=== PATIENT | male | born 1970 | race Caucasian/White ===

== ENCOUNTER → 2022-10-04 13:49 | Outpatient (BNVA) | payer MEDICAID, SELFPAY | PROVIDERS: PCP Nurse Practitioner; Visit Provider Student in an Organized Health Care Education/Training Program | DX: M17.0 Bilateral primary osteoarthritis of knee (principal) | CPT/HCPCS: 73560; 73565 ==

== ENCOUNTER → 2022-10-24 12:07 | Outpatient (BNVA) | payer MEDICAID, SELFPAY | PROVIDERS: PCP Nurse Practitioner; Visit Provider Family Medicine | DX: Z76.89 Persons encountering health services in other specified circumstances (principal); I10 Essential (primary) hypertension; Z01.818 Encounter for other preprocedural examination | CPT/HCPCS: 80053; 80061; 84153; 85025; 93005 ==

== ENCOUNTER 2022-11-07 16:59 | Outpatient (CLI) | payer BC, MEDICAID, SELFPAY ==
--- NOTE | 2022-11-07 17:15 | CT_ITS ---
WS: [id number] CT RIGHT knee, noncontrast HISTORY: M17.0 - Bilateral primary osteoarthritis of knee TECHNIQUE: Protocol for NAIN total knee replacement has been obtained. This includes axial imaging th rough the RIGHT hip, RIGHT knee and RIGHT ankle. DLP: 935.11 mGy.cm COMPARISON: RIGHT knee radiograph 10/04/2022 Pelvis: There is mild narrowing of the SI joints and hip joints. No fracture or dislocation. No destr uctive bone lesions. RIGHT knee: Tricompartment osteoarthritic changes. Hypertrophic bone. Joint spaces are moderately cain rowed. Small joint effusion. RIGHT ankle: No fractures. CT/CT knee RT wo con* [id number] IMPRESSION: CT imaging provided for [facility] robotic total knee replacement.
== END 2022-11-07 17:00 | disposition home or self-care (01) ==
LOC: RAD 17:06
PROVIDERS: Visit Provider Student in an Organized Health Care Education/Training Program
DX: M17.0 Bilateral primary osteoarthritis of knee (principal); Z01.818 Encounter for other preprocedural examination
CPT/HCPCS: 73700

== ENCOUNTER 2022-11-13 10:23 | Observation (INO) | payer BC, MEDICAID, SELFPAY ==
[2022-11-07 13:11] VITALS: BMI 29.5
[2022-11-07 13:41] LABS: Add Urine Microscopic? NO; Charge for UA Resulting for Rev
[2022-11-07 13:45] LABS: Basophils # 0.1 10^3/uL (0.0-0.1); Basophils % 0.8 %; Eosinophils # 0.1 10^3/uL (0.0-0.8); Eosinophils % 0.8 %; Hematocrit 48.6 % (42.0-52.0); Hemoglobin 16.5 g/dL (11.7-16.6); Lymphocytes # 1.5 10^3/uL (0.8-4.8); Lymphocytes % 19.9 %; Mean Corpuscular Hemoglobin 30.1 pg (28.0-34.0); Mean Corpuscular Volume 88.7 fl (80-94); Mean Platelet Volume 9.4 fL (7.4-10.4); Monocytes # 0.4 10^3/uL (0.2-0.9); Monocytes % 5.7 %; Neutrophils # 5.41 10^3/uL (1.8-7.7); Neutrophils % 72.4 %; Nucleated Red Blood Cells % 0 %; Platelet Count 227 10^3/cmm (130-400); Red Blood Count 5.48 10^6/uL (4.1-5.3); Red Cell Distribution Width 13.9 % (12.1-15.1); White Blood Count 7.5 10^3/uL (4.0-10.0)
--- NOTE | 2022-11-07 13:45 | ANES.PREANE2 ---
Pre-Anesthetic Assessment Height/Weight: Height 1.75 m Weight 90.718 kg Preop Diagnosis: Right knee degenerative joint disease Operation Date: 11/13/22 11:20 Proposed Procedures p right total knee arthroplasty isai assisted: [id number],[id number](Right) - Mino Philip, Familial anesthetic complications: None Was Beta Rita taken within 24 hours: N/A Was Clonidine taken within 24 hours: N/A Last intake: > 8hrs Social Tobacco (chews tobacco) and No alcohol hx of heavy alcohol use Exam alert, oriented x 3, clear to auscultation bilaterally and regular rate & rhythm Airway Mallampati: Class IV Dentition: other (multiple missing, poor dentition) Comments: Comments: large tongue and neck CV/HEM Hypertension Cardioverted in 2005 after drinking 2 gallons of whiskey over a weeken - 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 Able to achieve > 4 METS without symptoms Anesthetic Plan ASA status: 3 Anesthesia: Regional (specify below) Other: spinal + adductor canal Risk of > 500 ml blood loss (7ml/kg in children): No Medications/Allergies Home Medications Medication Instructions Recorded Confirmed Last Taken Type losartan 100 mg tablet 100 mg PO DAILY #90 tabs 10/24/22 11/07/22 11/07/22 Rx Allergies Allergy/AdvReac Type Severity Reaction Status Date / Time morphine Allergy ADR-Itching Verified 11/07/22 13:08 [facility] Anesthesia Social History (Updated 10/24/22 @ 11:07 by Jenni Putnam LPN) Smoking and tobacco status: current every day smoker smokeless tobacco Second hand smoke exposure: No Smoking risk assessment/counseling performed?: No Alcohol intake: current Alcohol intake frequency: holidays/special occasions only Alcohol type: beer Desire information about alcohol rehabilitation?: No Counseling given: No Desire information about substance/drug rehabilitation?: No Counseling given: No Adopted: No Caregiver/support person: No Lives independently: Yes Marital status: Single Number of children: 1 service: No Current occupational status: employed 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
[2022-11-07 13:54] LABS: Bilirubin Urine Neg (Negative); Blood Urine Neg (Negative); Glucose Urine UA Norm (Normal); Ketones Urine Negative (Negative); Leukocyte Esterase Urine Negative (Negative); Nitrate Urine Negative (Negative); Protein Urine Neg (Negative); Urine Appearance Clear (CLEAR); Urine Color Yellow (Yellow); Urobilinogen Urine Neg (Negative); pH Urine 6 (5-7)
[2022-11-07 14:07] LABS: Blood Urea Nitrogen 8 mg/dL (6-20); Calcium 9.4 mg/dL (8.5-10.5); Carbon Dioxide 23 mmol/L (22-29); Chloride 99 mmol/L (98-107); Creatinine Clr Calc Pharmacy 87.4524; Glomerular Filtration Rate 70.3 mL/min (90-130); Glucose 83 mg/dL (65-115); Osmolality Calculated 277 mOsm/kg (285-295); Sodium 135 mmol/L (136-145)
[2022-11-07 14:13] LABS: Anion Gap 16.7 (5-19); Potassium 3.7 mmol/L (3.5-5.1)
[2022-11-13] VITALS (21 sets, daily range): BP systolic 100–152; BP diastolic 64–95; PULSE 64–100; RESP 16–20; TEMP 36.3–36.8; O2SAT 92–100
[2022-11-13] MEDS: sodium chloride 0.9% 1,000 ML 30 ML IV (06:42)
[2022-11-13] MEDS: lactated ringers 500 ML IV (06:42)
[2022-11-13] MEDS: acetaminophen 1,000 MG/100 ML PIGGYBACK 400 MG IV ×3 (06:43→22:31)
[2022-11-13] MEDS: ketorolac 30 mg/mL INJ IVP (06:43)
--- NOTE | 2022-11-13 06:50 | P.HPUD_ITS ---
Surgery/Procedure H&P Update DATE OF PROCEDURE: November 13, 2022 DATE H&P PERFORMED: 10/04/22 CHANGES TO PREVIOUS DOCUMENTATION: None. Patient's completed preoperative process seen his primary care and cleared to proceed with surgical intervention. all questions answered. PREOP DIAGNOSIS: Right knee degenerative joint disease PRIMARY INDICATION FOR PROCEDURE: Right knee degenerative joint disease PLANNED PROCEDURE: Operation Date: 11/13/22 08:05 Proposed Procedures p right total knee arthroplasty [facility] assisted: [id number](Right) - Mino Philip DO
--- NOTE | 2022-11-13 06:51 | P.HP_ITS ---
Same Day Surgery H&P Indication for Procedure/HPI DATE OF PROCEDURE: November 13, 2022 CHIEF COMPLAINT/INDICATIONFOR SURGICAL PROCEDURE: Right knee degenerative joint disease, failed conservative treatment PREOP DIAGNOSIS: Right knee degenerative joint disease PLANNED PROCEDURE: Operation Date: 11/13/22 08:05 Proposed Procedures p right total knee arthroplasty isai assisted: [id number],M17.?9(Right) - Mino Swainatt, DO This is a new 52 year old male patient here with plans to proceed with a right total knee arthroplasty he was seen in the office in the outpatient setting on 10/04/2022 his examination as well as history remains unchanged. He has been seen and worked up by his primary care provider for medical optimization to proceed with right total knee arthroplasty. Patient states that his knee's have been causing him issues for years. Patient states that he has had a history of knee arthroscopy to the left knee once and the right knee twice. Patient states that the knee pops, cracks, swells, locks, and catches. Patient states he has instability to the knee. Patient states the knee feels weak. Patient states that this affects his daily activities. Patient states that the pain will wake him up at night.? Optimal medical management has been as follows: Anti-Inflammatories: IBU with some improvement, Celebrex with no Improvement. Bracing: Patient states he did have bracing when he was little. Patient states that bracing does not seem to help. Physical Therapy: none Injection Therapy:? Patient states he has had injections both cortisone and visco. Patient states that the last injection he recalls was years ago and states he stopped doing them as they failed to work for any significant period of time. Surgical: left knee scope and 2 right knee scopes Imaging received and reviewed with patient are: X-rays: 10/04/2022 MRI: no CT: no ROS Denies any fevers chills chest pain shortness of breath nausea or vomiting Medications/Allergies* Allergies/Adverse Reactions Allergy/AdvReac Type Severity Reaction Status Date / Time morphine Allergy ADR-Itching Verified 11/07/22 13:08 Current Medications: Generic Name Dose Route Start Last Admin Trade Name Freq PRN Reason Stop Dose Admin Sodium Chloride 1,000 mls @ 30 mls/hr 11/13/22 06:30 11/13/22 06:42 Sodium Chloride 0.9% IV 11/14/22 06:29 30 mls/hr .Q24H SARAHI Administration Lactated Ringer's 500 mls @ 500 mls/hr 11/13/22 06:21 11/13/22 06:42 Lactated Ringers IV 11/13/22 07:20 500 mls/hr .Q1H ONE Administration Pertinent History/Comorbid Conditions* Social History Smoking and tobacco status: current every day smoker smokeless tobacco Second hand smoke exposure: No Smoking risk assessment/counseling performed?: No Alcohol intake: current Alcohol intake frequency: holidays/special occasions only Alcohol type: beer Desire information about alcohol rehabilitation?: No Counseling given: No Desire information about substance/drug rehabilitation?: No Counseling given: No Adopted: No Caregiver/support person: No Lives independently: Yes Marital status: Single Number of children: 1 service: No Current occupational status: employed 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 Diffuse tenderness palpation over the medial lateral joint line.? Unable to tolerate a Paul's examination secondary to pain.? He has a negative Darya's.? He has noticeable varus deformity that is correctable with valgus stress on examination.? Significant palpable crepitus and patellar grind noted on range of motion.? Able to wiggle toes plantarflex and dorsiflex ankle mild joint effusion noted.? Recommendations Surgery/Procedure today Other Plans: Patient is failed conservative treatment he has been worked up by his primary care provider medically optimized for surgical intervention of a right total knee arthroplasty. He is failed conservative treatment at this point time understanding his risk for surgery he agrees to proceed with surgical intervention. All questions answered. Plan to proceed with right total knee arthroplasty?Isai robotic assisted. Coding Level of Care Code Acute Code for Chg Fwd Diagnoses
--- NOTE | 2022-11-13 07:24 | ECG_ITS ---
[facility] Test Date: 2022-11-13 Pat Name: Silas Solares Department: Room: Gender: Male Pmo Analyst: MANUEL: 1970 Requested By: Mino Philip Order Number: [id number] Deniz MD: Alcon Paz M.D. Measurements Intervals [place] Rate: 67 P: 42 VT: 155 QRS: -6 QRSD: 97 T: 107 QT: 366 QTc: 388 Interpretive Statements SINUS RHYTHM MODERATE T-WAVE ABNORMALITY, CONSIDER LATERAL ISCHEMIA [-0.1+ mV T-WAVE IN I/aVL/V5/V6] No previous ECG available for comparison Electronically Signed On 11-13-2022 16:23:25 CDT by Alcon Paz M.D. [id number]
[2022-11-13] MEDS: ceFAZolin 2,000 MG in sodium chloride 0.9% (plus) 50 ML 100 MG IV ×2 (07:41→16:31)
[2022-11-13] MEDS: EPINEPHrine 1 mg/mL INJ XX (08:36)
[2022-11-13] MEDS: tranexamic acid 1,000 mg/10mL SDV 1000 MG XX (08:36)
[2022-11-13] MEDS: ketorolac 30 mg/mL INJ XX (08:36)
--- NOTE | 2022-11-13 09:27 | P.ANESUD_ITS ---
Pre-Anesthetic Update Pre-Anesthetic Assessment: Date of Surgery/Procedure: 11/13/22 Preop Hue gnosis: Right knee degenerative joint disease Proposed Procedure: Operation Date: 11/13/22 08:05 Proposed Procedures p right total knee arthroplasty isai assisted: [id number],[id number].?9(Right) - Mino [place]ack, DO Any changes to Pre-Anesthetic Assessment?: No Last Intake: Intake Last Liquid Date 11/12/22 Last Liquid Time 22:00 Last Solid Date 11/12/22 Last Solid Time 20:00 Labs Last 48hrs: Blood Bank 11/13/22 06:45 Blood Type O Positive Rho(D) Type Positive Antibody Screen Negative Vitals: Temperature 98.3 F 11/13/22 06:31 Temperature Source Temporal Artery S can 11/13/22 06:31 Pulse Rate 100 11/13/22 06:31 Respiratory Rate 18 11/13/22 06:31 Blood Pressure 152/89 11/13/22 06:31 Blood Pressure Brenda n 110 11/13/22 06:31 Pulse Oximetry 100 11/13/22 06:31 Oxygen Delivery Me thod Room Air 11/13/22 06:31 Exam: Pre-Anes Outpt Exam: alert, oriented x 3, clear to auscultation bilaterally and regular rate & rhythm Cardiac Studies: No Data to Display Anesthesia Procedures Nerve Block: Nerve Block 1: Main Anesthesia: spinal anesthesia block Time Out Performed: Yes Consent: requested by attending/covering physician, from patient, risks and benefits reviewed and patient agrees to proceed Nerve block location: adductor canal (right) Anesthesia monitors applied: pulse oximetry, EKG, BP cuff and oxygen Nerve block position: supine Anesthetic Used: ropivicaine 0.5% Amount of anesthesia used (mL): 20 Ultrasound used to: recognize landmarks Nerve Stimulator Used?: No Interscalene/Femoral BLK: 4 stimuplex 21 g needle used for position and inplane approach Injection: neg aspiration of heme Patient Tolerated Procedure: well Complications: none
--- NOTE | 2022-11-13 10:11 | XR_ITS ---
WS: [id number] EXAMINATION: XR knee RT 1-2V [id number] REASON FOR EXAM: postop R TKA COMPARISON: None available. ORDER DATE: 11/13/2022 10:14 AM FINDINGS: There is satisfactory alignment of the prostheses at the knee joint. There is satisfactory prosthesis positioning of the total knee replacement components. There are small locules intra-articular and so ft tissue gas from recent surgery. XR/XR knee RT 1-2V [id number] IMPRESSION: Postoperative changes of the total knee arthroplasty.
--- NOTE | 2022-11-13 10:33 | PM.OP2 ---
Brief Operative Note Date of procedure: 11/13/22 Pre-op diagnosis: Right Knee Degenerative joint disease Post-op diagnosis: same Procedure Done: Right Total Knee arthoplasty-Hai Robotic assisted Surgeon: Mino Philip Estimated blood loss (mL): 40 Complications: None Post-op Plan: Patient taken back in stable condition recovering well. Patient received spinal anesthesia. Patient's pain controlled. Will be admitted to the floor postoperatively. Internal medicine consulted for assistance in medical management. Will receive appropriate pain medications, PT/OT, DVT prophylaxis, postoperative antibiotics and postoperative TXA. Patient will be allowed weightbearing as tolerated to the right lower extremity. Patient receive appropriate discharge instruction as well as pain medication postoperatively. We will have him follow-up with us in the office in 2 weeks upon discharge. Patient understands and agrees with current plan. All questions answered. Condition: stable Disposition: floor Coding Level of Care Code Acute Code for [place] Fwjonny
--- NOTE | 2022-11-13 10:33 | PM.PACU ---
PACU note Narrative: Patient taken to PACU in stable condition recovering well. Spinal anesthesia on and in fact still. Unable to assess motor or sensory secondary to spinal anesthesia. Distal pulses are palpable toes are warm well-perfused brisk cap refill less than 2 seconds compartments soft and compressible. Dressing clean dry and intact. Exam: awake Disposition: admitted
--- NOTE | 2022-11-13 10:34 | P.OP_ITS ---
Operative Report Date of procedure: November 13, 2022 Pre-op diagnosis: Preop Diagnosis Right knee degenerative joint disease Procedure: Post-op diagnosis: Same Procedure done: Right total knee arthroplasty, cemented?robotic assisted Hai Implants: Kathy triathlon size 4 femur? CR cemented Mckinney triathlon size 4 tibia universal baseplate cemented Kathy triathlon symmetric patella size 33 mm Kathy triathlon polyethylene 12 mm Kathy cement Surgeon: Mino Philip DO Estimated blood loss: 40 mL Tourniquet time: 64 minutes IV fluids: 900 mL Urine output: No [place] Complications: None Condition: stable Disposition: floor Brief History: Silas is a pleasant 52-year-old male in my practice with chronic right knee degenerative joint disease.? Patient's failed conservative treatment at this point in time his pain has been debilitating and his daily living. We talked about continued conservative approach versus operative intervention for right knee given the inro-wd-njgy arthritis and tricompartmental degenerative changes would recommend a right total knee arthroplasty as pt has failed conservative treatment.? Through shared decision making she would like to proceed with this. ? We talked about continued conservative treatment and surgical intervention as far as the risk benefits complications alternatives surgical and nonsurgical treatment options.? At this point time understanding pts risks with surgery pt agrees to proceed with surgical intervention.? Once again? risk with surgery include but are not limited to make it better make it worse blood clot, heart attack, stroke, on the table, infection, injury to nerves or vessels, persistent pain, arthrofibrosis, implant failure, infection.? Understanding these risks he agrees to proceed with surgical intervention consent was obtained in the office.? All questions answered. Procedure: Patient was seen and evaluated in the preoperative holding area.? Consent was reviewed and signed with patient with plan for right total knee arthroplasty.? All questions answered.? Correct extremities marked.? Patient seen and evaluated by the anesthesia department and once cleared for surgery was taken back to the operative suite.? Patient was placed into a supine position on the OR table.? All bony prominences were well-padded.? Patient was appropriately secured to the bed.? Patient underwent anesthesia per the anesthesia department.? Patient received spinal anesthesia..? A nonsterile tourniquet was applied to the right thigh.? At this point in time a final timeout performed.? Patient received appropriate preoperative antibiotics and TXA. Next the right lower extremity was then prepped and draped in standard orthopedic fashion.?Esmarch tourniquet was used exsanguinate the right lower extremity.? Tourniquet was insufflated to 250 mmHg. A standard anterior incision was made over midline of the knee.? Sharp scalpel excision through skin and subcutaneous tissue full-thickness skin flaps were made.? Fascia was elevated off of the extensor retinaculum was stable with medial parapatellar arthrotomy was then made.? The performed standard sequential releases with standard medial releases patient had a varus deformity.? Visualization of all 3 compartments was found to have eburnated bone in all 3 compartments with osteophyte formation.? Most pronounced medial joint space collapse with [id number] articulation.? Next the the patella was then stuffed laterally and the knee was then flexed.? [place] was placed superiorly and medial around the anterior aspect of the femur this was freed of synovium and I subsequently then placed by 2 femur pins to establish my femur arrays for the Hai robot.? These were then placed bicortically and? femur array was then appropriately secured with appropriate visualization.? Next attention was turned towards the tibial rays.? These were then drilled sequentially bicortically in parallel fashion and intraincisional.? I then placed my guide as well as my tibial array on in place.? This was appropriately secured and had excellent visualization with the Hai robot.? Next the tibial checkpoint as well as femur checkpoint were then placed.? At this point time I then subsequently established my head center as well as my medial lateral malleoli as well as my checkpoints.? Next utilizing standard Hai technology I then mapped out the appropriate points and confirmation points around the femur as well as the tibia in standard fashion.? Once this was then done I then removed all osteophytes in preparation for dynamic testing.? All osteophytes were removed as well as I removed the ACL and PCL was attenuated and insufficient as result this was then subsequently removed as well. Plan was for an ultracongruent poly which would accommodate for the incompetent PCL. Anterior horn of the lateral meniscus was excised.? At this point time the knee was brought into full extension and we performed our standard evaluation of our gap balancing stressing? ligaments and extension as well as flexion appropriate adjustments were made to have appropriate gap balancing in both flexion and extension.? Made appropriate adjustments for appropriate gap balancing altering our femoral and tibial cuts.? We get a preoperative plan evaluating our implants which was a size 4 femur and a size 4 tibia.? Next we brought in the Payteller robot and sequentially made our femur cuts.? All? bony cuts were then removed.? Finally we made our tibial cut.? Once this was done a standard PCL retractor was then placed into this position I excised the medial and lateral meniscus.? The tibial cut was then subsequently removed all excess bony debris was removed.?? I then utilized a lamina textile designer and remove the posterior osteophytes.? At this point time sized the tibia and confirmed this was a size 4.? I utilized our blunt probe to establish rotation of tibial implant using Payteller robot technology.? Once this was done I then placed my tibia size 4 trial in appropriate position and then subsequently placed tibial pins to hold this into place placed a size 9 mm poly as well as a size 4 femur which was appropriately impacted in place knee was then subsequently brought into extension.? When brought into extension and patient had hyperextension of the knee however the medial and lateral gaps did appear to be balanced as result I decided to increase poly thickness to a 12 mm. Once the 12 mm poly was then inserted patient achieved full extension as well as flexion and had symmetrical that balance is on the medial lateral side of both extension and flexion as well as through mid flexion. This was determined to be the appropriate poly thickness. Once this was done I had excellent balance gaps in flexion and extension with varus and valgus stresses.? At this point I was satisfied with these implants these were then verified and opened on the back table size 4 tibia, size 4 femur,? size 12 mm polythickness.? We did confirm appropriate gap balancing and stresses as well as alignment utilizing? Payteller and were satisfied with this plan.? ?At this point time with my trials in place I then towel clip the patella everted this made appropriate measurements subsequently utilizing freehand technique performed by patellar resurfacing this was confirmed to be appropriate resection and subsequently sized to be a 33 mm symmetric.? My drill peg guides were then clamped and appropriate position and appropriate position in the patella for appropriate tracking and parallel with the joint.? Pegs were drilled trial implant was placed and the knee was then subsequently ranged and found to have excellent patellar tracking.? Femur pegs were then drilled.? ? At this point time all of our trial implants were removed.? All checkpoints as well as guidepins and arrays were removed and appropriate counts made. Satisfied with our tibial placement rotation I then utilized the keel punch and prepped the tibia.? The wound bed? was thoroughly irrigated and dried and prepped for cementation.? Cement was mixed on the back table.? Once cement was ready this was then covered onto the tibia and the tibial baseplate was then impacted and all excess cement was removed.? Next the polyethylene was then impacted into place on the tibial baseplate.? Next cement was placed onto the femur as well as under the femur implants and impacted in to place and all excess cement was extruded.? Knee was taken into full extension? to clear all excess cement was removed.? Warm saline was placed over the joint.? I then towel clip patella and dried for cementation. cemented the patella into place.? This was all clamped and the cement was allowed to cure.? Thorough irrigation performed with pulse lavage.? I then placed my periarticular injection while the cement was curing.? Once cured the knee was taken through range of motion and had excellent stability and gaps balances.? Tourniquet was then deflated.? Once tourniquet was deflated hemostasis satisfactory with electrocautery.? Next I then subsequently closed the capsule with Ethibond suture as well as a running strata fix suture.? Knee was then taken through range of motion 30 times.? Next the skin was then closed in layered fashion of running stratifix sutures of deep and subcutenous tissue and skin.? Skin was then closed in flexion with a running 3 oh strata fix suture. And Prineo dressing was used for skin. Incision was covered with OpSite, ABDs soft roll and Dario wrap.? Patient was then awakened from anesthesia and taken to PACU in stable condition. Disposition: Patient taken to PACU in stable condition will be admitted to the floor for pain control PT/OT weight-bear as tolerated right lower extremity dressing changes as needed, DVT prophylaxis.?Pain control. Patient will receive appropriate postoperative antibiotics. patient will be seen today by the internal medicine team for medical management.? Patient will follow up with the office in 2 weeks.? Patient understands agrees with current plan.? All questions answered.
--- NOTE | 2022-11-13 10:48 | PM.CONSULT ---
Providers/Reason For Consult Consulting Physician/Specialty*: Alfonso Peng MD, hospitalist Reason for Consult*: Medical management Requesting Physician: Dr. Philip Attending Physician: Mino Philip DO History of Present Illness History of Present Illness Silas Solares is a 52 year old male who underwent right total knee arthroplasty today under the care of Dr. Philip. He wants me to see the patient medical management secondary to his hypertension. Patient reports no complaints currently. He reports he believes his blood pressure is under control at home. He also reports high cholesterol, but is not on any medicine for this. He is wanting and willing to receive some counseling and patient, regarding a low-cholesterol diet. He also reports a past history of holiday heart, 20 years ago, for what it sounds like atrial fibrillation and cardioversion after significant alcohol intake. He denies any heart issues since then. Review of Systems General: Reports: 10 or more systems reviewed and unremarkable except in HPI and below Const: Denies: fever(s) Card: Denies: chest pain Resp: Denies: dyspnea GI: Denies: hematochezia or melena Musc: Reports: joint pain Medications/Allergies Home Medications Medication Instructions Recorded Confirmed Last Taken Type losartan 100 mg tablet 100 mg PO DAILY #90 tabs 10/24/22 11/07/22 11/12/22 Rx oxycodone-acetaminophen 5 mg-325 1 tab PO Q6H PRN pain 7 days #28 11/13/22 Unknown Rx mg tablet (Percocet) tabs Allergies Allergy/AdvReac Type Severity Reaction Status Date / Time morphine Allergy ADR-Itching Verified 11/07/22 13:08 Current Medications Generic Name Dose Route Start Last Admin Trade Name Freq PRN Reason Stop Dose Admin Sodium Chloride 1,000 mls @ 30 mls/hr 11/13/22 06:30 11/13/22 10:46 Sodium Chloride 0.9% IV 11/14/22 06:29 30 mls/hr .Q24H SARAHI Infusion Tranexamic Acid 1,000 mg/ 110 mls @ 330 mls/hr 11/13/22 14:21 11/13/22 08:30 Sodium Chloride IV 11/13/22 14:40 Infused ONCE ONE Infusion PFSH Acute PFSH: Medical History (Updated 11/13/22 @ 10:55 by Alfonso Peng MD) Abnormal heart rhythm Atrial fibrillation, around 30 years of age, cardioversion, after alcohol intake Essential hypertension Surgical History (Updated 11/13/22 @ 10:50 by Alfonso Peng MD) H/O knee surgery H/O shoulder replacement H/O wrist surgery Family History Other CAD (coronary artery disease) Social History Smoking and tobacco status: current every day smoker smokeless tobacco Second hand smoke exposure: No Smoking risk assessment/counseling performed?: No Alcohol intake: current Alcohol intake frequency: holidays/special occasions only Alcohol type: beer Desire information about alcohol rehabilitation?: No Counseling given: No Desire information about substance/drug rehabilitation?: No Counseling given: No Adopted: No Caregiver/support person: No Lives independently: Yes Marital status: Single Number of children: 1 service: No Current occupational status: employed 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 Oropharynx clear Neck is supple no lymphadenopathy thyromegaly Cardiovascular regular rate and rhythm, no murmur Lungs clear no wheezing or crackles Abdomen is soft positive bowel sounds, no obvious organomegaly exam is deferred Extremities no cyanosis clubbing or edema. Cap refill brisk. Right knee with dressing. Skin no rash Neuro no obvious focal deficits Data 11/07/22 13:30 11/07/22 13:30 Other Labs: EKG done preoperative which I reviewed demonstrates normal sinus rhythm, normal axis, flipped T waves laterally and in V3 through 6. Previous EKG years ago demonstrates some flattening/nonspecific T wave abnormalities in the same locations I reviewed the knee x-ray done postoperative which demonstrates a total knee arthroplasty with cement. A&P Assessment and plan (1) S/P total knee replacement using cement: Surgery went well without obvious complications CBC tomorrow to check for any postoperative acute blood loss anemia. (2) Essential hypertension: Continue his losartan (3) Hyperlipidemia: He request the dietary meet with him. Will arrange this. He does not want to be on any medicine for his hyperlipidemia. Changed diet in hospital to low-cholesterol Plan History of holiday heart, with no recurrence in 30 years Orthopedics is going to use aspirin for DVT prophylaxis. Thank you for this consultation Consult Attestations Medical Necessity Statement: As per primary Diagnoses S/P total knee replacement using cement Z96.659 Essential hypertension I10 Hyperlipidemia E78.5 Time Spent (min) 29
[2022-11-13] MEDS: TRAMadol 50 mg Tablet PO ×2 (12:15→21:17)
[2022-11-13] MEDS: lactated ringers 1,000 ML 100 ML IV ×2 (12:15→21:14)
[2022-11-13] MEDS: chlorhexidine gluconate 0.12% Btl 473 mL 30 ML MUCOUS MEM ×3 (14:15→21:12)
--- NOTE | 2022-11-13 15:28 | ANE.PACU2 ---
Inpatient post-anesthesia follow up: Airway intact: Yes Vital signs: Temperature 97.7 F Pulse Rate 73 Respiratory Rate 18 Blood Pressure 125/83 Pulse Oximetry 95 Oxygen Delivery Me thod Room Air Oxygen Flow Rate 6 Fraction of Inspir ed Oxygen Hydration adequate: Yes Nausea and vomiting: No Pain level: 1 Mental status: Baseline
--- NOTE | 2022-11-13 15:47 | PC.OT ---
OT EVALUATION ORDERS RECEIVED. PATIENT DISPLAYS NO ADL DEFICITS. NO FURTHER SKILLED OT REQUIRED AT THIS TIME.
[2022-11-13] MEDS: HYDROmorphone 1 mg/mL INJ 1 mL 0.5 MG IVP ×2 (16:32→23:16)
[2022-11-13] MEDS: docusate sodium 100 mg Capsule PO (17:57)
[2022-11-13] MEDS: aspirin 325 mg EC Tablet PO (17:57)
[2022-11-13] MEDS: calcium carbonate 500 mg Chew Tablet 1000 MG PO (17:57)
[2022-11-13] MEDS: iron polysaccharide complex 150 mg Capsule PO (17:57)
[2022-11-13] MEDS: mupirocin oint 22 gm 1 APPLIC NASAL (17:58)
[2022-11-13] MEDS: oxyCODONE 5 mg IR Tab/Cap PO (17:59)
[2022-11-13] MEDS: ketorolac 30 mg/mL INJ 15 MG IVP (20:40)
[2022-11-13] MEDS: nicotine 7 mg Patch 1 PATCH TRANSDERMA (22:28)
[2022-11-13] MEDS: methocarbamol 500 mg Tablet PO (22:31)
[2022-11-14] VITALS (9 sets, daily range): BP systolic 138–164; BP diastolic 95–108; PULSE 71–79; RESP 16–20; TEMP 36.6–36.7; O2SAT 95–96
[2022-11-14] MEDS: ceFAZolin 2,000 MG in sodium chloride 0.9% (plus) 50 ML 100 MG IV ×2 (00:09→08:38)
[2022-11-14] MEDS: HYDROmorphone 1 mg/mL INJ 1 mL 0.5 MG IVP (03:52)
[2022-11-14] MEDS: oxyCODONE 5 mg IR Tab/Cap PO ×2 (05:32→10:01)
[2022-11-14] MEDS: acetaminophen 1,000 MG/100 ML PIGGYBACK 400 MG IV (05:33)
[2022-11-14] MEDS: ondansetron 2 mg/ML SDV 2 mL 4 MG IVP (05:40)
[2022-11-14 05:53] LABS: Basophils # 0.1 10^3/uL (0.0-0.1); Basophils % 0.6 %; Eosinophils # 0.1 10^3/uL (0.0-0.8); Eosinophils % 1.1 %; Hematocrit 43.7 % (42.0-52.0); Hemoglobin 14.3 g/dL (11.7-16.6); Lymphocytes # 1.2 10^3/uL (0.8-4.8); Lymphocytes % 12.3 %; Mean Corpuscular HGB Conc 32.7 g/dL (30.0-36.0); Mean Corpuscular Hemoglobin 30.4 pg (28.0-34.0); Mean Corpuscular Volume 92.8 fl (80-94); Mean Platelet Volume 9.2 fL (7.4-10.4); Monocytes # 0.7 10^3/uL (0.2-0.9); Monocytes % 7.3 %; Neutrophils # 7.68 10^3/uL (1.8-7.7); Neutrophils % 78.4 %; Nucleated Red Blood Cells % 0 %; Platelet Count 214 10^3/cmm (130-400); Red Blood Count 4.71 10^6/uL (4.1-5.3); Red Cell Distribution Width 14.4 % (12.1-15.1); White Blood Count 9.8 10^3/uL (4.0-10.0)
[2022-11-14 06:12] LABS: Blood Urea Nitrogen 11 mg/dL (6-20); Calcium 8.9 mg/dL (8.5-10.5); Carbon Dioxide 20 mmol/L (22-29); Chloride 103 mmol/L (98-107); Glomerular Filtration Rate 78.5 mL/min (90-130); Glucose 115 mg/dL (65-115); Osmolality Calculated 280 mOsm/kg (285-295); Sodium 135 mmol/L (136-145)
[2022-11-14 06:16] LABS: Anion Gap 16.3 (5-19); Potassium 4.3 mmol/L (3.5-5.1)
--- NOTE | 2022-11-14 08:36 | PM.PN ---
Subjective Subjective: No events overnight. Has some pain in the leg for which he wants some Ultram. Blood pressure slightly high, as expected postoperative and in pain Medications: Reviewed: Yes Vitals/I&O/Wt Last Vital Signs Temp 97.9 F 11/14/22 07:48 Pulse 71 11/14/22 08:35 Resp 18 11/14/22 08:35 BP 138/97 11/14/22 07:48 Pulse Ox 96 11/14/22 08:35 O2 Del Method Room Air 11/14/22 08:35 O2 Flow Rate 6 11/13/22 10:15 11/13/22 11/14/22 11/14/22 22:59 06:59 14:59 Intake Total 1628.333 / 3015.333 1650 / 4665.333 Output Total 200 / 240 350 / 590 Balance 1428.333 / 2775.333 1300 / 4075.333 Physical Exam Narrative: General exam no distress Neck is supple no lymphadenopathy thyromegaly Cardiovascular regular rate and rhythm, no murmur Lungs clear no wheezing or crackles Abdomen is soft positive bowel sounds, no obvious organomegaly Extremities no cyanosis clubbing or edema. Cap refill brisk. Right knee with dressing. No foot drop Data 11/14/22 05:41 11/14/22 05:41 A&P Assessment and plan (1) S/P total knee replacement using cement: Surgery went well without obvious complications CBC reviewed. No concerns with postoperative anemia (2) Essential hypertension: Continue his losartan. Creatinine is normal (3) Hyperlipidemia: He request the dietary meet with him. Will arrange this. He does not want to be on any medicine for his hyperlipidemia. Changed diet in hospital to low-cholesterol Plan History of holiday heart, with no recurrence in 30 years Orthopedics is going to use aspirin for DVT prophylaxis. Thank you for this consultation Medically stable at this time for discharge Attestations Medical Necessity Statement*: As per primary Diagnoses S/P total knee replacement using cement Z96.659 Essential hypertension I10 Hyperlipidemia E78.5 Time Spent (min) 15
[2022-11-14] MEDS: cholecalciferol (vitamin D3) 1,000 unit Tablet 1000 UNIT PO (08:38)
[2022-11-14] MEDS: calcium carbonate 500 mg Chew Tablet 1000 MG PO (08:38)
[2022-11-14] MEDS: iron polysaccharide complex 150 mg Capsule PO (08:38)
[2022-11-14] MEDS: aspirin 325 mg EC Tablet PO (08:38)
[2022-11-14] MEDS: losartan 50 mg Tablet 100 MG PO (08:38)
[2022-11-14] MEDS: TRAMadol 50 mg Tablet PO (08:38)
[2022-11-14] MEDS: multivitamin therapeutic Tablet 1 TAB PO (08:38)
[2022-11-14] MEDS: ketorolac 30 mg/mL INJ 15 MG IVP (10:02)
--- NOTE | 2022-11-14 10:48 | P.DS_ITS ---
Discharge Providers Date of Admission: 11/13/22 10:23 Date of Discharge: November 14, 2022 Attending Provider at Admission: Mino Philip DO Attending Provider at Discharge: Mino Philip DO Consults: Dr. Peng?hospitalist Diagnoses at Discharge Discharge Diagnosis (1) S/P total knee replacement using cement: Status: Acute (2) Essential hypertension: Status: Acute (3) Hyperlipidemia: Status: Acute Reason for Visit Reason for Visit: M25.569 Brief History: Right knee degenerative joint disease failed conservative treatment with plan for right total knee arthroplasty Hospital Course Hospital Course Patient was brought into the preoperative holding area to the hospital with plan for right total knee arthroplasty. He is went through preoperative clearance process and cleared for surgery. He is failed conservative approach for his right knee degenerative joint disease and is here today for right total knee a rthroplasty. Once cleared by anesthesia he was taken back to the operative suite he underwent spinal anesthesia and then subsequently underwent a right total knee arthroplasty Hai robotic assisted without any complications. He subsequently was taken back to PACU in stable condition. He was admitted to the floor postoperatively. Internal medicine was consulted for internal medicine medical management and assistance. Patient received appropriate pain control, DVT prophylaxis, postoperative antibiotics as well as postoperative TXA. His labs were monitored postoperatively and stable hemoglobin on postoperative day 1. Was weightbearing as tolerated to the right lower extremity dressing was changed as needed. It was deemed on postoperative day 1 after working with PT/OT as well cleared by orthopedics and internal medicine the patient was deemed stable for discharge from internal medicine and orthopedic standpoint. Patient was then subsequently discharged on postoperative day 1. He received appropriate discharge instructions as well as pain medication and DVT prophylaxis postoperatively. We will follow-up with Dr. Philip in orthopedic office in 2 weeks. Patient understands and agrees with current plan. All questions answered. Physical Exam Narrative: Dressing on in place clean dry and intact. Dario bandage still on in place and left in place. Patient's compartments are soft and compressible. Calf soft and nontender. Spinal anesthesia is worn off. Patient is able to wiggle toes, plantarflex and dorsiflex ankle. Distal pulses are palpable toes are warm and well-perfused. Brisk cap refill less than 2 seconds. Patient ambulating with four-legged walker in the hospital room Discharge Data Studies Completed and Pending Completed Studies During Hospitalization Category Date Time Status XR knee RT 1-2V [id number] Routine Exams 11/13/22 10:11 Completed Pending at discharge Category Date Time Status Basic Metabolic Panel AM LABS Lab 11/15/22 04:00 Ordered Basic Metabolic Panel AM LABS Lab 11/16/22 04:00 Ordered Complete Blood Count w/Auto AM LABS Lab 11/15/22 04:00 Ordered Complete Blood Count w/Auto AM LABS Lab 11/16/22 04:00 Ordered Radiology Impressions Knee X-Ray 11/13/22 10:11 IMPRESSION: Postoperative changes of the total knee arthroplasty. Laboratory Results WBC 9.8 10^3/uL (4.0-10.0) 11/14/22 05:41 RBC 4.71 10^6/uL (4.1-5.3) 11/14/22 05:41 Hgb 14.3 g/dL (11.7-16.6) 11/14/22 05:41 Hct 43.7 % (42.0-52.0) 11/14/22 05:41 MCV 92.8 fl (80-94) 11/14/22 05:41 MCH 30.4 pg (28.0-34.0) 11/14/22 05:41 MCHC 32.7 g/dL (30.0-36.0) 11/14/22 05:41 RDW 14.4 % (12.1-15.1) 11/14/22 05:41 Plt Count 214 10^3/cmm (130-400) 11/14/22 05:41 MPV 9.2 fL (7.4-10.4) 11/14/22 05:41 Neut % (Auto) 78.4 % 11/14/22 05:41 Lymph % (Auto) 12.3 % 11/14/22 05:41 [place] % (Auto) 7.3 % 11/14/22 05:41 Eos % (Auto) 1.1 % 11/14/22 05:41 Baso % (Auto) 0.6 % 11/14/22 05:41 Neut # (Auto) 7.68 10^3/uL (1.8-7.7) 11/14/22 05:41 Lymph # (Auto) 1.2 10^3/uL (0.8-4.8) 11/14/22 05:41 [place] # (Auto) 0.7 10^3/uL (0.2-0.9) 11/14/22 05:41 Eos # (Auto) 0.1 10^3/uL (0.0-0.8) 11/14/22 05:41 Baso # (Auto) 0.1 10^3/uL (0.0-0.1) 11/14/22 05:41 Nucleated RBC % (auto) 0 % 11/14/22 05:41 Nucleated RBCs # 0.0 /100WBC 11/14/22 05:41 Sodium 135 mmol/L (136-145) L 11/14/22 05:41 Potassium 4.3 mmol/L (3.5-5.1) 11/14/22 05:41 Chloride 103 mmol/L (98-107) 11/14/22 05:41 Carbon Dioxide 20 mmol/L (22-29) L 11/14/22 05:41 Anion Gap 16.3 (5-19) 11/14/22 05:41 BUN 11 mg/dL (6-20) 11/14/22 05:41 Creatinine 1.0 mg/dL (0.7-1.2) 11/14/22 05:41 GFR Calculation 78.5 mL/min (90-130) L 11/14/22 05:41 Glucose 115 mg/dL (65-115) 11/14/22 05:41 Calculated Osmolality 280 mOsm/kg (285-295) L 11/14/22 05:41 Calcium 8.9 mg/dL (8.5-10.5) 11/14/22 05:41 Urine Color Yellow (Yellow) 11/07/22 13:30 Urine Appearance Clear (CLEAR) 11/07/22 13:30 Urine pH 6 (5-7) 11/07/22 13:30 Ur Specific [place] 1.010 (1.005-1.030) 11/07/22 13:30 Urine Protein Neg (Negative) 11/07/22 13:30 Urine Glucose (UA) Norm (Normal) 11/07/22 13:30 Urine Ketones Negative (Negative) 11/07/22 13:30 Urine Blood Neg (Negative) 11/07/22 13:30 Urine Nitrate Negative (Negative) 11/07/22 13:30 Urine Bilirubin Neg (Negative) 11/07/22 13:30 Urine Urobilinogen Neg mg/dL (Negative) 11/07/22 13:30 Ur Leukocyte Esterase Negative (Negative) 11/07/22 13:30 Blood Type O Positive 11/13/22 06:45 Rho(D) Type Positive 11/13/22 06:45 Antibody Screen Negative 11/13/22 06:45 Procedures Performed Right total knee arthroplasty, cemented?Hai robotic assisted Vitals Last Vital Signs Temp 97.9 F 11/14/22 07:48 Pulse 71 11/14/22 08:35 Resp 18 11/14/22 10:01 BP 138/97 11/14/22 08:38 Pulse Ox 96 11/14/22 08:35 O2 Del Method Room Air 11/14/22 08:35 O2 Flow Rate 6 11/13/22 10:15 Discharge Plan Discharge Patient Disposition: Home Condition: Stable Prescriptions: New Percocet 5-325 mg tablet 1 tab PO Q6H PRN (Reason: pain) 7 Days Qty: 28 0RF Colace 100 mg capsule 100 mg PO DAILY PRN (Reason: constipation) 10 Days Qty: 10 0RF ondansetron 4 mg tablet,disintegrating 4 mg PO DAILY 5 Days Qty: 5 0RF aspirin 325 mg tablet 325 mg PO BID 14 Days Qty: 28 0RF tramadol 100 mg tablet 100 mg PO Q8H PRN (Reason: postop mild pain) 7 Days Qty: 21 0RF Continued losartan 100 mg tablet 100 mg PO DAILY Qty: 90 3RF Rx Instructions: Take 1/2 tab daily x 7 days then increase to one tab daily. Discharge Orders: Discharge Order (Routine); Ordered 11/14/22 Ordered By: Mino Philip Referrals: Jose Ewing DO [Physician] - (Sent message to clinic.) Mino Philip DO [Physician] - 12/02/22 11:15 am () Discharge Diet: Advance as tolerated Discharge Activity: Increase activity as tolerated Patient Instructions: Oxycodone/Acetaminophen (By mouth), Laxative, Stool Softeners (By mouth), Tramadol (By mouth), Ondansetron (By mouth), Knee Replacement (DC), Joint Replacement Stoplight, Opioid Safety Activity Restrictions/Additional Instructions: Orthopedic discharge instructions: Patient may be weightbearing as tolerated to the right lower extremity Encourage knee range of motion Elevation and ice as needed Leave Dario wrap dressing on in place for 72 hours postoperatively. Then may remove Dario wrap, continue sponge baths. No baths or soaks are around incision Keep incision clean dry and intact Take pain medication as prescribed (take tramadol for mild pain, may take Percocet for severe pain) Take antinausea medication as needed Supplement with Colace for constipation if needed Take aspirin 325 twice daily for blood clot prevention Follow-up with Dr. Philip in the office in 2 weeks Contact the office for any questions or concerns Discharge Attestations Time Spent in Discharge Care*: greater than 30 min Quality Metrics Clinical Quality Measures [ No reported AMI, CVA or VTE this stay] Coding Level of Care Code Acute Code for Chg Fwd Diagnoses S/P total knee replacement using cement Z96.659 Essential hypertension I10 Hyperlipidemia E78.5
--- NOTE | 2022-11-14 12:44 | PC.CHAP ---
Pastoral Care Encounter/Spiritual Assessment Type of Contact [] Declined entry rep visit [] Patient/Family/Request visit [] Outpatient visit [] Follow-up visit [] Physician referral [] Code/Alert [x] Routine visit [] Staff referral [] Actively dying [] Patient sleeping [] Family support [] [] Out of room [] Palliative care [] [xx] Receiving care in room [] Pre-surgical visit [] Trauma [] Long length of stay [] ICU visit [] Other: Relational/Emotional Strength [x] Patient feels connected with others/family/visitors/staff [] Distress [] Loneliness/isolation [] Abandonment Spirituality of Patient [x] Person of Laure [] Attends Christianity of their Laure [x] Believes in Prayer [] Reads Bible or Samaritan materials [] There are Spiritual issues to be addressed [employer] Tender Interventions [x] Prayer [x] Active listening [x] Non-anxious presence [x] Spiritual/emotional support [] Crisis/trauma care [x] Spiritual counseling [] Bereavement support [] Provided bereavement packet [] Provided Bible/devotional materials [] Provided toy/stuffed animal, coloring book to patient or family member [] Provided Communion [] Anointing/[place] [] Salvation [x] Completed spiritual assessment [] Other: Impact on Illness or Injury [] Angry [] Fearful [] Anxious [] Often cries [] Exhaustion [] Unable to work [] Unable to attend mandaen [] Unable to walk/stand [] Unable to read [] Unable to drive [] Unable to eat/drink [] Unable to sleep [] Unable to be with family [] Patient intubated [] Other: Summary knee replacement in some well go home Time spent with patient 10 mins
--- NOTE | 2022-11-17 11:25 | PM.MISC ---
Miscellaneous Note Purpose of Documentation: Orthopedic note update: Evening rounds was performed on patient postoperatively on postoperative day 0. Patient spinal anesthesia has worn off. Patient is able to wiggle toes plantarflex and dorsiflex ankle. Sensations intact to light touch distally. Distal pulses are palpable toes are warm and well-perfused dressings on in place and clean dry and intact. Calves are soft and nontender compartments are soft and compressible. Patient is able to ambulate around the room with a walker already patient overall doing well and his pain is controlled. Plan to round on patient tomorrow morning with likely discharge tomorrow home. Patient understands and agrees with current plan. All questions answered. No other issues at this time patient is tolerating diet. Mino Philip, /orthopedic surgery
== END 2022-11-14 12:38 | disposition home or self-care (01) ==
LOC: MEDSURG 10:25
PROVIDERS: Admitting Provider Student in an Organized Health Care Education/Training Program; Visit Provider Student in an Organized Health Care Education/Training Program
PROC: 8E0Y0CZ Robotic Assisted Procedure of Lower Extremity, Open Approach (ICD-10-PCS; CPT 27447; principal; 2022-11-13 08:05)
DX: M17.11 Unilateral primary osteoarthritis, right knee (principal); I10 Essential (primary) hypertension; E78.5 Hyperlipidemia, unspecified; F17.220 Nicotine dependence, chewing tobacco, uncomplicated; Z88.5 Allergy status to narcotic agent
CPT/HCPCS: 27447; 36415; 73560; 80048; 81003; 85025; 86850; 86900; 93005; 97110; 97116; 97161; C1776; G0378; J0131; J0171; J0690; J1170; J1885; J2250; J2370; J2405; J2704; J2795; J3010; J7030; J7120

== ENCOUNTER → 2022-12-02 10:51 | Outpatient (BNVA) | payer BC, MEDICAID, SELFPAY | PROVIDERS: PCP Family Medicine; Visit Provider Student in an Organized Health Care Education/Training Program | DX: Z47.89 Encounter for other orthopedic aftercare (principal); Z96.659 Presence of unspecified artificial knee joint | CPT/HCPCS: 73560; 73565 ==

== ENCOUNTER → 2023-01-08 09:11 | Outpatient (BNVA) | payer BC, MEDICAID, SELFPAY | PROVIDERS: PCP Family Medicine; Visit Provider Nurse Practitioner Family | DX: Z96.651 Presence of right artificial knee joint (principal) | CPT/HCPCS: 73560; 73565 ==

== ENCOUNTER → 2023-04-16 08:58 | Outpatient (BNVA) | payer BC, MEDICAID, SELFPAY | PROVIDERS: PCP Family Medicine; Visit Provider Nurse Practitioner Family | DX: Z96.651 Presence of right artificial knee joint; M17.12 Unilateral primary osteoarthritis, left knee | CPT/HCPCS: 73560; 73565 ==

== ENCOUNTER → 2023-04-17 13:34 | Outpatient (BNVA) | payer BC, MEDICAID, SELFPAY | PROVIDERS: PCP Family Medicine; Visit Provider Nurse Practitioner Family | DX: M17.12 Unilateral primary osteoarthritis, left knee (principal) | CPT/HCPCS: 73560; 73565 ==

== ENCOUNTER 2023-05-12 17:51 | Inpatient (IN) | payer BC, SELFPAY ==
[2023-05-12 17:58] VITALS: BP 129/89; PULSE 79; RESP 17; TEMP 36.4; O2SAT 100; BMI 32.5
--- NOTE | 2023-05-12 18:02 | XRR_ITS ---
PROCEDURE INFORMATION: Exam: XR Chest Exam date and time: 05/12/2023 6:06 PM Age: 53 years old Clinical indication: Pain; Chest pressure; Prior surgery; Surgery date: 6+ months; Surgery type: RT shoulder; Additional info: Chest pain TECHNIQUE: Imaging protocol: Radiologic exam of the chest. Views: 1 view. COMPARISON: No relevant prior studies available. FINDINGS: Lungs: Unremarkable. No consolidation. Pleural spaces: Unremarkable. No pleural effusion. No pneumothorax. Heart/Mediastinum: Unremarkable. No cardiomegaly. Bones/joints: Unremarkable. XR/XR chest 1V portable [id number] IMPRESSION: No acute findings.
--- NOTE | 2023-05-12 18:02 | ECG_ITS ---
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 Measurements Intervals [place] Rate: 80 P: 32 ND: 159 QRS: -16 QRSD: 95 T: 206 QT: 366 QTc: 422 Interpretive Statements SINUS RHYTHM ST DEVIATION AND MODERATE T-WAVE ABNORMALITY, CONSIDER ANTEROLATERAL ISCHEMIA [-0.1+ mV T-WAVE IN V3-V6] ST DEVIATION AND MODERATE T-WAVE ABNORMALITY, CONSIDER INFERIOR ISCHEMIA [-0.1+ mV T-WAVE IN II/aVF] Compared to ECG 11/13/2022 07:24:06 No significant changes Electronically Signed On 05-12-2023 19:33:27 CDT by Alcon Paz M.D. [id number]
--- NOTE | 2023-05-12 18:06 | ED_ITS ---
HPI - Chest Pain General: Chief Complaint: Chest Pain Stated Complaint: chest pain Time Seen by Provider: 05/12/23 18:02 Source: patient Mode of arrival: ambulatory Limitations: no limitations History of Present Illness: Patient is a very nice 53-year-old male with a history of HTN and hyperlipidemia as well as tobacco use (chewing) for complaints of intermittent chest pains over the past 3 weeks. Patient states he has noticed over the past 3 weeks or so he gets left-sided chest pain and shortness of breath with exertion. He states symptoms seem to alleviate at rest. He states over the past several days he has began noticing pain down into his left arm and neck which made him concerned thus prompting his emergency evaluation. Patient states he is on multiple antihypertensive medications. He states that his primary care provider wanted him to try dietary control for his hyperlipidemia prior to starting medication. Patient denies any previous pulmonary or cardiac history. Is not noticed any swelling to his lower extremities or pain. He does have some mild swelling to the right knee joint following the knee replacement in 11/2022 but this has been unchanged since surgery. MD complaint: chest pain Onset (ago): week(s) Timing of current episode: episodic Prior episodes: Yes Onset: during exertion Pain location: left chest Pain radiation: left arm and neck Severity: moderate Quality: tightness and heaviness Relieving factors: rest Exacerbating factors: exertion Associated symptoms: Reports dyspnea (with onset of chest pain; alleviated with rest); Deny abdominal pain, fever(s), nausea, palpitations, syncope or vomiting Treatment prior to arrival: none Risk Factors: Coronary artery disease risk factors: hyperlipidemia and hypertension Thoracic aortic dissection risk factors: none Review of Systems Const: Denies: fever(s), chills, body aches, fatigue or malaise Card: Reports: chest pain and dyspnea on exertion; Denies: palpitations, irregular heart rhythm, edema, swelling of feet/ankles, lightheadedness, syncope, pre-syncope, orthopnea, leg pain with exertion or acrocyanosis Resp: Reports: dyspnea (with onset of chest pain; alleviated with rest); Denies: productive cough, non-productive cough, wheezing, stridor, pain on inspiration, change in phlegm color, hemoptysis or chest congestion GI: Denies: abdominal pain, nausea or vomiting Musc: Reports: joint swelling (states R knee is a little more swollen than L following surgery 11/2022); Denies: neck pain, back pain, extremity pain, extremity swelling, joint pain, joint redness, joint warmth, joint stiffness, limited range of motion, muscle cramps, muscle weakness or decrease in muscle mass Neuro: Denies: headache(s), numbness in extremities, weakness in extremities, sensory changes or dizziness PFSH ED PFSH: Medical History Abnormal heart rhythm Atrial fibrillation, around 30 years of age, cardioversion, after alcohol intake Essential hypertension Surgical History H/O knee surgery H/O shoulder replacement H/O wrist surgery Family History Other CAD (coronary artery disease) Social History Smoking and tobacco status: former smoker Quit status (tobacco): has quit using tobacco Former quit date comment: 09/2022 Second hand smoke exposure: No Smoking risk assessment/counseling performed?: No Alcohol intake: current Alcohol intake frequency: holidays/special occasions only Alcohol type: beer Desire information about alcohol rehabilitation?: No Counseling given: No Substance/Drug Use: never Desire information about substance/drug rehabilitation?: No Counseling given: No Adopted: No Caregiver/support person: No Lives independently: Yes Marital status: Single Number of children: 1 service: No Current occupational status: employed 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 Current occupational exposures/hazards: Yes Pets and animals: No Do you think of yourself as: Straight/Heterosexual Current gender identity: Male Physical Exam Const: COMMON NORMALS: no acute distress, average body habitus, patient oriented x3, no limitations, alert and well nourished GENERAL APPEARANCE: cooperative ORIENTATION/CONSCIOUSNESS: Yes awake, Yes oriented to person, Yes oriented to place and Yes oriented to time HENMT: COMMON NORMALS: normocephalic and atraumatic HEAD & SCALP: normal to inspection, normocephalic and atraumatic Neck/C-Spine: COMMON NORMALS: full ROM, no lymphadenopathy, supple and no meningeal signs Chest: COMMONS NORMALS: normal inspection of the chest Resp: COMMON NORMALS: normal respiratory effort and clear to auscultation bilaterally AUSCULTATION: clear to auscultation bilaterally Cardio: COMMON NORMALS: regular rate and regular rhythm RATE: regular rate RHYTHM: regular rhythm GI: COMMON NORMALS: Normal to inspection, nondistended, normoactive bowel sounds present, Soft to palpation, non-tender, No hepatosplenomegaly present and no masses PALPATION: Yes Soft to palpation and Yes No hepatosplenomegaly present : COMMON NORMALS: Yes no CVA tenderness BLADDER/KIDNEY EXAM: Yes no CVA tenderness Back/Pelvis: COMMON NORMALS: no CVA tenderness and thoracic and lumbar spine normal to inspection Extremity: COMMON NORMALS: normal to inspection, full ROM, capillary refill normal, no clubbing, cyanosis or edema, no calf tenderness and no pedal edema GENERAL: Yes normal exam except as noted RIGHT LOWER EXTREMITY: Yes knee joint (mild swelling) Neuro: COMMON NORMALS: patient oriented x3, moves all extremities, no focal motor deficits and no sensory deficits noted SENSORIUM/ORIENTATION: Yes alert, Yes oriented to person, Yes oriented to place and Yes oriented to time MENINGEAL SIGNS: Yes no meningeal signs Skin: COMMON NORMALS: no rashes or lesions noted GENERAL SKIN EXAM: no rashes or lesions noted Course Vital Signs: Vital signs: Vital Signs Temperature 97.6 F 05/12/23 17:58 Pulse Rate 79 05/12/23 17:58 Respiratory Rate 17 05/12/23 17:58 Blood Pressure 129/89 05/12/23 17:58 Pulse Oximetry 100 05/12/23 17:58 Oxygen Delivery Me thod Room Air 05/12/23 17:58 MDM - Chest Pain Medical Decision Making Patient is a 53-year-old male here for progressively worsening exertional chest pain. Heart score of 6. EKG showing diffuse anterolateral inverted T waves. These were present back in November but provider at the time thought they most likely were secondary to lead placement. Given history now and risk factors he neeeds admitted for cardiac work up. Spoke to Dr. Stephenson who agrees with decision to admit. Spoke to hospitalist for admission. Lab Data 05/12/23 18:12 05/12/23 18:12 Radiology Impressions Chest X-Ray 05/12/23 18:02 IMPRESSION: No acute findings. Laboratory Results WBC 7.71 10^3/uL (3.29-11.43) 05/12/23 18:12 RBC 4.75 10^6/uL (3.85-5.65) 05/12/23 18:12 Hgb 15.10 g/dL (11.27-16.99) 05/12/23 18:12 Hct 43.1 % (37-53) 05/12/23 18:12 MCV 90.7 fl (82-101) 05/12/23 18:12 MCH 31.8 pg (27-33) 05/12/23 18:12 MCHC 35.0 g/dL (30-55) 05/12/23 18:12 RDW 15.5 % (12.1-15.1) H 05/12/23 18:12 Plt Count 254 10^3/cmm (157-399) 05/12/23 18:12 MPV 8.7 fL (7.4-10.4) 05/12/23 18:12 Neut % (Auto) 71.0 % 05/12/23 18:12 Lymph % (Auto) 19.8 % 05/12/23 18:12 [place] % (Auto) 7.8 % 05/12/23 18:12 Eos % (Auto) 0.6 % 05/12/23 18:12 Baso % (Auto) 0.4 % 05/12/23 18:12 Neut # (Auto) 5.47 10^3/uL (1.8-7.7) 05/12/23 18:12 Lymph # (Auto) 1.5 10^3/uL (0.8-4.8) 05/12/23 18:12 [place] # (Auto) 0.6 10^3/uL (0.2-0.9) 05/12/23 18:12 Eos # (Auto) 0.1 10^3/uL (0.0-0.8) 05/12/23 18:12 Baso # (Auto) 0.0 10^3/uL (0.0-0.1) 05/12/23 18:12 Nucleated RBC % (auto) 0 % 05/12/23 18:12 Nucleated RBCs # 0.0 /100WBC 05/12/23 18:12 PT 13.00 SECONDS (12.1-14.9) 05/12/23 18:12 INR 0.96 (0.8-1.2) 05/12/23 18:12 APTT 32.5 SECONDS (23.9-36.7) 05/12/23 18:12 Sodium 130 mmol/L (136-145) L 05/12/23 18:12 Potassium 3.9 mmol/L (3.5-5.1) 05/12/23 18:12 Chloride 91 mmol/L (98-107) L 05/12/23 18:12 Carbon Dioxide 25 mmol/L (22-29) 05/12/23 18:12 Anion Gap 17.9 (5-19) 05/12/23 18:12 BUN 27 mg/dL (6-20) H 05/12/23 18:12 Creatinine 3.3 mg/dL (0.7-1.2) H 05/12/23 18:12 GFR Calculation 19.7 mL/min (90-130) L 05/12/23 18:12 Glucose 88 mg/dL (65-115) 05/12/23 18:12 Calculated Osmolality 275 mOsm/kg (285-295) L 05/12/23 18:12 Calcium 10.1 mg/dL (8.5-10.5) 05/12/23 18:12 Total Bilirubin 0.8 mg/dL (0.15-1.2) 05/12/23 18:12 AST 45 U/L (0-40) H 05/12/23 18:12 ALT 75 U/L (0-41) H 05/12/23 18:12 Alkaline Phosphatase 95 U/L (40-130) 05/12/23 18:12 Troponin T Baseline 14 ng/L (0-15) 05/12/23 18:12 Total Protein 7.4 g/dL (6.6-8.7) 05/12/23 18:12 Albumin 4.7 g/dL (3.5-5.2) 05/12/23 18:12 Globulin 2.7 g/dL (1.3-4.6) 05/12/23 18:12 Urine Color Yellow (Yellow) 05/12/23 19:20 Urine Appearance Clear (CLEAR) 05/12/23 19:20 Urine pH 5 (5-7) 05/12/23 19:20 Ur Specific [place] 1.015 (1.005-1.030) 05/12/23 19:20 Urine Protein Neg (Negative) 05/12/23 19:20 Urine Glucose (UA) Norm (Normal) 05/12/23 19:20 Urine Ketones Negative (Negative) 05/12/23 19:20 Urine Blood Neg (Negative) 05/12/23 19:20 Urine Nitrate Negative (Negative) 05/12/23 19:20 Urine Bilirubin 1+ (Negative) H 05/12/23 19:20 Urine Urobilinogen Norm mg/dL (Negative) 05/12/23 19:20 Ur Leukocyte Esterase Negative (Negative) 05/12/23 19:20 All radiology interpretation(s) finalized by discharge Discharge Plan Discharge Patient Disposition: Admitted As Inpatient Admit Provider: Libby Anderson Clinical Impression: Acute kidney injury, Myocardial ischemia of anterolateral wall Condition: Stable Coding Level of Care Code ED Senior Field Service Engineer for Everton Sharpe
[2023-05-12 18:25] LABS: Basophils % 0.4 %; Eosinophils # 0.1 10^3/uL (0.0-0.8); Eosinophils % 0.6 %; Hematocrit 43.1 % (37-53); Lymphocytes # 1.5 10^3/uL (0.8-4.8); Lymphocytes % 19.8 %; Mean Corpuscular Hemoglobin 31.8 pg (27-33); Mean Corpuscular Volume 90.7 fl (82-101); Mean Platelet Volume 8.7 fL (7.4-10.4); Monocytes # 0.6 10^3/uL (0.2-0.9); Monocytes % 7.8 %; Neutrophils # 5.47 10^3/uL (1.8-7.7); Nucleated Red Blood Cells % 0 %; Platelet Count 254 10^3/cmm (157-399); Red Blood Count 4.75 10^6/uL (3.85-5.65); Red Cell Distribution Width 15.5 % (12.1-15.1); White Blood Count 7.71 10^3/uL (3.29-11.43)
[2023-05-12] MEDS: aspirin 81 mg Chew Tablet 324 MG PO (18:40)
[2023-05-12 18:43] LABS: Troponin(5th) Baseline 14 ng/L (0-15)
[2023-05-12 18:50] LABS: Alanine Aminotransferase 75 U/L (0-41); Albumin Level 4.7 g/dL (3.5-5.2); Alkaline Phosphatase 95 U/L (40-130); Anion Gap 17.9 (5-19); Aspartate Amino Transferase 45 U/L (0-40); Blood Urea Nitrogen 27 mg/dL (6-20); Calcium 10.1 mg/dL (8.5-10.5); Carbon Dioxide 25 mmol/L (22-29); Chloride 91 mmol/L (98-107); Globulin 2.7 g/dL (1.3-4.6); Glomerular Filtration Rate 19.7 mL/min (90-130); Glucose 88 mg/dL (65-115); Osmolality Calculated 275 mOsm/kg (285-295); Potassium 3.9 mmol/L (3.5-5.1); Sodium 130 mmol/L (136-145); Total Bilirubin 0.8 mg/dL (0.15-1.2); Total Protein 7.4 g/dL (6.6-8.7)
[2023-05-12 19:30] LABS: INR 0.96 (0.8-1.2)
[2023-05-12 19:31] LABS: Partial Thromboplastin Time 32.5 SECONDS (23.9-36.7)
[2023-05-12 19:36] LABS: Add Urine Microscopic? NO; Charge for UA Resulting for Rev
[2023-05-12] MEDS: sodium chloride 0.9% 1,000 ML 100 ML IV (19:36)
[2023-05-12 19:39] LABS: Blood Urine Neg (Negative); Glucose Urine UA Norm (Normal); Ketones Urine Negative (Negative); Protein Urine Neg (Negative); Specific Gravity, Urine 1.015 (1.005-1.030); Urine Appearance Clear (CLEAR); Urine Color Yellow (Yellow); pH Urine 5 (5-7)
[2023-05-12 19:40] LABS: Bilirubin Urine 1+ (Negative); Leukocyte Esterase Urine Negative (Negative); Nitrate Urine Negative (Negative); Urobilinogen Urine Norm (Negative)
--- NOTE | 2023-05-12 20:02 | ECG_ITS ---
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 Measurements Intervals [place] Rate: 77 P: 0 NM: 0 QRS: 5 QRSD: 98 T: 188 QT: 396 QTc: 449 Interpretive Statements SUPRAVENTRICULAR RHYTHM ST DEVIATION AND MODERATE T-WAVE ABNORMALITY, CONSIDER ANTEROLATERAL ISCHEMIA [-0.1+ mV T-WAVE IN V3-V6] ST DEVIATION AND MODERATE T-WAVE ABNORMALITY, CONSIDER INFERIOR ISCHEMIA [-0.1+ mV T-WAVE IN II/aVF] Compared to ECG 05/12/2023 17:55:48 Supraventricular rhythm now present Sinus rhythm no longer present T-wave abnormality still present Possible ischemia still present Electronically Signed On 05-13-2023 9:16:03 CDT by Alcon Paz M.D. [id number]
--- NOTE | 2023-05-12 20:38 | P.HP_ITS ---
Providers/Chief Complaint Admitting Physician: Libby Anderson MD Primary Care Provider: Jose Ewing DO Chief Complaint: chest pain History of Present Illness Silas Solares is a 53 year old male with history of hypertension active tobacco use alcohol use presented with complaint of substernal chest pain off and on since 3 weeks. He described pain as left-sided sometimes substernal 8 out of 10 squeezing nonradiating aggravated with exertion and relieved with rest. Chest pain is not associated with shortness of breath dizziness sweating or headache. Today he came to ER because the chest pain was radiating to the back and was severe. He denied any fever cold cough shortness of breath urinary or bowel complaints. Last coronary angiogram was done in 2005. He has been recently on aspirin 324 mg daily since right knee replacement 6 months ago. In ER he was found to have EKG changes with normal first set of troponins. Also found to have acute renal failure, baseline creatinine is 1.3. He denied any active chest pain during interview. Review of Systems Narrative: As per HPI Medications/Allergies Home Medications Medication Instructions Recorded Confirmed Last Taken Type amlodipine 10 mg tablet 10 mg PO DAILY #90 tabs 01/02/23 05/12/23 05/12/23 08:00 Rx losartan 100 mg tablet 100 mg PO DAILY #90 tabs 04/01/23 05/12/23 05/12/23 08:00 Rx metoprolol succinate 50 mg 50 mg PO DAILY #90 tabs 04/01/23 05/12/23 05/12/23 08:00 Rx tablet,extended release 24 hr varenicline 1 mg tablet 1 mg PO BID #56 tabs 04/03/23 05/12/23 05/12/23 Rx aspirin 325 mg tablet 325 mg PO DAILY 05/12/23 05/12/23 05/12/23 08:00 History Allergies Allergy/AdvReac Type Severity Reaction Status Date / Time morphine Allergy ADR-Itching Verified 04/17/23 13:52 PFSH Acute PFSH: Medical History Abnormal heart rhythm Atrial fibrillation, around 30 years of age, cardioversion, after alcohol intake Essential hypertension Surgical History H/O knee surgery H/O shoulder replacement H/O wrist surgery Family History Other CAD (coronary artery disease) Social History Smoking and tobacco status: former smoker Quit status (tobacco): has quit using tobacco Former quit date comment: 09/2022 Second hand smoke exposure: No Smoking risk assessment/counseling performed?: No Alcohol intake: current Alcohol intake frequency: holidays/special occasions only Alcohol type: beer Desire information about alcohol rehabilitation?: No Counseling given: No Substance/Drug Use: never Desire information about substance/drug rehabilitation?: No Counseling given: No Adopted: No Caregiver/support person: No Lives independently: Yes Marital status: Single Number of children: 1 service: No Current occupational status: employed 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 Current occupational exposures/hazards: Yes Pets and animals: No Do you think of yourself as: Straight/Heterosexual Current gender identity: Male Vitals/I&O/Wt Last Vital Signs Temp 97.6 F 05/12/23 17:58 Pulse 79 05/12/23 17:58 Resp 17 05/12/23 17:58 BP 129/89 05/12/23 17:58 Pulse Ox 100 05/12/23 17:58 O2 Del Method Room Air 05/12/23 17:58 Weight last 48 hrs Weight 99.79 kg Physical Exam Narrative: He is alert awake oriented x3 not in acute distress Chest clear to auscultation bilaterally Cardiovascular normal heart sounds no murmurs Abdomen soft nontender nondistended normal bowel sounds Extremities no significant pedal edema seen Data 05/12/23 18:12 05/12/23 18:12 CXR: Radiologist's impression: No acute findings EKG 1: My Interpretation: Normal sinus rhythm normal axis diffuse T wave inversions, no acute ST-T changes as compared to EKG for 11/24, no significant changes noted A&P Assessment and plan (1) Chest pain: (2) Acute kidney injury: Plan 53-year-old male with history of hypertension active tobacco user presented with complaint of exertional substernal chest pain relieved with rest since 3 weeks and found to have acute renal failure. Chest pain likely secondary to acute coronary syndrome Will follow-up second set of troponins Serial EKGs Check 2D echo in a.m. Cardiology consult if troponins trending up. Acute renal failure likely secondary to dehydration Recheck BUN and creatinine in a.m. Continue IV fluids normal saline at 75 mL/h Cardiac diet IV Pepcid 20 mg every 12 hours for stress ulcer prophylaxis Subcutaneous Lovenox 40 mg daily for DVT prophylaxis He is full code for now Attestations Medical Necessity Statement*: Needs to be admitted for more than 2 midnights for cardiac work-up and IV fluids for acute renal failure. Time Spent in Patient Care: 30 minutes Coding Level of Care Code Acute Code for [facility] Fwd Diagnoses Chest pain R07.9 Acute kidney injury N17.9 Time Spent (min) 30
[2023-05-12 20:49] VITALS: BP 129/95; PULSE 70; RESP 20; TEMP 36.6; O2SAT 95
[2023-05-12 21:00] VITALS: PULSE 71
[2023-05-12] MEDS: sodium chloride 0.9% 1,000 ML 75 ML IV (21:08)
[2023-05-12] MEDS: famotidine 20 mg/2 mL INJ IVP (21:09)
[2023-05-12] MEDS: enoxaparin 40 mg/0.4 mL Syringe SUBCUT (21:09)
[2023-05-12 23:38] VITALS: BP 119/80; PULSE 77; RESP 24; TEMP 36.6; O2SAT 93
[2023-05-13] VITALS (7 sets, daily range): BP systolic 116–121; BP diastolic 72–97; PULSE 66–95; RESP 17–21; TEMP 36.1–36.7; O2SAT 93–96
--- NOTE | 2023-05-13 00:02 | ECG_ITS ---
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 Measurements Intervals [place] Rate: 77 P: 53 FL: 170 QRS: 12 QRSD: 89 T: 78 QT: 388 QTc: 439 Interpretive Statements SINUS RHYTHM ST DEVIATION AND MODERATE T-WAVE ABNORMALITY, CONSIDER ANTEROLATERAL ISCHEMIA [-0.1+ mV T-WAVE IN V3-V6] Compared to ECG 05/12/2023 22:12:37 Supraventricular rhythm no longer present T-wave abnormality still present Possible ischemia still present Electronically Signed On 05-13-2023 9:15:51 CDT by Alcon Paz M.D. [email or web address].[email or web address]/store/[id number]
[2023-05-13 01:48] LABS: Basophils % 0.5 %; Eosinophils # 0.1 10^3/uL (0.0-0.8); Eosinophils % 1.8 %; Hematocrit 39.4 % (37-53); Lymphocytes # 1.9 10^3/uL (0.8-4.8); Lymphocytes % 35.1 %; Mean Corpuscular HGB Conc 34.8 g/dL (30-55); Mean Corpuscular Hemoglobin 31.6 pg (27-33); Mean Corpuscular Volume 90.8 fl (82-101); Mean Platelet Volume 8.7 fL (7.4-10.4); Monocytes # 0.5 10^3/uL (0.2-0.9); Monocytes % 8.4 %; Neutrophils # 2.93 10^3/uL (1.8-7.7); Neutrophils % 53.7 %; Nucleated Red Blood Cells % 0 %; Platelet Count 195 10^3/cmm (157-399); Red Blood Count 4.34 10^6/uL (3.85-5.65); Red Cell Distribution Width 15.3 % (12.1-15.1); White Blood Count 5.47 10^3/uL (3.29-11.43)
[2023-05-13 02:05] LABS: Chol HDL Ratio 5.42 mg/dL (1.0-5.00); Cholesterol 287 mg/dL (0-200); HDL Cholesterol 53 mg/dL (60-100); LDL Cholesterol Calculated 177 mg/dL (50-129); LDL HDL Ratio 3.34 RATIO (0.00-3.22); Triglycerides 283 mg/dL (0-150)
[2023-05-13 02:06] LABS: Alanine Aminotransferase 63 U/L (0-41); Albumin Level 4.2 g/dL (3.5-5.2); Alkaline Phosphatase 83 U/L (40-130); Anion Gap 18.6 (5-19); Aspartate Amino Transferase 37 U/L (0-40); Blood Urea Nitrogen 28 mg/dL (6-20); Calcium 9.3 mg/dL (8.5-10.5); Carbon Dioxide 20 mmol/L (22-29); Chloride 100 mmol/L (98-107); Globulin 2.6 g/dL (1.3-4.6); Glomerular Filtration Rate 23.8 mL/min (90-130); Glucose 91 mg/dL (65-115); Osmolality Calculated 285 mOsm/kg (285-295); Phosphorus 4.5 mg/dL (2.5-4.5); Potassium 3.6 mmol/L (3.5-5.1); Sodium 135 mmol/L (136-145); Total Bilirubin 0.5 mg/dL (0.15-1.2); Total Protein 6.8 g/dL (6.6-8.7)
[2023-05-13 02:26] LABS: Troponin 5 6HR 10.58 ng/L (0-15); Troponin 5 6HR Delta -3.42 ng/L (0-12)
[2023-05-13] MEDS: metoprolol succinate ER (24 HR) 50 mg Tablet PO (09:01)
[2023-05-13] MEDS: amlodipine 10 mg Tablet PO (09:01)
[2023-05-13] MEDS: famotidine 20 mg/2 mL INJ IVP ×2 (09:01→21:13)
--- NOTE | 2023-05-13 09:49 | PC.CHAP ---
Pastoral Care Encounter/Spiritual Assessment Type of Contact [] Declined sight mounter visit [] Patient/Family/Request visit [] Outpatient visit [] Follow-up visit [] Physician referral [] Code/Alert [x] Routine visit [] Staff referral [] Actively dying [] Patient sleeping [x] Family support [] [] Out of room [] Palliative care [] [] Receiving care in room [] Pre-surgical visit [] Trauma [] Long length of stay [] ICU visit [] Other: Relational/Emotional Strength [x] Patient feels connected with others/family/visitors/staff [] Distress [] Loneliness/isolation [] Abandonment Spirituality of Patient [x] Person of Laure [] Attends Oriental Orthodox of their Laure [x] Believes in Prayer [] Reads Bible or Amish materials [] There are Spiritual issues to be addressed Powersaw Supervisor Interventions [x] Prayer [x] Active listening [] Non-anxious presence [x] Spiritual/emotional support [] Crisis/trauma care [] Spiritual counseling [] Bereavement support [] Provided bereavement packet [] Provided Bible/devotional materials [] Provided toy/stuffed animal, coloring book to patient or family member [] Provided Communion [] Anointing/[place] [] Salvation [x] Completed spiritual assessment [] Other: Impact on Illness or Injury [] Angry [] Fearful [] Anxious [] Often cries [] Exhaustion [] Unable to work [] Unable to attend gnosticism [] Unable to walk/stand [] Unable to read [] Unable to drive [] Unable to eat/drink [] Unable to sleep [] Unable to be with family [] Patient intubated [] Other: Summary Time spent with patient 5 min
[2023-05-13 13:09] LABS: D Dimer 0.31 ug/mLFEU (0-0.59)
--- NOTE | 2023-05-13 17:48 | USCV_ITS ---
Beck Silas Age: 53 Gender: M : 1970 Exam Date: 05/13/2023 18:59 Ordering Phys: Jignesh Coffey MD Technologist: ALEX Exam Location: [facility] – [place] Indication: intermittent CP x 3 weeks, GALLEGOS, HTN, HL, tobaccoism. No history of cardiac intervention per patient. BP: 116 / 72 HR: 67 Rhythm: Sinus Technical Quality: Adequate MEASUREMENTS (Male / Female) Normal Values 2D ECHO LV Diastolic Diameter PLAX 4.5 cm 4.2 - 5.9 / 3.9 - 5.3 cm LV Systolic Diameter PLAX 3.0 cm IVS Diastolic Thickness 2.0 cm 0.6 - 1.0 / 0.6 - 0.9 cm IVS Systolic Thickness 2.4 cm LVPW Diastolic Thickness 1.5 cm 0.6 - 1.0 / 0.6 - 0.9 cm LVPW Systolic Thickness 1.8 cm LVOT Diameter 2.0 cm LV Ejection Fraction 2D Teich 62.8 % LV Ejection Fraction MOD 2C 73.2 % LV Ejection Fraction 2C AL 73.0 % LA Diameter 4.1 cm LA Width 4.0 cm LA Height 5.4 cm RA Width 3.5 cm RA Height 4.1 cm Aorta at Sinotubular Diameter 2.9 cm IVC Diameter 2.3 cm M-MODE Aortic Annulus Diameter 3.6 cm LA Ao Ratio MM 1.1 MV E Point Septal Separation 0.5 cm DOPPLER AV Peak Velocity 120.0 cm/s LVOT Peak Velocity 104.0 cm/s AV Area Cont Eq vti 2.8 cm squared AV Area Cont Eq pk 2.6 cm squared MV Peak Velocity 72.0 cm/s MV Area PHT 3.5 cm squared Mitral E to A Ratio 0.9 MV E' Velocity 38.0 cm/s Mitral E to MV E' Ratio 6.9 Mitral E to LV E' Lateral Ratio 5.3 Mitral E to LV E' Septal Ratio 10.1 TV Peak E Velocity 32.0 cm/s PV Peak Velocity 105.0 cm/s RV Acceleration Time 0.1 s RV Ejection Time 0.4 s RV AcT/ET 0.3 FINDINGS Left Ventricle Normal left ventricular size, systolic function and wall thickness, with no regional wall motion abnormalities. Grade I/IV diastolic dysfunction (abnormal relaxation filling pattern), normal to mildly elevated filling pressures. Left ventricular ejection fraction is estimated at 55 %. Right Ventricle Normal right ventricular size and systolic function. Normal right ventricular systolic pressure. Right Atrium The right atrium is normal in size. Left Atrium The left atrium is normal in size. Mitral Valve Structurally normal mitral valve. Trace mitral valve regurgitation. Aortic Valve Structurally normal aortic valve without significant sclerosis or stenosis. There is no aortic regurgitation. Tricuspid Valve Structurally normal tricuspid valve. Trace tricuspid valve regurgitation. Pulmonic Valve Pulmonic valve not well visualized. Trace pulmonary valve regurgitation. Pericardium Normal pericardium without effusion. Aorta Mild aortic dilatation of the aortic arch. IVC The inferior vena cava appears normal. CONCLUSIONS Normal left ventricular size, systolic function and wall thickness, with no regional wall motion abnormalities. Grade I/IV diastolic dysfunction (abnormal relaxation filling pattern), normal to mildly elevated filling pressures. Left ventricular ejection fraction is estimated at 55 %. Structurally normal mitral valve. Trace mitral valve regurgitation. Mild aortic dilatation of the aortic arch. There are no prior echocardiogram studies to compare. Dr. Macario Reynolds MD (Electronically Signed) Final Date: 14 May 2023 08:28 S
--- NOTE | 2023-05-13 19:28 | PM.PN ---
Subjective Subjective: Chest pain has resolved. No radiation to the back. Minimal chest discomfort in central lower chest. Not triggered by inspiration. Not reproducible by palpation. States barely present. Vitals/I&O/Wt Last Vital Signs Temp 98.0 F 05/13/23 04:00 Pulse 69 05/13/23 16:20 Resp 21 H 05/13/23 16:20 BP 116/72 05/13/23 08:42 Pulse Ox 96 05/13/23 16:20 O2 Del Method Room Air 05/13/23 04:00 05/13/23 05/13/23 05/13/23 06:59 14:59 22:59 Intake Total 1463.75 / 1463.75 Output Total 600 / 600 1500 / 1500 Balance -600 / -437.083 -36.25 / -36.25 Weight last 48 hrs Weight 99.79 kg Physical Exam Narrative: Accompanied by family. Const: COMMON NORMALS: patient oriented x3 and alert GENERAL APPEARANCE: cooperative ORIENTATION/CONSCIOUSNESS: Yes awake HENMT: COMMON NORMALS: oropharynx normal Neck/C-Spine: COMMON NORMALS: no JVD Resp: COMMON NORMALS: normal respiratory effort and clear to auscultation bilaterally AUSCULTATION: clear to auscultation bilaterally Cardio: COMMON NORMALS: no JVD, regular rhythm, S1 normal heart sound present, S2 normal heart sound present and No murmurs present (Cardio) RHYTHM: regular rhythm HEART SOUNDS: S1 normal heart sound present and S2 normal heart sound present GI: COMMON NORMALS: Normal to inspection, nondistended, normoactive bowel sounds present, Soft to palpation and non-tender PALPATION: Yes Soft to palpation Extremity: COMMON NORMALS: no joint enlargement and no pedal edema Neuro: COMMON NORMALS: patient oriented x3 and moves all extremities SENSORIUM/ORIENTATION: Yes alert Skin: COMMON NORMALS: no rashes or lesions noted GENERAL SKIN EXAM: no rashes or lesions noted Data 05/13/23 01:39 05/13/23 01:39 A&P Assessment and plan (1) Chest pain: (2) Acute kidney injury: Plan 53-year-old male with history of hypertension active tobacco user presented with complaint of exertional substernal chest pain relieved with rest since 3 weeks and found to have acute renal failure. With cardiovascular risk factors. Echocardiogram has been requested, not yet performed. Requested complete echo. Discussed alternative possible causes, however, pain has subsided and nearly resolved, no radiation to the back, less likely dissection, initially considered additional assessment with CT angiogram chest to also exclude PE, however, noted acute kidney injury, CT canceled. Obtain D-dimer, not elevated. Low likelihood of PE. Reviewed troponin trend, discussed with him and family, not elevated. Does have some ST depressions, T wave inversions laterally. Also per discussion did have angiogram back in 2006, remembers anatomic abnormality, discussed consideration of myocardial bridge, review of the study reveals did not fact have myocardial bridge over distal LAD with 60-70% occlusion with systole. Discussed with cardiology. Okay to proceed to stress test. With possibility of underlying pulmonary condition for which may benefit from pulmonary function test down the road this time will obtain chemical stress test with nuclear scan in lieu of of exercise stress testing. Monitor on telemetry for risk of arrhythmia. Monitor symptoms. Resume aspirin. Continue statin. Acute renal failure: Does take ibuprofen at home. Discussed to stop and avoid NSAIDs. Received fluid challenge. Hold losartan. Some improvement in creatinine on review of renal function, BUN 28, reviewed, creatinine shows 2.8. Anticipate may continue to improve. Reassess kidney function, electrolytes, anion gap, We will stop additional IV fluids. Hypertension: Continue amlodipine, metoprolol. Monitor blood pressures. Attestations Medical Necessity Statement*: Continue admission for assessment management of chest pain in gentleman with cardiovascular risk factors. Diagnoses Chest pain R07.9 Acute kidney injury N17.9
[2023-05-13] MEDS: atorvastatin 40 mg Tablet 20 MG PO (21:13)
[2023-05-13] MEDS: aspirin 325 mg Tablet PO (21:13)
[2023-05-13] MEDS: diphenhydrAMINE 25 mg Capsule PO (21:13)
[2023-05-13] MEDS: enoxaparin 40 mg/0.4 mL Syringe SUBCUT (21:13)
[2023-05-14] VITALS (8 sets, daily range): BP systolic 116–135; BP diastolic 80–97; PULSE 71–93; RESP 18–20; TEMP 36.7–37.2; O2SAT 92–98
--- NOTE | 2023-05-14 | ECG_ITS ---
[facility] Test Date: 2023-05-14 Pat Name: Silas Solares Department: Room: 105 Gender: Male Cloth Weaver: Zoran Rocael : 1970 Requested By: Jignesh Coffey Order Number: [id number] Deniz MD: Alcon Paz M.D. Interpretive Statements NAME OF STUDY: LEXISCAN SESTAMIBI STRESS TEST INDICATION: [Chest Pain, ] Procedure: At the baseline, the blood pressure was 131/90 mmHg with a heart rate of 76 bpm. The electrocardiogram showed normal sinus rhythm, normal axis with non specific ST T wave changes The Lexiscan was infused over a period of 20 seconds. A total of 0.4 mg of Lexiscan was infused. The stress phase was continued for a total of 5 minutes. Heart rate was at the end of stress phase was 88 bpm and a blood pressure of 117/74 mmHg. The EKG at the peak infusion revealed normal sinus rhythm with no significant ST-T wave changes. Sestamibi was injected 20 seconds after the Lexiscan infusion. Blood pressure at the end of recovery phase was 123/91 mmHg with a heart rate of 91 bpm. Conclusion: 1. Normal EKG response to Lexiscan infusion 2. No Lexiscan induced chest pain or cardiac arrhythmia. 3. Normal blood pressure and heart rate response. 4. Sestamibi/sestamibi perfusion scan pending; see separate report. Electronically Signed On 05-29-2023 12:20:53 CDT by Alcon Paz M.D. [email or web address]
--- NOTE | 2023-05-14 00:10 | PC.NURSE ---
This RN agrees with all documentation, assessments and medication administrations by SN Lloyd.
[2023-05-14] MEDS: regadenoson 0.4 Mg/5 ml Syringe IVP (07:11)
[2023-05-14] MEDS: famotidine 20 mg/2 mL INJ IVP ×2 (08:37→20:55)
[2023-05-14] MEDS: amlodipine 10 mg Tablet PO (08:37)
[2023-05-14] MEDS: metoprolol succinate ER (24 HR) 50 mg Tablet PO (08:37)
[2023-05-14] MEDS: nitroglycerin 0.4 mg sublingual Tablet SUBLINGUAL (08:57)
[2023-05-14 09:02] LABS: Basophils % 0.6 %; Eosinophils # 0.1 10^3/uL (0.0-0.8); Eosinophils % 2.4 %; Hematocrit 42.1 % (37-53); Lymphocytes # 1.3 10^3/uL (0.8-4.8); Lymphocytes % 23.9 %; Mean Corpuscular HGB Conc 34.4 g/dL (30-55); Mean Corpuscular Hemoglobin 31.5 pg (27-33); Mean Corpuscular Volume 91.5 fl (82-101); Mean Platelet Volume 8.7 fL (7.4-10.4); Monocytes # 0.3 10^3/uL (0.2-0.9); Monocytes % 5.1 %; Neutrophils # 3.58 10^3/uL (1.8-7.7); Neutrophils % 67.2 %; Nucleated Red Blood Cells % 0 %; Platelet Count 209 10^3/cmm (157-399); Red Cell Distribution Width 15.6 % (12.1-15.1); White Blood Count 5.32 10^3/uL (3.29-11.43)
--- NOTE | 2023-05-14 09:05 | PC.NURSE ---
Nitro sublingual given once for mild chest pain. Rechecked 5 min later. Patient reported pain level less than 1.
[2023-05-14 09:23] LABS: Anion Gap 17.4 (5-19); Blood Urea Nitrogen 18 mg/dL (6-20); Calcium 9.1 mg/dL (8.5-10.5); Carbon Dioxide 20 mmol/L (22-29); Chloride 100 mmol/L (98-107); Glucose 165 mg/dL (65-115); Osmolality Calculated 284 mOsm/kg (285-295); Potassium 3.4 mmol/L (3.5-5.1); Sodium 134 mmol/L (136-145)
--- NOTE | 2023-05-14 10:51 | PC.NURSE ---
Patient took his home Chantix due to this medication not being available in the hospital.
--- NOTE | 2023-05-14 11:03 | PC.CHAP ---
Pastoral Care Encounter/Spiritual Assessment Type of Contact [] Declined diesel engineer visit [] Patient/Family/Request visit [] Outpatient visit [] Follow-up visit [] Physician referral [] Code/Alert [x] Routine visit [] Staff referral [] Actively dying [] Patient sleeping [] Family support [] [] Out of room [] Palliative care [] [] Receiving care in room [] Pre-surgical visit [] Trauma [] Long length of stay [] ICU visit [] Other: Relational/Emotional Strength [x] Patient feels connected with others/family/visitors/staff [] Distress [] Loneliness/isolation [] Abandonment Spirituality of Patient [] Person of Laure [] Attends Religious of their Laure [] Believes in Prayer [] Reads Bible or Anabaptist materials [] There are Spiritual issues to be addressed Veterinary Laboratory Technician Interventions [] Prayer [] Active listening [] Non-anxious presence [] Spiritual/emotional support [] Crisis/trauma care [] Spiritual counseling [] Bereavement support [] Provided bereavement packet [] Provided Bible/devotional materials [] Provided toy/stuffed animal, coloring book to patient or family member [] Provided Communion [] Anointing/[place] [] Salvation [] Completed spiritual assessment [] Other: Impact on Illness or Injury [] Angry [] Fearful [] Anxious [] Often cries [] Exhaustion [] Unable to work [] Unable to attend yarsani [] Unable to walk/stand [] Unable to read [] Unable to drive [] Unable to eat/drink [] Unable to sleep [] Unable to be with family [] Patient intubated [] Other: Summary Time spent with patient 10 min
--- NOTE | 2023-05-14 13:28 | P.CONIM_ITS ---
Providers/Reason For Consult Consulting Physician/Specialty*: ANNETTE Leal MD/cardiology Reason for Consult*: Patient with chest pain Requesting Physician: Dr. Coffey Attending Physician: Jignesh Coffey Primary Care Provider: Jose Ewing DO History of Present Illness History of Present Illness Silas Solares is a 53 year old male with a history of essential benign hypertension, dyslipidemia and tobacco abuse, is presenting with complaints of chest pain, shortness of breath and easy fatigability for the last more than a month. According the patient, he has been having chest pain off and on for the last more than 50 years. 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 No significant blockages were noted at that time. Even though he has been having episodes of chest pain off and on, the symptoms were never severe enough to go to the hospital. For the last almost a month, he been experiencing chest pains/tightness with activities. 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 He describes as a pressure-like/sharp pain on the left side of the chest, radiating to the back, sometimes to the neck and also to the left shoulder. He has some associated shortness of breath and sweating. He also may get some palpitations. No other associated symptoms or radiation. The intensity of the pain is up to 8/10. He may have these episodes several times a day. Each of these may last for 3 to 5 minutes then gradually goes away with rest. According the patient, the symptoms are limiting his activities. His functional status seems to be declining. Myocardial infarction was ruled out. He had a Myocardial perfusion imaging which was essentially unremarkable. However following the stress test, he started having similar type of pain. He had 2 episodes of chest pain since coming back to his room This patient's father had a PCI in his 50s. He had a coronary artery bypass surgery in his 60s. Maternal grandmother had a congestive heart failure. He chews tobacco. No smoking abuse or any alcohol abuse. Review of Systems Narrative: CONSTITUTIONAL: No fever or chills. [] EYES: No blurring of vision or other visual disturbances lately. [] ENT: No hoarseness of voice, auditory disturbances or sore throat. [] CARDIOVASCULAR: As mentioned above. [] RESPIRATORY: Has some amount of dyspnea on exertion] GASTROINTESTINAL: No hematemesis or melena. [] GENITOURINARY: No dysuria or hematuria. [] INTEGUMENTARY: No skin rashes or history of skin cancer. [] NEURO: No transient ischemic attacks or amaurosis. [] PSYCHIATRIC: No history of psychosis or major depression. [] HEMATOLOGIC: No bleeding disorders or significant anemia. [] ENDOCRINE: No history of polyuria or polydipsia. [] MUSCULOSKELETAL: No recent joint pain or swelling. [] ALLERGY/IMMUNOLOGY: As mentioned above. [] Medications/Allergies Home Medications Medication Instructions Recorded Confirmed Last Taken Type amlodipine 10 mg tablet 10 mg PO DAILY #90 tabs 01/02/23 05/12/23 05/12/23 08:00 Rx losartan 100 mg tablet 100 mg PO DAILY #90 tabs 04/01/23 05/12/23 05/12/23 08:00 Rx metoprolol succinate 50 mg 50 mg PO DAILY #90 tabs 04/01/23 05/12/23 05/12/23 08:00 Rx tablet,extended release 24 hr varenicline 1 mg tablet 1 mg PO BID #56 tabs 04/03/23 05/12/23 05/12/23 Rx aspirin 325 mg tablet 325 mg PO DAILY 05/12/23 05/12/23 05/12/23 08:00 History Allergies Allergy/AdvReac Type Severity Reaction Status Date / Time morphine Allergy ADR-Itching Verified 04/17/23 13:52 Current Medications Generic Name Dose Route Start Last Admin Trade Name Freq PRN Reason Stop Dose Admin Amlodipine Besylate 10 mg 05/13/23 09:00 05/14/23 08:37 Amlodipine 10 Mg Tablet PO 10 mg DAILY SARAHI Administration Aspirin 325 mg 05/13/23 19:40 05/13/23 21:13 Aspirin 325 Mg Tablet PO 325 mg DAILY@1800 SARAHI Administration Atorvastatin Calcium 20 mg 05/13/23 21:00 05/13/23 21:13 Atorvastatin 40 Mg Tablet PO 20 mg BEDTIME SARAHI Administration Enoxaparin Sodium 40 mg 05/12/23 20:30 05/13/23 21:13 Enoxaparin 40 Mg/0.4 Ml Syringe SUBCUT 40 mg Q24H SARAHI Administration Famotidine 20 mg 05/12/23 20:30 05/14/23 08:37 Famotidine 20 Mg/2 Ml Inj IVP 20 mg Q12H SARAHI Administration Metoprolol Succinate 50 mg 05/13/23 09:00 05/14/23 08:37 Metoprolol Succinate Er (24 Hr) 50 Mg Tablet PO 50 mg DAILY SARAHI Administration Nitroglycerin 0.4 mg 05/14/23 06:14 05/14/23 08:57 Nitroglycerin 0.4 Mg Sublingual Tablet SUBLINGUAL 05/15/23 06:13 0.4 mg Q5M PRN Administration CHEST PAIN Non-Formulary Medication 1 mg 05/13/23 09:00 05/14/23 09:00 Varenicline PO Not Given BID SARAHI PFSH Acute PFSH: Medical History Abnormal heart rhythm Atrial fibrillation, around 30 years of age, cardioversion, after alcohol intake Essential hypertension Surgical History H/O knee surgery H/O shoulder replacement H/O wrist surgery Family History Other CAD (coronary artery disease) Social History Smoking and tobacco/nicotine status: former use of tobacco/nicotine Quit status (tobacco/nicotine): has quit using Former quit date comment: 09/2022 Second hand smoke exposure: No Alcohol intake: current Alcohol intake frequency: holidays/special occasions only Alcohol type: beer Substance/Drug Use: never Adopted: No Caregiver/support person: No Lives independently: Yes Marital status: Single Number of children: 1 service: No Current occupational status: employed 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 Not in any acute distress. [] HEENT: No significant pallor, icterus or lymphadenopathy.Oral cavity: There are no mucous membrane lesions. NECK: Trachea appears to be central. No masses noted. No JVD or thyromegaly appreciated. RESPIRATORY: Chest is symmetrical. No intercostals muscle retraction or any accessory muscle activation. There is no chest wall tenderness. Breath sounds are heard bilaterally. No rales or rhonchi heard. No evidence of any consolidation. [] BREASTS: Deferred. HEART: The heart sounds are normal. No S3 or S4. No significant murmurs. No pericardial rub ABDOMEN: No vessel pulsations or distention. No tenderness. No organomegaly appreciated. Bowel sounds are normally heard. : Deferred. RECTAL: Deferred. LYMPHATIC: No lymphadenopathy noted in the neck. EXTREMITIES: No edema or cyanosis. No clubbing. MUSCULOSKELETAL: No acute joint deformities or swelling SKIN: There are no significant rashes or ecchymosis.Multiple tattoo nelson in the upper extremities NEUROPSYCHIATRIC: The patient is alert and oriented x3. Appears to be in a good mood. No tremors or rigidity noted. Data 05/14/23 08:48 05/14/23 08:48 Other Labs: Laboratory Last Values WBC 5.32 10^3/uL (3.29-11.43) 05/14/23 08:48 RBC 4.60 10^6/uL (3.85-5.65) 05/14/23 08:48 Hgb 14.50 g/dL (11.27-16.99) 05/14/23 08:48 Hct 42.1 % (37-53) 05/14/23 08:48 MCV 91.5 fl (82-101) 05/14/23 08:48 MCH 31.5 pg (27-33) 05/14/23 08:48 MCHC 34.4 g/dL (30-55) 05/14/23 08:48 RDW 15.6 % (12.1-15.1) H 05/14/23 08:48 Plt Count 209 10^3/cmm (157-399) 05/14/23 08:48 MPV 8.7 fL (7.4-10.4) 05/14/23 08:48 Neut % (Auto) 67.2 % 05/14/23 08:48 Lymph % (Auto) 23.9 % 05/14/23 08:48 [place] % (Auto) 5.1 % 05/14/23 08:48 Eos % (Auto) 2.4 % 05/14/23 08:48 Baso % (Auto) 0.6 % 05/14/23 08:48 Neut # (Auto) 3.58 10^3/uL (1.8-7.7) 05/14/23 08:48 Lymph # (Auto) 1.3 10^3/uL (0.8-4.8) 05/14/23 08:48 [place] # (Auto) 0.3 10^3/uL (0.2-0.9) 05/14/23 08:48 Eos # (Auto) 0.1 10^3/uL (0.0-0.8) 05/14/23 08:48 Baso # (Auto) 0.0 10^3/uL (0.0-0.1) 05/14/23 08:48 Nucleated RBC % (auto) 0 % 05/14/23 08:48 Nucleated RBCs # 0.0 /100WBC 05/14/23 08:48 PT 13.00 SECONDS (12.1-14.9) 05/12/23 18:12 INR 0.96 (0.8-1.2) 05/12/23 18:12 APTT 32.5 SECONDS (23.9-36.7) 05/12/23 18:12 D-Dimer 0.31 ug/mLFEU (0-0.59) 05/13/23 12:28 Sodium 134 mmol/L (136-145) L 05/14/23 08:48 Potassium 3.4 mmol/L (3.5-5.1) L 05/14/23 08:48 Chloride 100 mmol/L (98-107) 05/14/23 08:48 Carbon Dioxide 20 mmol/L (22-29) L 05/14/23 08:48 Anion Gap 17.4 (5-19) 05/14/23 08:48 BUN 18 mg/dL (6-20) 05/14/23 08:48 Creatinine 1.4 mg/dL (0.7-1.2) H 05/14/23 08:48 GFR Calculation 53.0 mL/min (90-130) L 05/14/23 08:48 Glucose 165 mg/dL (65-115) H 05/14/23 08:48 Calculated Osmolality 284 mOsm/kg (285-295) L 05/14/23 08:48 Calcium 9.1 mg/dL (8.5-10.5) 05/14/23 08:48 Phosphorus 4.5 mg/dL (2.5-4.5) 05/13/23 01:39 Magnesium 2.0 mg/dL (1.7-2.3) 05/13/23 01:39 Total Bilirubin 0.5 mg/dL (0.15-1.2) 05/13/23 01:39 AST 37 U/L (0-40) 05/13/23 01:39 ALT 63 U/L (0-41) H 05/13/23 01:39 Alkaline Phosphatase 83 U/L (40-130) 05/13/23 01:39 Troponin T Baseline 14 ng/L (0-15) 05/12/23 18:12 Troponin T 120 Minute 11.30 ng/L (0-15) 05/12/23 20:16 Delta Troponin T -2.70 ABS# (0-10) L 05/12/23 20:16 Troponin T Hi Sens 6Hr 10.58 ng/L (0-15) 05/13/23 01:39 Troponin T Hi Sens 6Hr Delta -3.42 ng/L (0-12) L 05/13/23 01:39 Total Protein 6.8 g/dL (6.6-8.7) 05/13/23 01:39 Albumin 4.2 g/dL (3.5-5.2) 05/13/23 01:39 Globulin 2.6 g/dL (1.3-4.6) 05/13/23 01:39 Triglycerides 283 mg/dL (0-150) H 05/13/23 01:39 Cholesterol 287 mg/dL (0-200) H 05/13/23 01:39 LDL Cholesterol, Calc 177 mg/dL (50-129) H 05/13/23 01:39 HDL Cholesterol 53 mg/dL (60-100) L 05/13/23 01:39 LDL/HDL Ratio 3.34 RATIO (0.00-3.22) H 05/13/23 01:39 Cholesterol/HDL Ratio 5.42 mg/dL (1.0-5.00) H 05/13/23 01:39 Urine Color Yellow (Yellow) 05/12/23 19:20 Urine Appearance Clear (CLEAR) 05/12/23 19:20 Urine pH 5 (5-7) 05/12/23 19:20 Ur Specific [place] 1.015 (1.005-1.030) 05/12/23 19:20 Urine Protein Neg (Negative) 05/12/23 19:20 Urine Glucose (UA) Norm (Normal) 05/12/23 19:20 Urine Ketones Negative (Negative) 05/12/23 19:20 Urine Blood Neg (Negative) 05/12/23 19:20 Urine Nitrate Negative (Negative) 05/12/23 19:20 Urine Bilirubin 1+ (Negative) H 05/12/23 19:20 Urine Urobilinogen Norm mg/dL (Negative) 05/12/23 19:20 Ur Leukocyte Esterase Negative (Negative) 05/12/23 19:20 Other data: The EKG showed a sinus rhythm with T inversions in the anterolateral leads. Nonspecific T wave changes in the inferior leads. Normal SD and QRS duration. Echocardiogram on 05/13/2023 normal left ventricular size, systolic function and wall ?thickness, with no regional wall motion abnormalities. Grade ?I/IV diastolic dysfunction (abnormal relaxation filling ?pattern), normal to mildly elevated filling pressures. Left ?ventricular ejection fraction is estimated at 55 %. ?Structurally normal mitral valve. Trace mitral valve ?regurgitation. ?Mild aortic dilatation of the aortic arch. ?There are no prior echocardiogram studies to compare. Myocardial perfusion imaging 1. Normal myocardial perfusion imaging with no evidence of ischemia ?2. LV systolic function is normal A&P Assessment and plan (1) Chest pain: Patient has worsening chest pain and significant limitation of his activities. His EKG is a history of anterolateral wall ischemia. The echocardiogram was u nremarkable. Myocardial perfusion imaging also was unremarkable. However in view of his ongoing symptoms, risk factors and abnormal EKG, in order to further evaluate his coronary status, a cardiac catheterization would be appropriate. The option of trying medical treatment also was discussed. The patient is very concerned about his symptoms and he would like to know for sure whether he has any blockages in the arteries or not. Because of his functional limitations, patient is wanting to go ahead with the angiogram. The risk of bleeding, hematoma, vascular injury, myocardial infarction, myocardial perforation, malignant cardiac arrhythmias ,CVA, renal failure and other concomitant compl ications were explained in detail. Patient understood this well and consented to proceed. We may go ahead and do schedule the procedure as early as possible (2) Abnormal EKG: Suggestive of anterolateral wall ischemia. Based on the angiogram findings, further recommendations will be made. Patient may continue on the current medications for the time being. (3) Hyperlipidemia: May continue on the current management. Qualifiers: Hyperlipidemia type: unspecified Qualified Code(s): E78.5 - Hyperlipidemia, unspecified (4) Essential hypertension: Currently the blood pressure is fairly under control. May continue on the current medications. Plan Based on the results of the above tests and patient's clinical progress, further recommendations will be made. Thank you for the opportunity to evaluate this patient and make these recommendations Coding Level of Care Code 56956 Diagnoses Chest pain R07.9 Abnormal EKG R94.31 Hyperlipidemia E78.5 Hyperlipidemia type: unspecified Essential hypertension I10
[2023-05-14] MEDS: potassium chloride ER 20 mEq Tablet 40 MEQ PO (14:05)
--- NOTE | 2023-05-14 15:00 | NMCV_ITS ---
NM blane perf SPECT r/s* [id number] Silas Solares Age: 53 Gender: M : 1970 Exam Date: 05/14/2023 06:35 Ordering Phys: Jignesh Coffey MD Technologist: LJ Sawyer Exam Location: [facility] Indications: CHEST PAIN STRESS TEST [facility] IMAGE PROTOCOL Rest/Stress 1 Lexiscan Day Radiopharmaceutical Dose (mCi) Administration Site Administered by Rest: Tc-99m 10.6 IV LJ Durand Sestamibi Stress:Tc-99m 32.6 IV LJ Durand Sestamibi Rest: 14-May-2023 60 Discovery 630 Stress: 14-May-2023 30 Discovery 630 0.4mg Lexiscan. Images obtained in supine and prone position. SPECT RESULTS Technical Quality: Excellent Raw Data Analysis: Normal Image Corrections: No attenuation or motion correction applied Summed Stress Score: 0 Summed Rest Score: 1 Summed Difference Score: 0 PERFUSION FINDINGS SPECT images demonstrate homogeneous tracer distribution throughout the myocardium. FUNCTIONAL RESULTS (calculated via Gated SPECT) Stress Image LV EF (%): 71 Stress EDV (mL):102 TID: 0.93 Stress ESV (mL):30 FUNCTIONAL FINDINGS: There is normal left ventricular systolic function. IMPRESSIONS 1. Normal myocardial perfusion imaging with no evidence of ischemia 2. LV systolic function is normal Alcon Paz MD (Electronically Signed) Final Date: 14 May 2023 10:41 S
[2023-05-14] MEDS: aspirin 325 mg Tablet PO (17:43)
--- NOTE | 2023-05-14 18:17 | PM.PN ---
Subjective Subjective: He had some nausea during stress test. No chest pain during stress test, but had some chest pain afterwards. Vitals/I&O/Wt Last Vital Signs Temp 98.6 F 05/14/23 16:00 Pulse 79 05/14/23 18:13 Resp 19 H 05/14/23 16:00 BP 130/85 05/14/23 16:00 Pulse Ox 96 05/14/23 16:00 O2 Del Method Room Air 05/14/23 16:00 05/14/23 05/14/23 05/14/23 06:59 14:59 22:59 Intake Total 480 / 480 480 / 960 Balance 480 / 480 480 / 960 Physical Exam Narrative: Accompanied by family. Const: COMMON NORMALS: patient oriented x3 and alert GENERAL APPEARANCE: cooperative ORIENTATION/CONSCIOUSNESS: Yes awake HENMT: COMMON NORMALS: oropharynx normal Neck/C-Spine: COMMON NORMALS: no JVD Resp: COMMON NORMALS: normal respiratory effort and clear to auscultation bilaterally AUSCULTATION: clear to auscultation bilaterally Cardio: COMMON NORMALS: no JVD, regular rhythm, S1 normal heart sound present, S2 normal heart sound present and No murmurs present (Cardio) RHYTHM: regular rhythm HEART SOUNDS: S1 normal heart sound present and S2 normal heart sound present GI: COMMON NORMALS: Normal to inspection, nondistended, normoactive bowel sounds present, Soft to palpation and non-tender PALPATION: Yes Soft to palpation Extremity: COMMON NORMALS: no joint enlargement and no pedal edema Neuro: COMMON NORMALS: patient oriented x3 and moves all extremities SENSORIUM/ORIENTATION: Yes alert Skin: COMMON NORMALS: no rashes or lesions noted GENERAL SKIN EXAM: no rashes or lesions noted Data 05/14/23 08:48 05/14/23 08:48 A&P Assessment and plan (1) Chest pain: (2) Acute kidney injury: Plan 53-year-old male with history of hypertension active tobacco user presented with complaint of exertional substernal chest pain relieved with rest since 3 weeks and found to have acute renal failure. Chest pain: Recurrent worsening chest pain with exertion recently, limiting his work activity. Nausea during stress test. Resolved stress test reviewed, results of echo reviewed. Discussed with him. Both unremarkable. He had an episode of chest pain after stress test. Additionally reports previously received nitroglycerin during episode of chest pain and it had relieved his symptoms. Discussed consideration of additional causes, possibility of traumatic myocardial bridge. Possibility of other causes including gastritis with ibuprofen. However, worsening nature recently particularly exertional, responsiveness to nitroglycerin, cardiac risk factors, and exclude worsened coronary disease. Discussed risks with coronary angiography and particularly in the setting of renal dysfunction, but also went over other risks as yesterday again including vessel perforation pseudoaneurysm/aneurysm, plaque dislodgment resulting in AK, CVA, nephrotoxicity and renal failure and other potential adverse effects of weight gain so far negative troponin series, unremarkable echo, unremarkable stress test. He is concerned returning home at this time and symptoms, risks, both he and his family would still like to consider angiography. Discussed with them obtaining cardiology consultation and they are agreeable. Discussed with reinsurance analyst, requested consultation. Appreciate assessment. Discussed additionally Protonix over the next 6 weeks, and encouraged to follow-up for reassessment by PCP in case of any persistent symptoms consideration of arrangements for endoscopic evaluation to exclude PUD, malignancy, etc. Dyspnea on exertion: On my review of chest x-ray does appear somewhat hyperinflated. Discussed this with him and his family, consideration should be given to pulmonary function testing on follow-up with his primary provider for additional assessment as discussed yesterday and today, they verbalized understanding. Otherwise no suggestion of pneumonia, no marked abnormality on chest x-ray. D-dimer noted WNL. Additional cardiac assessment as above. Would also benefit from sleep study as discussed with them. Acute renal failure: Reviewed renal function, electrolytes. Noted mild hypokalemia, replaced with replacement. Resolving ЕЛЕНА, noted BUN 18, creatinine on review is 1.4. Does take ibuprofen at home. Discussed to stop and avoid NSAIDs. Received fluid challenge. Hold losartan. Some improvement in creatinine on review of renal function, BUN 28, reviewed, creatinine shows 2.8. Anticipate may continue to improve. Reassess kidney function, electrolytes, anion gap, Off IV fluids. Hypertension: Continue amlodipine, metoprolol. Monitor blood pressures. Discussed with them would benefit from long-term blood good blood pressure control. Noted for the most part blood pressure here 130s over 80s, however, occasional spikes up to 160 systolic. If able to should resume and continue losartan alongside amlodipine and metoprolol. Past episode of AFib several decades ago: Continue metoprolol, continue aspirin 325 mg. Attestations Medical Necessity Statement*: Continue admission for assessment management of worsening chest pain limiting normal activity in gentleman with cardiovascular risk factors for ACS. Diagnoses Chest pain R07.9 Acute kidney injury N17.9
--- NOTE | 2023-05-14 19:55 | PC.NURSE ---
Patient requesting something for sleep tonight stating benadelianal did not work last night. Also, reports feeling nervous about having heart cath tomorrow. Informed Dr Anderson and received order for Restoril 15mg PO PRN for sleep. RBVO
[2023-05-14] MEDS: enoxaparin 40 mg/0.4 mL Syringe SUBCUT (20:55)
[2023-05-14] MEDS: temazepam 15 mg Capsule PO (20:56)
[2023-05-14] MEDS: atorvastatin 40 mg Tablet 20 MG PO (20:56)
[2023-05-15] VITALS (25 sets, daily range): BP systolic 90–124; BP diastolic 63–89; PULSE 52–87; RESP 13–27; TEMP 36.5–37.2; O2SAT 91–98
[2023-05-15 05:03] LABS: Basophils % 0.7 %; Eosinophils # 0.2 10^3/uL (0.0-0.8); Eosinophils % 3.5 %; Hematocrit 39.7 % (37-53); Lymphocytes # 1.8 10^3/uL (0.8-4.8); Lymphocytes % 30.8 %; Mean Corpuscular HGB Conc 34.8 g/dL (30-55); Mean Corpuscular Hemoglobin 31.7 pg (27-33); Mean Corpuscular Volume 91.3 fl (82-101); Mean Platelet Volume 8.9 fL (7.4-10.4); Monocytes # 0.4 10^3/uL (0.2-0.9); Monocytes % 7.1 %; Neutrophils % 57.6 %; Nucleated Red Blood Cells % 0 %; Platelet Count 217 10^3/cmm (157-399); Red Blood Count 4.35 10^6/uL (3.85-5.65); Red Cell Distribution Width 15.4 % (12.1-15.1); White Blood Count 5.74 10^3/uL (3.29-11.43)
[2023-05-15 05:22] LABS: Anion Gap 15.9 (5-19); Blood Urea Nitrogen 18 mg/dL (6-20); Calcium 9.5 mg/dL (8.5-10.5); Carbon Dioxide 21 mmol/L (22-29); Chloride 102 mmol/L (98-107); Glomerular Filtration Rate 57.7 mL/min (90-130); Glucose 100 mg/dL (65-115); Osmolality Calculated 282 mOsm/kg (285-295); Potassium 3.9 mmol/L (3.5-5.1); Sodium 135 mmol/L (136-145)
[2023-05-15] MEDS: diphenhydrAMINE 50 mg Capsule PO (05:23)
[2023-05-15] MEDS: aspirin 325 mg Tablet PO (05:24)
[2023-05-15] MEDS: sodium chloride 0.9% 1,000 ML 50 ML IV (05:24)
--- NOTE | 2023-05-15 05:42 | XACV_ITS ---
Exam Room: [facility] Ht: 175 cm Wt: 100 kg BSA: 2.24 m2 Gender: Male : 1970 Any Known Allergies: Morphine Exam Priority: Routine Indication(s): - Unstable angina Procedure(s): Procedure Description: Diagnostic procedure Procedure Description: Left Heart Catheterization Procedure Description: Left ventriculography Procedure Description: Coronary Angiography Elvis MROA; Diagnostic Cath Status: Urgent Diagnostic Findings * The left main is a medium to large caliber short vessel with no significant stenotic lesions. * The left anterior descending artery is a medium to large caliber vessel which appears to taper around the LV apex minimally. The mid LAD was found to have a tubular narrowing of around 50%, during systole. No other significant lesions were noted.. * The left circumflex artery is a large-caliber vessel with no significant stenotic lesions. * The right coronary artery is a large-caliber dominant vessel with no significant stenotic lesions. Conclusions 1. 53-year-old white male with a history of high blood pressure, dyslipidemia and family history for premature atherosclerotic heart disease, presenting with increasing episodes of chest pain and shortness of breath with exertion. His EKG showed diffuse ST-T changes. The echocardiogram in the Myocardial perfusion imaging were found to be unremarkable. Because of the patient's ongoing worsening of the symptoms, in order to further evaluate his coronary status, a cardiac catheterization was recommended. Patient underwent left heart catheterization with left and right coronary angiogram and LV angiogram today. The findings are as follows. 2. 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 No other significant coronary lesions. Elevated LVEDP of 22 mmHg. LV ejection fraction of 55%. Diagnostic RX Recommendation: medical therapy and/or counseling LV EDP: 22 mmHg Ventriculography Ejection Fraction: 55.0 % Left Ventriculography Findings: * The LV gram was performed in the KRAFT projection. The LV cavity appears to be of normal size. There was no filling defects. No significant mitral valve prolapse or mitral regurgitation. LV ejection fraction was around 55%. LVEDP was 22 mmHg which went up to 26 mmHg following the LV angiogram.. Pressures Phase:Rest AO : / ( 0 ) @ 7:45:00 AM 83 / 74 ( 78 ) @ 8:00:00 AM 86 / 76 ( 81 ) @ 8:00:00 AM 122 / 81 ( 102 ) @ 8:10:00 AM 126 / 75 ( 99 ) @ 8:10:00 AM LV : 1 / -1 / 0 @ 8:07:00 AM 141 / 0 / 22 @ 8:09:00 AM 143 / 4 / 26 @ 8:10:00 AM 143 / 3 / 25 @ 8:10:00 AM Valves Phase:DefaultPhase AV : 23.0 @ 7:19:47 AM AV Mean Gradient: 13.0 @ 7:19:47 AM 13.0 @ 7:19:47 AM Clinical Evaluation EBL: 5mL-10mL Procedural Details Procedure Consent Obtained. Admit Source: Out Patient. Current Diagnosis : Unstable angina. Pre-Procedure Time Out. Identified patient by full name and date of as verbalized by the patient/guarantor. Does the consent match the physician's order: Yes. Accurate & Complete Informed Consent: Yes. Inpatient/Outpatient History & Physical on Chart: Yes. If H&P is completed, is and addenduem needed: No; If yes, is the addendum complete: N/A. Visualize and Verify Site with Patient/Guarantor: N/A. Relevant Radiology Images available: N/A. The risks, benefits, and alternatives of sedation and/or procedure were discussed by physician. The patient agrees to continue. Procedure started. [facility] Clinical Fraility Score: 3: Managing Well. Clinical Laboratory Director Indications: Worsening Angina. Chest Pain Symptom Assessment: Typical Angina Symptoms. Cardiovascular Instability: No, stable. Correct patient, site and procedure confirmed by cath team. Current diagnosis: Unstable angina. PERRLA. Strong, equal hand account engineer bilaterally. Lungs clear x 5 lobes. IV Site on Arrival: 20 gauge in the right anticubital. IV Fluids: 0.9% NaCl at KVO. 200 mL infused prior to animal laboratory helper. Pre Procedural Pulses: bilateral posterior tibial was Doppled. Pre Procedural Pulses: bilateral dorsalis pedis was Doppled. Pre Procedural Pulses: bilateral radial was 3+. Oxygen started at 3liters/min via nasal canula. right groin was prepped with chloroprep then draped in the usual sterile fashion. right radial was prepped with chloroprep then draped in the usual sterile fashion. Physician notified. Baseline sample Acquired. HR: 55 BPM. Physician arrived. Physician scrubbed in. Immediate Pre-Procedure Time Out. Correct Patient: Yes; Correct Procedure: Yes; Correct Site: Yes; Correct Patient Position: Yes; Correct Supplies: Yes; Dried Flammable Prep: Yes; Blood Products Available: N/A;. Lidocaine 1% infiltrated to the right radial. Arterial access obtained. A 5 [place] catheter in over the exchange wire. Multiple views taken of left coronary artery. Catheter redirected to the RCA. Unable to cannulate the RCA. Catheter removed over the wire. A 5 [place] JR4 catheter in over wire. Multiple views taken of right coronary artery. Catheter removed over the exchange wire. A 5 [place] Angled Pig catheter in over wire. EDP Sample taken: LV 141/-1,22; HR: 67 BPM; SpO2: 94%. LV gram performed in KRAFT @ 10 mL/second for a total of 30 mL. EDP Sample taken: LV 143/4,26; HR: 77 BPM; SpO2: 94%. Patient EF: Normal. Pullback taken: LV 143/3,25; AO 122/81(102); Mean: 13mmHg, Peak to Peak: 23mmHg, SEP: 15sec/min; HR: 77 BPM; SpO2: 94%. Catheter removed over the exchange wire. Physician review of films. Physician scrubbed out. A TR Band was successful obtaining hemostatsis at the Right Radial artery insertion site. TR band placed. Hemostasis obtained. Post Procedure: Pulses reassessed and unchanged. PERRLA. Strong, equal hand account engineer bilaterally. No VTE prophylaxis required. Medication waste: Nitroglycerine- 49.8 mg; Heparin- 1000 units. Total IV fluids: 140 mL. Fluoro: 5:01. Contrast type used: Omnipaque 300 mg/mL, 150 mL bottle. [id number]. Post-op diagnosis: Myocardial Brigde; LV Diastolic Dysfunction. Complications: None. Estimated blood loss: 5mL-10mL. Responsiveness - Normal response to verbal stimuli; alert and oriented, PERRLA. Airway - Unaffected, no intervention required; spontaneous ventilation. Circulation: W/N/L, pulses unchanged. Nausea/Vomiting: No. Procedure completed. Patient transferred by wheelchair to 1st floor. Vital chart was stopped. Access Site Site: Right Radial artery Sheath Size: 5 Fr Hemostasis Method: TR Band Hemostasis Success: Successful Procedure Medications Start: 6:45 AM Stop: 6:45 AM Medication: Fentanyl Amount: 25 mcg Route: I.V. Start: 6:50 AM Stop: 6:50 AM Medication: Versed 1 mg and Fentanyl 25 mcg Amount: 1 Route: I.V. Start: 6:53 AM Stop: 6:53 AM Medication: Versed Amount: 1 mg Route: I.V. Start: 6:54 AM Stop: 6:54 AM Medication: Fentanyl Amount: 50 mcg Route: I.V. Start: 6:57 AM Stop: 6:57 AM Medication: Nitrogylcerin Amount: 200 mcg Route: I.A. Start: 6:57 AM Stop: 6:57 AM Medication: Verapamil Amount: 5 mg Route: I.A. Start: 7:00 AM Stop: 7:00 AM Medication: Heparin Amount: 5000 units Route: I.V. I, the attending physician, have reviewed and verified all procedure medications. Yes, all medications given per verbal order History/Risk Factors Hypertension: Yes Dyslipidemia: Yes Peripheral Arterial Disease (PAD): No Myocardial Infarction (AL): No Obesity: No Renal Disease: No Tobacco Use: Current/Recent(w/in 1 year) Prior Interventions PCI: No CABG: No Valve Surgery: No Report Signatures Finalized by Dr Yan Leal MD [facility] on 05/15/2023 09:29 AM
--- NOTE | 2023-05-15 06:43 | W.PM.OPSUD ---
Surgery/Procedure H&P Update DATE OF PROCEDURE: May 15, 2023 DATE H&P PERFORMED: 05/14/23 H&P UPDATE INFORMATION: I have reviewed H&P completed within last 30 days, I have examined patient prior to procedure and No changes to prior documentation PREOP DIAGNOSIS: Possible ASHD PRIMARY INDICATION FOR PROCEDURE: Worsening chest pain, abnormal EKG PLANNED PROCEDURE: Left heart catheterization with a left and right coronary angiogram and possible PCI PATIENT REASSESSED PRIOR TO SEDATION, WITH NO CHANGE NOTED: Yes PHYSICAL EXAM: alert, oriented x 3, clear to auscultation bilaterally and regular rate & rhythm AIRWAY EVAL/ANESTHESIA PLAN: normal airway, see other exam findings, ASA II, Monitored Anesthesia, Risks, benefits & alternatives of sedation and/or procedure discussed and Patient agrees to continue as planned
[2023-05-15] MEDS: famotidine 20 mg/2 mL INJ IVP (08:25)
--- NOTE | 2023-05-15 09:38 | P.PN_ITS ---
Subjective Subjective: Patient underwent a cardiac catheterization today. He was found to have myocardial bridge of the mid LAD causing around 50% narrowing. His LV ejection fraction was normal. Rest of the coronary arteries did not have any significant lesions. Medications: Medication Review Details: Current Medications Acetaminophen (Acetaminophen 325 Mg Tablet) 650 mg PO Q6H PRN PRN Reason: MILD PAIN Al Hydrox/Mg Hydrox/Simethicone (Yngm-Irz-Wpzcphduv-Kaci 30 Ml Udc) 30 ml PO Q15M PRN PRN Reason: INDIGESTION Amlodipine Besylate (Amlodipine 10 Mg Tablet) 10 mg PO DAILY [facility] Last Admin: 05/14/23 08:37 Dose: 10 mg Aspirin (Aspirin 325 Mg Tablet) 325 mg PO DAILY@1800 [facility] Last Admin: 05/14/23 17:43 Dose: 325 mg Atorvastatin Calcium (Atorvastatin 40 Mg Tablet) 20 mg PO BEDTIME [facility] Last Admin: 05/14/23 20:56 Dose: 20 mg Atropine Sulfate (Atropine 1 Mg/Ml Sdv 1 Ml) 0.5 mg IVP PRN PRN PRN Reason: Symptomatic bradycardia Enoxaparin Sodium (Enoxaparin 40 Mg/0.4 Ml Syringe) 40 mg SUBCUT Q24H [facility] Last Admin: 05/14/23 20:55 Dose: 40 mg Famotidine (Famotidine 20 Mg/2 Ml Inj) 20 mg IVP Q12H [facility] Last Admin: 05/15/23 08:25 Dose: 20 mg Fentanyl (Fentanyl 50 Mcg/Ml Inj 2ml) 50 mcg IVP PRN PRN PRN Reason: Prior to sheath removal Sodium Chloride (Sodium Chloride 0.9%) 1,000 mls @ 75 mls/hr IV .[id number] ONE Stop: 05/15/23 20:19 Last Admin: 05/15/23 05:24 Dose: 50 mls/hr Isosorbide Mononitrate (Isosorbide Mononitrate Er 30 Mg Tablet) 30 mg PO DAILY [facility] Magnesium Hydroxide (Magnesium Hydroxide 30 Ml Udc) 30 ml PO DAILY PRN PRN Reason: CONSTIPATION Metoprolol Succinate (Metoprolol Succinate Er (24 Hr) 50 Mg Tablet) 50 mg PO DAILY [facility] Last Admin: 05/14/23 08:37 Dose: 50 mg Naloxone HCl (Naloxone 0.4 Mg/Ml Sdv) 0.1 mg IVP Q2M PRN PRN Reason: RESPIRATORY RATE < 8/MIN Nitroglycerin (Nitroglycerin 0.4 Mg Sublingual Tablet) 0.4 mg SUBLINGUAL Q5M PRN PRN Reason: CHEST PAIN Non-Formulary Medication (Varenicline) 1 mg PO BID [facility] Last Admin: 05/15/23 08:09 Dose: Not Given Ondansetron HCl (Ondansetron 2 Mg/Ml Sdv 2 Ml) 4 mg IVP Q2M PRN PRN Reason: NAUSEA Temazepam (Temazepam 15 Mg Capsule) 15 mg PO BEDTIME PRN PRN Reason: INSOMNIA Last Admin: 05/14/23 20:56 Dose: 15 mg Temazepam (Temazepam 15 Mg Capsule) 15 mg PO BEDTIME PRN PRN Reason: INSOMNIA Vitals/I&O/Wt Last Vital Signs Temp 97.7 F 05/15/23 07:53 Pulse 55 L 05/15/23 07:53 Resp 18 05/15/23 07:53 BP 101/63 05/15/23 07:53 Pulse Ox 93 05/15/23 07:53 O2 Del Method Room Air 05/15/23 04:00 05/14/23 05/15/23 05/15/23 22:59 06:59 14:59 Intake Total 1480 / 1960 1200 / 3160 Output Total 200 / 200 Balance 1480 / 1960 1000 / 2960 Physical Exam Narrative: GENERAL: The patient is alert and oriented times three. Not in any acute distress. [] HEENT: No significant pallor, icterus or lymphadenopathy.Oral cavity: There are no mucous membrane lesions. NECK: Trachea appears to be central. No masses noted. No JVD or thyromegaly appreciated. RESPIRATORY: Chest is symmetrical. No intercostals muscle retraction or any accessory muscle activation. There is no chest wall tenderness. Breath sounds are heard bilaterally. No rales or rhonchi heard. No evidence of any consolidation. [] BREASTS: Deferred. HEART: The heart sounds are normal. No S3 or S4. No significant murmurs. No pericardial rub ABDOMEN: No vessel pulsations or distention. No tenderness. No organomegaly appreciated. Bowel sounds are normally heard. : Deferred. RECTAL: Deferred. LYMPHATIC: No lymphadenopathy noted in the neck. EXTREMITIES: No edema or cyanosis. No clubbing. MUSCULOSKELETAL: No acute joint deformities or swelling SKIN: There are no significant rashes or ecchymosis.Multiple tattoo nelson in the upper extremities NEUROPSYCHIATRIC: The patient is alert and oriented x3. Appears to be in a good mood. No tremors or rigidity noted. Data 05/15/23 04:20 05/15/23 04:20 A&P Assessment and plan (1) Chest pain: Patient status postcardiac arrest lesion. 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 Normal LV ejection fraction. Elevated LVEDP of 22 mmHg. Based on this, I may start him on isosorbide mononitrate 30 mg p.o. daily in addition to the current medications. (2) Abnormal EKG: The angiogram findings are as mentioned above. (3) Hyperlipidemia: May continue on the current management. Qualifiers: Hyperlipidemia type: unspecified Qualified Code(s): E78.5 - Hyperlipidemia, unspecified (4) Essential hypertension: Currently the blood pressure is fairly under control. May continue on the current medications. Plan Creatinine is elevated to 1.3 Encourage oral hydration If the patient remained stable with no new symptoms, he may be discharged home on the above medications. Please make an appointment for him to be seen in the clinic in 1 week by the nurse practitioner. Appointment with me in the office in 2 months Need to repeat the BMP in the office Attestations Medical Necessity Statement*: Possible discharge home today Coding Level of Care Code Acute Code for Chg Fwd Diagnoses Chest pain R07.9 Abnormal EKG R94.31 Hyperlipidemia E78.5 Hyperlipidemia type: unspecified Essential hypertension I10
[2023-05-15] MEDS: ondansetron 2 mg/ML SDV 2 mL 4 MG IVP (12:28)
--- NOTE | 2023-05-15 14:11 | PM.DCS ---
Discharge Providers Date of Admission: 05/12/23 20:28 Date of Discharge: May 15, 2023 Attending Provider at Admission: Libby Anderson MD Attending Provider at Discharge: Jignesh Coffey Primary Care Provider: Jose Ewing DO Diagnoses at Discharge Discharge Diagnosis (1) Chest pain: Status: Acute (2) Abnormal EKG: Status: Acute (3) Hyperlipidemia: Status: Acute Qualifiers: Hyperlipidemia type: unspecified Qualified Code(s): E78.5 - Hyperlipidemia, unspecified (4) Essential hypertension: Status: Acute Reason for Visit Reason for Visit: chest pain Hospital Course Hospital Course Pleasant 53-year-old gentleman with history of hypertension, chewing tobacco use, history of myocardial bridge however distal LAD noted on angiogram back in 2006, presented due to progressively worsening exertional intolerance, exhaustion, left-sided chest pain, dyspnea on exertion, and presentation also with finding of acute kidney injury, creatinine up to 3.3, prior baseline close to 1. He was monitored on telemetry. Troponin and EKG series were completed, with mild ST depression, T wave inversions laterally, negative troponin series. Assessed by 2D echo which was unremarkable with normal ejection fraction, no RWMA but with grade 1 diastolic dysfunction. D-dimer was assessed with low risk for PE and was unremarkable supportive of low risk for pulmonary embolism. Chest x-ray was unremarkable. As his symptoms had been progressively worsening recently and significantly limiting his exertion, limiting work activity, cardiology was consulted, discussed options with him with regards to assessment, risks including due to renal dysfunction which was gradually improving while in the hospital. He decided to proceed with coronary angiogram assessment which revealed no severe stenosis, again with noted myocardial bridge. He will be started on long-acting nitrate, nitroglycerin as needed. However, as blood pressure is noted soft, also episode of bradycardia, his losartan and metoprolol doses are de-escalated down to 50 mg losartan and 25 mg metoprolol. Continues on amlodipine as per cardiology recommendation to help reduce possible vasospasm. We discussed additional possibilities for causes of dyspnea on exertion. Certainly if his blood pressure gets soft or he becomes bradycardic this may contribute to exertional intolerance. He is instructed to closely monitor his blood pressures and heart rates and to bring records to his appointment. Additionally discussed on chest x-ray lungs do appear somewhat hyperinflated. Please consider referral for additional assessment by pulmonary function testing. Consider sleep study as well. His acute kidney injury has been improving, initially received fluid challenge. Losartan was held while in the hospital. He did state he was taking ibuprofen previously at home. Discussed to discontinue ibuprofen, please avoid NSAIDs. Please follow-up renal function. Mild hypokalemia in the hospital while recovering from ЕЛЕНА. Please follow-up potassium. Physical Exam Narrative: Accompanied by family. He is doing quite well this morning. No pain or discomfort. No trouble breathing. Feels ready to return home. Const: COMMON NORMALS: patient oriented x3 and alert GENERAL APPEARANCE: cooperative ORIENTATION/CONSCIOUSNESS: Yes awake HENMT: COMMON NORMALS: oropharynx normal Neck/C-Spine: COMMON NORMALS: no JVD Resp: COMMON NORMALS: normal respiratory effort and clear to auscultation bilaterally AUSCULTATION: clear to auscultation bilaterally Cardio: COMMON NORMALS: no JVD, regular rhythm, S1 normal heart sound present, S2 normal heart sound present and No murmurs present (Cardio) RHYTHM: regular rhythm HEART SOUNDS: S1 normal heart sound present and S2 normal heart sound present GI: COMMON NORMALS: Normal to inspection, nondistended, normoactive bowel sounds present, Soft to palpation and non-tender PALPATION: Yes Soft to palpation Extremity: COMMON NORMALS: no joint enlargement and no pedal edema OTHER: R wrist access site unremarkable Neuro: COMMON NORMALS: patient oriented x3 and moves all extremities SENSORIUM/ORIENTATION: Yes alert Skin: COMMON NORMALS: no rashes or lesions noted GENERAL SKIN EXAM: no rashes or lesions noted Discharge Data Studies Completed and Pending Completed Studies During Hospitalization Category Date Time Status 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 echo complete* [id number] Routine Ultrasound 05/13/23 17:48 Completed Pending at discharge Category Date Time Status CA echo doppler complete Routine Exams 05/12/23 20:53 Stop Req Basic Metabolic Panel AM LABS Lab 05/16/23 04:00 Ordered Basic Metabolic Panel AM LABS Lab 05/17/23 04:00 Ordered Complete Blood Count w/Auto AM LABS Lab 05/16/23 04:00 Ordered Complete Blood Count w/Auto AM LABS Lab 05/17/23 04:00 Ordered Radiology Impressions Chest X-Ray 05/12/23 18:02 IMPRESSION: No acute findings. Laboratory Results WBC 5.74 10^3/uL (3.29-11.43) 05/15/23 04:20 RBC 4.35 10^6/uL (3.85-5.65) 05/15/23 04:20 Hgb 13.80 g/dL (11.27-16.99) 05/15/23 04:20 Hct 39.7 % (37-53) 05/15/23 04:20 MCV 91.3 fl (82-101) 05/15/23 04:20 MCH 31.7 pg (27-33) 05/15/23 04:20 MCHC 34.8 g/dL (30-55) 05/15/23 04:20 RDW 15.4 % (12.1-15.1) H 05/15/23 04:20 Plt Count 217 10^3/cmm (157-399) 05/15/23 04:20 MPV 8.9 fL (7.4-10.4) 05/15/23 04:20 Neut % (Auto) 57.6 % 05/15/23 04:20 Lymph % (Auto) 30.8 % 05/15/23 04:20 [place] % (Auto) 7.1 % 05/15/23 04:20 Eos % (Auto) 3.5 % 05/15/23 04:20 Baso % (Auto) 0.7 % 05/15/23 04:20 Neut # (Auto) 3.30 10^3/uL (1.8-7.7) 05/15/23 04:20 Lymph # (Auto) 1.8 10^3/uL (0.8-4.8) 05/15/23 04:20 [place] # (Auto) 0.4 10^3/uL (0.2-0.9) 05/15/23 04:20 Eos # (Auto) 0.2 10^3/uL (0.0-0.8) 05/15/23 04:20 Baso # (Auto) 0.0 10^3/uL (0.0-0.1) 05/15/23 04:20 Nucleated RBC % (auto) 0 % 05/15/23 04:20 Nucleated RBCs # 0.0 /100WBC 05/15/23 04:20 PT 13.00 SECONDS (12.1-14.9) 05/12/23 18:12 INR 0.96 (0.8-1.2) 05/12/23 18:12 APTT 32.5 SECONDS (23.9-36.7) 05/12/23 18:12 D-Dimer 0.31 ug/mLFEU (0-0.59) 05/13/23 12:28 Sodium 135 mmol/L (136-145) L 05/15/23 04:20 Potassium 3.9 mmol/L (3.5-5.1) 05/15/23 04:20 Chloride 102 mmol/L (98-107) 05/15/23 04:20 Carbon Dioxide 21 mmol/L (22-29) L 05/15/23 04:20 Anion Gap 15.9 (5-19) 05/15/23 04:20 BUN 18 mg/dL (6-20) 05/15/23 04:20 Creatinine 1.3 mg/dL (0.7-1.2) H 05/15/23 04:20 GFR Calculation 57.7 mL/min (90-130) L 05/15/23 04:20 Glucose 100 mg/dL (65-115) 05/15/23 04:20 Calculated Osmolality 282 mOsm/kg (285-295) L 05/15/23 04:20 Calcium 9.5 mg/dL (8.5-10.5) 05/15/23 04:20 Phosphorus 4.5 mg/dL (2.5-4.5) 05/13/23 01:39 Magnesium 2.0 mg/dL (1.7-2.3) 05/13/23 01:39 Total Bilirubin 0.5 mg/dL (0.15-1.2) 05/13/23 01:39 AST 37 U/L (0-40) 05/13/23 01:39 ALT 63 U/L (0-41) H 05/13/23 01:39 Alkaline Phosphatase 83 U/L (40-130) 05/13/23 01:39 Troponin T Baseline 14 ng/L (0-15) 05/12/23 18:12 Troponin T 120 Minute 11.30 ng/L (0-15) 05/12/23 20:16 Delta Troponin T -2.70 ABS# (0-10) L 05/12/23 20:16 Troponin T Hi Sens 6Hr 10.58 ng/L (0-15) 05/13/23 01:39 Troponin T Hi Sens 6Hr Delta -3.42 ng/L (0-12) L 05/13/23 01:39 Total Protein 6.8 g/dL (6.6-8.7) 05/13/23 01:39 Albumin 4.2 g/dL (3.5-5.2) 05/13/23 01:39 Globulin 2.6 g/dL (1.3-4.6) 05/13/23 01:39 Triglycerides 283 mg/dL (0-150) H 05/13/23 01:39 Cholesterol 287 mg/dL (0-200) H 05/13/23 01:39 LDL Cholesterol, Calc 177 mg/dL (50-129) H 05/13/23 01:39 HDL Cholesterol 53 mg/dL (60-100) L 05/13/23 01:39 LDL/HDL Ratio 3.34 RATIO (0.00-3.22) H 05/13/23 01:39 Cholesterol/HDL Ratio 5.42 mg/dL (1.0-5.00) H 05/13/23 01:39 Urine Color Yellow (Yellow) 05/12/23 19:20 Urine Appearance Clear (CLEAR) 05/12/23 19:20 Urine pH 5 (5-7) 05/12/23 19:20 Ur Specific [place] 1.015 (1.005-1.030) 05/12/23 19:20 Urine Protein Neg (Negative) 05/12/23 19:20 Urine Glucose (UA) Norm (Normal) 05/12/23 19:20 Urine Ketones Negative (Negative) 05/12/23 19:20 Urine Blood Neg (Negative) 05/12/23 19:20 Urine Nitrate Negative (Negative) 05/12/23 19:20 Urine Bilirubin 1+ (Negative) H 05/12/23 19:20 Urine Urobilinogen Norm mg/dL (Negative) 05/12/23 19:20 Ur Leukocyte Esterase Negative (Negative) 05/12/23 19:20 Vitals Last Vital Signs Temp 97.8 F 05/15/23 12:00 Pulse 76 05/15/23 12:00 Resp 17 05/15/23 12:00 BP 114/79 05/15/23 12:00 Pulse Ox 92 05/15/23 12:00 O2 Del Method Room Air 05/15/23 04:00 Discharge Plan Discharge Patient Disposition: Home Condition: Stable Prescriptions: New atorvastatin 40 mg Tablet 20 mg PO BEDTIME Qty: 90 0RF pantoprazole 40 mg tablet,delayed release (DR/EC) 40 mg PO DAILY 42 Days Qty: 42 0RF nitroglycerin 0.4 mg Tablet, Sublingual 0.4 mg sublingual Q5M PRN (Reason: Chest Pain) Qty: 25 0RF isosorbide mononitrate 30 mg Tablet Extended Release 24 Hr 30 mg PO DAILY Qty: 90 0RF Continued amlodipine 10 mg tablet 10 mg PO DAILY Qty: 90 3RF varenicline 1 mg tablet 1 mg PO BID Qty: 56 0RF Rx Instructions: Take one tablet by mouth twice daily. aspirin 325 mg Tablet 325 mg PO DAILY Changed metoprolol succinate 50 mg tablet extended release 24 hr 25 mg PO DAILY Qty: 90 3RF losartan 100 mg tablet 50 mg PO DAILY Qty: 90 3RF Discharge Orders: Discharge Order (Routine); Ordered 05/15/23 Ordered By: Jignesh Coffey Referrals: Jose Ewing DO [Primary Care Provider] - 05/20/23 8:30 am (Exertional intolerance, exertional chest pain episode. ) Alcon Paz M.D [Physician] - (Your Dr. Paz follow up will be scheduled during your Britney Kaur appointment. Thank you.) Britney Kaur FNP [Nurse Practitioner] - 05/21/23 10:30 am Discharge Diet: Cardiac Patient Instructions: Nitroglycerin (By mouth), Isosorbide Mononitrate (By mouth) (Imdur, Imdur ER, Ismo), Atorvastatin (By mouth), Pantoprazole (By mouth), Chest Pain (GEN), Acute Kidney Injury (GEN), Potassium Content of Foods List (GEN), Chronic Hypertension (GEN), Prevent Cardiovascular Disease (GEN), Post Angiogram Home Care Instructions, Post Heart Attack Stoplight Activity Restrictions/Additional Instructions: As discussed, seek medical attention immediately in case of any worsening or new concerning symptoms. Avoid lifting more than 3 pounds for 2 days, in case of any pulsatile mass, pain, bleeding in the right wrist or pale or blue discoloration of the right hand, loss of sensation or power, seek medical attention immediately as discussed. Follow-up with your primary doctor regarding exertional intolerance, discussed additional assessment with referral for pulmonary function testing. Continue to optimize control of hypertension. Monitor blood pressure 3 times daily. Write down values if are not stored on your blood pressure cuff. Bring blood pressure cuff or log of blood pressure values to your appointment. Avoid blood pressures that are too low. Hold losartan and amlodipine in case blood pressure is less than 110/60. Hold metoprolol if heart rate is less than 60. Low blood pressure and heart rate that is too low may also make you feel weak and out of breath. Target blood pressure 120/80. Discuss with your primary provider regarding diastolic dysfunction. Good blood pressure control will help prevent risk of progression of diastolic dysfunction and going into congestive heart failure. Consider referral for sleep study with your primary provider as well. Follow-up with your primary provider regarding acute kidney dysfunction. Stop and avoid any NSAIDs, ibuprofen, Aleve, etc. Have your primary provider reassess for continued improvement of kidney function. Have your primary provider recheck your potassium level due to mildly low potassium while recovering from kidney dysfunction. For now include potassium rich foods. Discharge Attestations Time Spent in Discharge Care*: greater than 30 min Quality Metrics Clinical Quality Measures [ No reported AMI, CVA or VTE this stay] Coding Level of Care Code 37830 Total time (in minutes) for Discharge: 60 Diagnoses Chest pain R07.9 Abnormal EKG R94.31 Hyperlipidemia E78.5 Hyperlipidemia type: unspecified Essential hypertension I10
--- NOTE | 2023-05-15 15:18 | PC.NURSE ---
Discharge Note Patient discharged to home via wheelchair accompanied by POV. Discharge instructions reviewed with patient and/or medical detail representative. Mobile pharmacy medications and/or prescriptions provided. Belongings/home medications returned.
== END 2023-05-15 16:02 | disposition home or self-care (01) | DRG 287 ==
LOC: ER 19:11 → CSU 20:15
PROVIDERS: Internal Medicine Cardiovascular Disease; Admitting Provider Internal Medicine; Emergency Provider Physician Assistant; PCP Family Medicine; Visit Provider Internal Medicine
PROC: 4A023N7 Measurement of Cardiac Sampling and Pressure, Left Heart, Percutaneous Approach (ICD-10-PCS; principal; 2023-05-15 07:00)
DX: I24.9 Acute ischemic heart disease, unspecified (principal); Q24.5 Malformation of coronary vessels; I50.30 Unspecified diastolic (congestive) heart failure; N17.9 Acute kidney failure, unspecified; I11.0 Hypertensive heart disease with heart failure; F10.90 Alcohol use, unspecified, uncomplicated; Z87.891 Personal history of nicotine dependence; Z96.651 Presence of right artificial knee joint; Z96.619 Presence of unspecified artificial shoulder joint; E78.5 Hyperlipidemia, unspecified; E86.0 Dehydration; Z82.49 Family history of ischemic heart disease and other diseases of the circulatory system; R94.31 Abnormal electrocardiogram [ECG] [EKG]; E87.6 Hypokalemia
CPT/HCPCS: 36415; 71045; 78452; 80048; 80053; 80061; 81003; 83735; 84100; 84484; 85025; 85378; 85610; 85730; 93005; 93306; 93458; 96367; 96372; 96375; 96376; 99152; 99153; 99285; A9500; C1769; C1887; C1894; J1644; J1650; J2250; J2405; J2785; J3010; J3490; J7030; Q0163; Q9967

== ENCOUNTER → 2023-05-20 09:09 | Outpatient (BNVA) | payer BC, MEDICAID, SELFPAY | PROVIDERS: PCP Family Medicine; Visit Provider Family Medicine | DX: N17.9 Acute kidney failure, unspecified (principal) | CPT/HCPCS: 80048 ==

== ENCOUNTER 2023-07-03 06:50 | Outpatient (CLI) | payer BC, MEDICAID, SELFPAY | END 2023-07-03 06:51 | disposition home or self-care (01) | LOC: RT 06:51 | PROVIDERS: PCP Family Medicine; Visit Provider Nurse Practitioner Family | DX: R09.89 Other specified symptoms and signs involving the circulatory and respiratory systems (principal) | CPT/HCPCS: 94010; 94726; 94729 ==

== ENCOUNTER → 2023-08-11 09:28 | Outpatient (BNVA) | payer BC, MEDICAID, SELFPAY | PROVIDERS: PCP Family Medicine; Visit Provider Family Medicine | DX: E11.9 Type 2 diabetes mellitus without complications (principal); E78.5 Hyperlipidemia, unspecified; I10 Essential (primary) hypertension | CPT/HCPCS: 80061; 83036; 85025 ==

== ENCOUNTER → 2023-08-15 08:45 | Outpatient (BNVA) | payer BC, MEDICAID, SELFPAY | PROVIDERS: PCP Family Medicine; Referring Provider Family Medicine; Visit Provider Student in an Organized Health Care Education/Training Program | DX: M25.562 Pain in left knee (principal); G89.29 Other chronic pain; M17.12 Unilateral primary osteoarthritis, left knee; Z01.818 Encounter for other preprocedural examination | CPT/HCPCS: 36415; 73560; 73565; 80053; 81003; 85025 ==

== ENCOUNTER 2023-09-03 16:30 | Emergency (ER) | payer BC, MEDICAID, SELFPAY ==
[2023-09-03 16:31] VITALS: BP 112/73; PULSE 76; RESP 18; TEMP 36.5; O2SAT 96
--- NOTE | 2023-09-03 16:35 | XRR_ITS ---
PROCEDURE INFORMATION: Exam: XR Left Shoulder Exam date and time: 09/03/2023 4:40 PM Age: 53 years old Clinical indication: Injury or trauma; Other: Not sprecified; Blunt trauma (contusions or hematomas); Shoulder; Left TECHNIQUE: Imaging protocol: Radiologic exam of the left shoulder. Views: 2 or more views. COMPARISON: CR (CHEST, ) 05/12/2023 6:06 PM FINDINGS: Bones/joints: Normal. Soft tissues: Normal. XR/XR shoulder LT min 2V* [id number] IMPRESSION: No acute findings.
--- NOTE | 2023-09-03 16:37 | ED_ITS ---
HPI - Extremity Problem General: Chief complaint: Extremity Injury, Upper Stated complaint: left shoulder pain Time Seen by Provider: 09/03/23 16:36 History of Present Illness: 53-year-old male patient comes in with l eft shoulder pain. Patient reports this morning he was walking down a ramp and slipped on the cross catching himself with left arm causing it to hyperabducted. Since then patient has had increased pain and discomfort to the anterior shoulder. Patient states it felt like it popped out and popped back in. Patient appears nontoxic. Patient appears in mild to moderate pain. Review of Systems General: Reports: 10 or more systems reviewed and unremarkable except in HPI and below Musc: Reports: joint pain (Left shoulder injury) [facility] ED PFSH: Medical History Abnormal heart rhythm Atrial fibrillation, around 30 years of age, cardioversion, after alcohol intake Essential hypertension Surgical History H/O shoulder replacement H/O knee surgery H/O wrist surgery Family History Other CAD (coronary artery disease) Social History Smoking and tobacco/nicotine status: former use of tobacco/nicotine Quit status (tobacco/nicotine): has quit using Former quit date comment: 09/2022 Second hand smoke exposure: No Alcohol intake: current Alcohol intake frequency: holidays/special occasions only Alcohol type: beer Substance/Drug Use: never Adopted: No Caregiver/support person: No Lives independently: Yes Marital status: Single Number of children: 1 service: No Current occupational status: employed 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 Current occupational exposures/hazards: Yes Pets and animals: No Do you think of yourself as: Straight/Heterosexual Current gender identity: Male Physical Exam Const: COMMON NORMALS: alert HENMT: COMMON NORMALS: normocephalic HEAD & SCALP: normocephalic Neck/C-Spine: COMMON NORMALS: full ROM Resp: COMMON NORMALS: normal respiratory effort and clear to auscultation bilaterally AUSCULTATION: clear to auscultation bilaterally Cardio: COMMON NORMALS: regular rate RATE: regular rate Back/Pelvis: COMMON NORMALS: thoracic and lumbar spine normal to inspection Extremity: LEFT UPPER EXTREMITY: Yes shoulder joint (Decreased abduction, anterior shoulder pain on palpation) Left shoulder joint: Yes inspection, Yes palpation, Yes ROM and Yes neurovascular exam Neuro: SENSORIUM/ORIENTATION: Yes alert Skin: COMMON NORMALS: turgor normal GENERAL SKIN EXAM: turgor normal Course Vital Signs: Vital signs: Vital Signs Temperature 97.7 F 09/03/23 16:31 Pulse Rate 76 09/03/23 16:31 Respiratory Rate 18 09/03/23 16:31 Blood Pressure 112/73 09/03/23 16:31 Pulse Oximetry 96 09/03/23 16:31 Oxygen Delivery Me thod Room Air 09/03/23 16:31 MDM - Extremity (Nontraumatic) Medical Decision Making Patient comes in today for complaints of left shoulder pain. Patient reports slipping this morning and catching himself with a outstretched left arm with most of his body weight being suspended by the arm. Patient has anterior shoulder tenderness on the left side. Distal pulses and sensation are intact. Decreased range of motion due to pain. No shoulder drop-off is noted. Differential diagnosis includes but not limited to fracture, sprain, shoulder impingement syndrome, AC joint separation. X-ray of the shoulder was unremarkable. Believe patient most likely has a rotator cuff injury. Recommend treatment for sprain and follow-up with orthopedist for further evaluation and care. Patient reported understanding and agreed to plan. Lab Data Radiology Impressions Shoulder X-Ray 09/03/23 16:35 IMPRESSION: No acute findings. All radiology interpretation(s) finalized by discharge Discharge Plan Discharge Patient Disposition: Home Clinical Impression: Rotator cuff injury Qualifiers: Encounter type: initial encounter Laterality: left Qualified Code(s): S46.002A - Unspecified injury of muscle(s) and tendon(s) of the rotator cuff of left shoulder, initial encounter Condition: Stable Prescriptions: New naproxen 500 mg tablet 500 mg PO BID Qty: 20 0RF hydrocodone-acetaminophen 5-325 mg tablet 1 tab PO Q6H PRN (Reason: pain (scale score 7-10)) Qty: 10 0RF No Action amlodipine 10 mg tablet 10 mg PO DAILY Qty: 90 3RF atorvastatin 40 mg tablet 20 mg PO BEDTIME Qty: 90 3RF isosorbide mononitrate 30 mg tablet extended release 24 hr 30 mg PO DAILY Qty: 90 0RF varenicline [Chantix] 1 mg tablet 1 mg PO BID aspirin 325 mg Tablet 325 mg PO DAILY nitroglycerin 0.4 mg Tablet, Sublingual 0.4 mg sublingual Q5M PRN (Reason: Chest Pain) Qty: 25 0RF metoprolol succinate 50 mg tablet extended release 24 hr 25 mg PO DAILY Qty: 90 3RF losartan 100 mg tablet 50 mg PO DAILY Qty: 90 3RF Discharge Orders: Discharge ED (Routine); Ordered 09/03/23 Ordered By: Jalen Lew Referrals: Jose Ewing DO [Primary Care Provider] - Discharge Diet: Usual diet Discharge Activity: Increase activity as tolerated Patient Instructions: Shoulder Sprain (ED) Activity Restrictions/Additional Instructions: Activity as tolerated. Use ice to the shoulder for the next 2 to 3 days to help with pain and discomfort. Take naproxen 500 mg twice a day for inflammation and pain control. Use acetaminophen for further pain control. Use hydrocodone for severe pain. Follow-up with primary care as needed. Case management will contact you regarding follow-up appointment with orthopedist office. Return to ER for new concerns. Coding Level of Care Code ED Medical Collector for Everton Sharpe
[2023-09-03] MEDS: ketorolac 30 mg/mL INJ IM (17:22)
[2023-09-03] MEDS: HYDROcodone-acetaminophen 7.5-325 mg Tablet 1 TAB PO (17:22)
--- NOTE | 2023-09-04 07:57 | DCPLANNER ---
Message was sent to ortho clinic on 09/04/23 at 0758 am. Clinic to contact patient
== END 2023-09-03 17:38 | disposition home or self-care (01) ==
PROVIDERS: Emergency Provider Nurse Practitioner Family; PCP Family Medicine
DX: S46.002A Unspecified injury of muscle(s) and tendon(s) of the rotator cuff of left shoulder, initial encounter (principal); Z79.82 Long term (current) use of aspirin; I10 Essential (primary) hypertension; Z87.891 Personal history of nicotine dependence; W01.0XXA Fall on same level from slipping, tripping and stumbling without subsequent striking against object, initial encounter
CPT/HCPCS: 73030; 96372; 99284; J1885

== ENCOUNTER 2023-09-12 08:54 | Outpatient (CLI) | payer BC, MEDICAID, SELFPAY ==
--- NOTE | 2023-09-12 09:00 | CT_ITS ---
WS: [id number] CT LEFT KNEE, NONCONTRAST NAIN TECHNIQUE: Noncontrast CT of the LEFT knee to include the LEFT hip and ankle. CLINICAL INFORMATION: LEFT TOTAL KNEE ARTHROPLASTY COMPARISON: None. DLP: 905.[address] scans at [facility] use at least one of these dose optimization techniques: automated e xposure control; mA and/or kV adjustment per patient size (includes targeted exams where dose is matc hed to clinical indication); or iterative reconstruction. FINDINGS: Advanced tricompartment arthritis LEFT knee. Hypertrophic changes along the joint line. Small suprapa tellar effusion. Hypertrophic patella. Sigmoid diverticulosis. Mild degenerative narrowing both hips. IMPRESSION: Images obtained for preoperative purposes.
== END 2023-09-12 08:55 | disposition home or self-care (01) ==
LOC: RAD 08:55
PROVIDERS: PCP Family Medicine; Visit Provider Student in an Organized Health Care Education/Training Program
DX: M17.12 Unilateral primary osteoarthritis, left knee (principal); S49.92XA Unspecified injury of left shoulder and upper arm, initial encounter; S46.002A Unspecified injury of muscle(s) and tendon(s) of the rotator cuff of left shoulder, initial encounter; W18.49XA Other slipping, tripping and stumbling without falling, initial encounter
CPT/HCPCS: 73030; 73700

== ENCOUNTER 2023-09-29 12:15 | Observation (INO) | payer BC, MEDICAID, SELFPAY ==
[2023-09-29] VITALS (13 sets, daily range): BP systolic 95–135; BP diastolic 66–89; PULSE 62–78; RESP 15–18; TEMP 36.2–36.7; O2SAT 90–99; BMI 30.8
[2023-09-29 08:21] LABS: Add Urine Microscopic? NO; Charge for UA Resulting for Rev
[2023-09-29] MEDS: lactated ringers 500 ML IV (08:35)
[2023-09-29] MEDS: scopolamine 1.5 Patch 1 PATCH TRANSDERMA (08:35)
[2023-09-29] MEDS: ketorolac 30 mg/mL INJ IVP (08:35)
[2023-09-29] MEDS: sodium chloride 0.9% 1,000 ML 30 ML IV (08:35)
[2023-09-29] MEDS: acetaminophen 1,000 MG/100 ML PIGGYBACK 400 MG IV ×3 (08:35→23:36)
[2023-09-29 08:40] LABS: Bilirubin Urine Neg (Negative); Blood Urine Neg (Negative); Glucose Urine UA Norm (Normal); Ketones Urine Negative (Negative); Leukocyte Esterase Urine Negative (Negative); Nitrate Urine Negative (Negative); Protein Urine Neg (Negative); Urine Appearance Clear (CLEAR); Urine Color Yellow (Yellow); Urobilinogen Urine Norm (Negative); pH Urine 5 (5-7)
[2023-09-29 08:55] LABS: Basophils # 0.1 10^3/uL (0.0-0.1); Eosinophils # 0.1 10^3/uL (0.0-0.8); Eosinophils % 1.7 %; Hematocrit 42.9 % (37-53); Lymphocytes # 1.7 10^3/uL (0.8-4.8); Lymphocytes % 21.4 %; Mean Corpuscular Hemoglobin 29.6 pg (27-33); Mean Corpuscular Volume 86.8 fl (82-101); Mean Platelet Volume 9.2 fL (7.4-10.4); Monocytes # 0.6 10^3/uL (0.2-0.9); Monocytes % 7.1 %; Neutrophils # 5.29 10^3/uL (1.8-7.7); Neutrophils % 68.4 %; Nucleated Red Blood Cells % 0 %; Platelet Count 277 10^3/cmm (157-399); Red Blood Count 4.94 10^6/uL (3.85-5.65); Red Cell Distribution Width 14.3 % (12.1-15.1); White Blood Count 7.74 10^3/uL (3.29-11.43)
--- NOTE | 2023-09-29 08:57 | P.ANESASSM_ITS ---
Pre-Anesthetic Assessment Height/Weight: Height 1.78 m Weight 97.522 kg Temp Pulse Resp BP Pulse Ox O2 Del Method 97.6 F 67 18 115/85 95 Room Air 09/29/23 07:56 09/29/23 07:56 09/29/23 07:56 09/29/23 07:56 09/29/23 07:56 09/29/23 08:02 Operation Date: 09/29/23 09:45 Proposed Procedures p Hai Robot Total Knee Arthroplasty(Left) - Mino Philip, DO Was Beta Rita taken within 24 hours: Yes Was Clonidine taken within 24 hours: N/A Last intake: Intake Last Liquid Date 09/28/23 Last Liquid Time 19:30 Last Solid Date 09/28/23 Last Solid Time 19:30 Exam alert and oriented x 3 Airway Submandibular: within normal limits Cervical ROM: within normal limits History/ROS No significant history except as noted and No significant complaints CV/HEM Hypertension Anesthetic Plan ASA status: 2 Anesthesia: Regional (specify below) Other: Spinal + adductor canal block Risk of > 500 ml blood loss (7ml/kg in children): No Medications/Allergies Home Medications Medication Instructions Recorded Confirmed Last Taken Type aspirin 325 mg tablet 325 mg PO DAILY 05/12/23 09/29/23 09/08/23 History nitroglycerin 0.4 mg sublingual 0.4 mg sublingual Q5M PRN Chest 05/14/23 09/29/23 Unknown Rx tablet Pain #25 tabs losartan 100 mg tablet 50 mg (1/2 x 100 mg) PO DAILY #90 05/15/23 09/29/23 09/28/23 Rx tabs metoprolol succinate 50 mg 25 mg (1/2 x 50 mg) PO DAILY #90 05/15/23 09/29/23 09/29/23 Rx tablet,extended release 24 hr tabs amlodipine 10 mg tablet 10 mg PO DAILY #90 tabs 08/11/23 09/29/23 09/28/23 Rx atorvastatin 40 mg tablet 20 mg (1/2 x 40 mg) PO BEDTIME #90 08/11/23 09/29/23 09/28/23 Rx tabs isosorbide mononitrate 30 mg 30 mg PO DAILY #90 tabs 08/11/23 09/29/23 09/29/23 Rx tablet,extended release 24 hr varenicline 1 mg tablet (Chantix) 1 mg PO BID 08/27/23 09/29/23 09/28/23 History hydrocodone 7.5 mg-acetaminophen 1 tab PO BID PRN Pain 09/19/23 09/29/23 Unknown History 325 mg tablet Allergies Allergy/AdvReac Type Severity Reaction Status Date / Time morphine Allergy ADR-Itching Verified 09/19/23 08:18 Current Medications Generic Name Dose Route Start Last Admin Trade Name Adolfo PRN Reason Stop Dose Admin Sodium Chloride 1,000 mls @ 30 mls/hr 09/29/23 07:45 09/29/23 08:35 Sodium Chloride 0.9% IV 09/30/23 07:44 30 mls/hr .Q24H SARAHI Administration PFSH Anesthesia Medical History Abnormal heart rhythm Atrial fibrillation, around 30 years of age, cardioversion, after alcohol intake Essential hypertension Surgical History H/O shoulder replacement H/O knee surgery H/O wrist surgery Family History Other CAD (coronary artery disease) Social History Smoking and tobacco/nicotine status: former use of tobacco/nicotine Quit status (tobacco/nicotine): has quit using Former quit date comment: 09/2022 Second hand smoke exposure: No Alcohol intake: current Alcohol intake frequency: holidays/special occasions only Alcohol type: beer Substance/Drug Use: never Adopted: No Caregiver/support person: No Lives independently: Yes Marital status: Single Number of children: 1 service: No Current occupational status: employed 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 Current occupational exposures/hazards: Yes Pets and animals: No Do you think of yourself as: Straight/Heterosexual Current gender identity: Male Data Anesthesia 09/29/23 08:00 09/29/23 08:00 Short CBC 09/29/23 Range/Units 08:00 WBC 7.74 (3.29-11.43) 10^3/uL Hgb 14.60 (11.27-16.99) g/dL Hct 42.9 (37-53) % MCV 86.8 (82-101) fl Plt Count 277 (157-399) 10^3/cmm Neut % (Auto) 68.4 % Neut # (Auto) 5.29 (1.8-7.7) 10^3/uL Urine 09/29/23 Range/Units 08:10 Urine Color Yellow (Yellow) Urine Appearance Clear (CLEAR) Urine pH 5 (5-7) Ur Specific [place] 1.020 (1.005-1.030) Urine Protein Neg (Negative) Urine Glucose (UA) Norm (Normal) Urine Ketones Negative (Negative) Urine Nitrate Negative (Negative) Urine Bilirubin Neg (Negative) Ur Leukocyte Esterase Negative (Negative) Cardiac Studies: 2 Echocardiogram 05/13/23 Sestamibi Stress Test (Cardiology) 05/14
[2023-09-29 09:11] LABS: Blood Urea Nitrogen 13 mg/dL (6-20); Calcium 9.4 mg/dL (8.5-10.5); Carbon Dioxide 21 mmol/L (22-29); Chloride 101 mmol/L (98-107); Creatinine Clr Calc Pharmacy 90.9642; Glucose 99 mg/dL (65-115); Osmolality Calculated 278 mOsm/kg (285-295); Sodium 134 mmol/L (136-145)
[2023-09-29 09:13] LABS: Anion Gap 15.9 (5-19); Potassium 3.9 mmol/L (3.5-5.1)
--- NOTE | 2023-09-29 09:38 | W.PM.OPSUD ---
Surgery/Procedure H&P Update DATE OF PROCEDURE: September 29, 2023 DATE H&P PERFORMED: 09/12/23 H&P UPDATE INFORMATION: I have reviewed H&P completed within last 30 days, I have examined patient prior to procedure and No changes to prior documentation CHANGES TO PREVIOUS DOCUMENTATION: No change in HPI from his last office visit he has been cleared by the preoperative clearance team dago labs cleared to proceed with surgical intervention no changes in overall health since his last visit. Patient understands and agrees with current plan. All questions answered. Proceed with left total knee arthroplasty today. PREOP DIAGNOSIS: Left knee degenerative joint disease PRIMARY INDICATION FOR PROCEDURE: Left knee degenerative joint disease PLANNED PROCEDURE: Operation Date: 09/29/23 09:45 Proposed Procedures p Hai Robot Total Knee Arthroplasty(Left) - Mino Philip DO
[2023-09-29] MEDS: ceFAZolin 2,000 MG in sodium chloride 0.9% (plus) 50 ML 100 MG IV ×2 (09:49→19:36)
[2023-09-29] MEDS: tranexamic acid 1,000 mg/10mL SDV 1000 MG IV (10:30)
[2023-09-29] MEDS: ketorolac 30 mg/mL INJ XX (10:52)
[2023-09-29] MEDS: EPINEPHrine 1 mg/mL INJ XX (10:52)
[2023-09-29] MEDS: ROPivacaine 0.2% Premix 100 mL 200 MG INTRA-ARTI (10:52)
[2023-09-29] MEDS: tranexamic acid 1,000 mg/10mL SDV 1000 MG XX (10:52)
[2023-09-29] MEDS: vancomycin 1,000 MG SDV 1000 MG XX (10:55)
--- NOTE | 2023-09-29 12:14 | W.PM.BPON ---
Date of Procedure: 09/29/2023 Surgeon: Mino Philip DO Pulmonology Technician(s): Behzad Philip PA-C Procedure(s) performed: Left total knee arthroplasty Hai robotic assisted Findings of the procedure(s): Patient had severe left knee degenerative joint disease with tricompartmental arthritic changes underwent left total knee arthroplasty Hai robotic assisted with no issues or complications procedure went as planned. Estimated blood loss: 25 mL Specimen(s) removed: Tibia femur and patellar bone cuts removed Post-operative diagnosis: Left knee degenerative joint disease
--- NOTE | 2023-09-29 12:15 | PM.OP ---
Operative Report Date of procedure: September 29, 2023 Surgeon: Mino Philip DO Export Traffic Department Manager: Behzad Philip PA-C: PA was necessary for assistance in this case with leg positioning retraction and protection of neurovascular structures as well as assistance in implantation wound closure and dressing application. Procedure: Preoperative diagnosis: Left knee degenerative joint disease Post-op diagnosis: Same Procedure done: Left total knee arthroplasty, cemented?robotic assisted Hai Implants: [place] triathlon size 4 femur CR cemented?left [place] triathlon size? 4 tibia universal baseplate cemented [place] triathlon symmetric patella size 33 mm Kathy triathlon polyethylene 10mm Surgeon: Mino Philip DO Estimated blood?loss: 25 mL Tourniquet 58minutes IV fluids: 1000 mL Urine output: 350 mL Complications: None Condition: stable Disposition: floor Brief History: Patient is a 53-year-old male with with chronic?left knee degenerative joint disease.? Patient has been worked up in the outpatient setting in the orthopedic office at this point time through shared decision making given? fild-my-jipi arthritis as well as failed conservative treatment, and pt would?like to proceed with a?left total knee arthroplasty.? Through shared decision making elected to proceed with surgical intervention for?left total knee arthroplasty.? We talked about continued conservative treatment and surgical intervention as far as the risk benefits complications alternatives surgical and nonsurgical treatment options.? At this point time understanding patient risks with surgery he agrees to proceed with surgical intervention.? Once again? risk with surgery include but are not?limited to make it better make it worse blood clot, heart attack, stroke, on the table, infection, injury to nerves or vessels, persistent pain, arthrofibrosis, implant failure.? Understanding these risks patient agrees to proceed with surgical intervention consent was obtained in the office.? All questions answered. Procedure: Patient was seen and evaluated in the preoperative holding area.? Consent was reviewed and signed with patient with plan for?left total knee arthroplasty.? All questions answered.? Correct extremity marked.? Patient seen and evaluated by the anesthesia department and once cleared for surgery was taken back to the operative suite.? Patient was placed into a supine position on the OR table.? All bony prominences were well-padded.? Patient was appropriately secured to the bed.? Patient underwent anesthesia per the anesthesia department.? Patient received spinal anesthesia and? [place] catheter was placed.? A nonsterile tourniquet was applied to the?left thigh.? At this point in time a final timeout performed.? Patient received appropriate preoperative antibiotics and TXA. Next the?left?lower extremity was then prepped and draped in standard orthopedic fashion. Esmarch tourniquet was used exsanguinate the?left?lower extremity.? Tourniquet was insufflated to 250 mmHg. A standard anterior incision was made over midline of the knee.? Sharp scalpel excision through skin and subcutaneous tissue full-thickness skin flaps were made.? Fascia was elevated off of the extensor retinaculum was stable with medial parapatellar arthrotomy was then made.? The performed standard sequential releases..? Immediately on entry into the joint patient was found to have severe eburnated bone and tricompartmental arthritic changes noted.? With significant osteophyte formation.? Next the the patella was then stuffed and the knee was then flexed.?? Carolin was placed superiorly around the anterior aspect of the femur this was freed of synovium and I subsequently then placed by 2 femur pins to establish my femur arrays for the Hai robot.? These were then placed bicortically and? femur array was then appropriately secured with appropriate visualization.? Next attention was turned towards the tibial rays.? These were then drilled sequentially bicortically in parallel fashion and intraincisional.? I then placed my guide as well as my tibial array on in place.? This was appropriately secured and had excellent visualization with the Hai robot.? Next the tibial checkpoint as well as femur checkpoint were then placed.? At this point time I then subsequently established my head center as well as my medial?lateral malleoli as well as my checkpoints.? Next utilizing standard Hai technology I then mapped out the appropriate points and confirmation points around the femur as well as the tibia in standard fashion.? Once this was then done I then removed all osteophytes in preparation for dynamic testing.? All osteophytes were removed as well as I removed the ACL and the PCL was excised due to its significant tearing and degeneration noted.? At this point time the knee was brought into full extension and we performed our standard evaluation of our gap balancing stressing his?ligaments and extension as well as flexion appropriate adjustments were made to have appropriate gap balancing in both flexion and extension.? This plan for final counts.? We get a preoperative plan evaluating our implants which was a size 4 femur and a size 3 for tibia.? Next we brought in the Hai robot and sequentially made our femur cuts.? All excess bony cuts were then removed.? Finally we made our tibial cut.? Once this was done a standard PCL retractor was then placed into this position I excised the medial and?lateral meniscus.? The tibial cut was then subsequently removed all excess bony debris was removed.? I then utilized a?lamina black top spreader machine operator and remove the posterior osteophytes.? At this point time sized the tibia and confirmed this was a size 4.? I utilized our blunt probe to establish rotation of tibial implant.? Once this was done I then placed my tibia size 4 trial in appropriate position and then subsequently placed tibial pins to hold this into place placed a size 10 mm poly as well as a size 4 femur which was appropriately impacted in place knee was then subsequently brought into extension. Trials were then assessed,? this was stable with varus valgus stress in extension as well as had symmetrical translation when brought into flexion demonstrating symmetrical gaps. Patient had full range of motion. I had excellent balance gaps in flexion and extension with varus and valgus stresses.? At this point I was satisfied with these implants these were then verified and opened on the back table size 4 tibia, size4 femur,? size 10 mm polythickness.? We did confirm appropriate gap balancing and stresses as well as alignment utilizing? Hai and were satisfied with this plan.? ?At this point time with my trials in place I then towel clip the patella everted this made appropriate measurements subsequently utilizing freehand technique performed by patellar resurfacing this was confirmed to be appropriate resection and subsequently sized to be a 33 mm symmetric.? My drill peg guides were then clamped and appropriate position and appropriate position in the patella for appropriate tracking and parallel with the joint.? Pegs were drilled trial implant was placed and the knee was then subsequently ranged and found to have excellent patellar tracking.? Femur pegs were then drilled.? Satisfied with our tibial placement rotation I then utilized the keel punch and prepped the tibia.? At this point time all of our trial implants were removed.? All checkpoints as well as guidepins and arrays were removed and appropriate counts made.? The wound bed? was thoroughly irrigated and dried and prepped for cementation.? Cement was mixed on the back table.? Once cement was ready this was then covered onto the tibia and the tibial baseplate was then impacted and all excess cement was removed.? Next the polyethylene was then impacted into place on the tibial baseplate.? Next cement was placed onto the femur as well as under the femur implants and impacted in to place and all excess cement was extruded and removed.? Knee was taken into full extension? to clear all excess cement was removed.? Warm saline was placed over the joint.? I then towel clip patella and dried for cementation. cemented the patella into place.? This was all clamped and the cement was allowed to cure.? Thorough irrigation performed with pulse?lavage.? I then placed my periarticular injection while the cement was curing.? Once cured the knee was taken through range of motion and had excellent stability and gaps were balanced in flexion and extension.? Tourniquet was then deflated. hemostasis satisfactory with electrocautery.? Next I then subsequently closed the capsule with Ethibond suture as well as a running strata fix suture.? Knee was then taken through range of motion 30 times.? Next the skin was then closed in?layered fashion of running stratifix sutures of deep and subcutenous tissue and skin.? ?closed in flexion and Prineo glue was then placed over the incision this allowed to cure.? Incision was covered with Silverlon, with ABDs soft roll and Dario wrap.? Patient was then awakened from anesthesia and taken to PACU in stable condition. Disposition: Patient taken to PACU in stable condition will be admitted to the floor for pain control PT/OT weight-bear as tolerated?left?lower extremity dressing changes as needed, DVT prophylaxis. Pain control. Patient will receive appropriate postoperative antibiotics. patient will be seen today by the internal medicine team for medical management.? Patient will follow up with the office in 2 weeks.? Patient understands agrees with current plan.? All questions answered.
--- NOTE | 2023-09-29 12:23 | XR_ITS ---
WS: [id number] Exam: XR knee LT 1-2V 33406 Date/Time of Exam: 09/29/2023 12:25 PM Reason For Exam: post L TKA Comparison 08/15/2023. The LEFT total knee replacement is noted. Position is satisfactory. Postoperative changes in the michele cent soft tissues. IMPRESSION: 1. LEFT total knee replacement in satisfactory position.
--- NOTE | 2023-09-29 12:26 | PM.PACU ---
PACU note Narrative: Patient is a 53-year-old male just underwent a left total knee arthroplasty. Pt transferred to PACU in stable condition. Dressing is dry. pt is awake and alert. pt can wiggle toes and plantarflex and dorsiflex foot. pt able to perform straight leg raise, Femoral nerve intact. Distal pulses are palpable toes are warm and well-perfused. Cap refill is normal and under 2 seconds. Sensation to foot is intact. Pain is controlled. Exam: awake Disposition: admitted
[2023-09-29] MEDS: chlorhexidine gluconate 0.12% Btl 473 mL 30 ML MUCOUS MEM ×3 (13:09→21:20)
[2023-09-29] MEDS: oxyCODONE 5 mg IR Tab/Cap PO ×2 (13:09→19:35)
[2023-09-29] MEDS: lactated ringers 1,000 ML 100 ML IV ×2 (13:10→23:36)
[2023-09-29] MEDS: tranexamic acid 1,000 MG/100 ML PREMIX 600 MG IV (15:33)
[2023-09-29] MEDS: calcium carb-vit d 600mg/400unit 1 Tablet 1 EACH PO (17:48)
[2023-09-29] MEDS: docusate sodium 100 mg Capsule PO (17:48)
[2023-09-29] MEDS: iron polysaccharide complex 150 mg Capsule PO (17:48)
[2023-09-29] MEDS: mupirocin oint 22 gm 1 APPLIC NASAL (17:48)
--- NOTE | 2023-09-29 18:34 | PC.NURSE ---
SHIFT NOTE Pt had a total left knee. Pt has reported pain at a 5 and lower each rounding completed by nurse. Fresh ice rotated PRN. Pt has been up and walking with therapy. Washington removed per nursing driven protocol. Pt tolerates fluids and medication well. No complaints of n/v. Pt does report that he is scared of taking too much pain medication, so he will request it whenever the pain is severe enough. Home medications not resumed; awaiting hospitalist consult to resume medications. Pt resting in chair and looking at cellphone at this time.
--- NOTE | 2023-09-29 18:51 | ANE.PACU2 ---
Inpatient post-anesthesia follow up: Airway intact: Yes Vital signs: Temperature 98.0 F Pulse Rate 68 Respiratory Rate 16 Blood Pressure 121/84 Pulse Oximetry 94 Oxygen Delivery Me thod Room Air Oxygen Flow Rate 6 Fraction of Inspir ed Oxygen Hydration adequate: Yes Nausea and vomiting: No Pain level: 1 Mental status: Baseline
[2023-09-30] VITALS (7 sets, daily range): BP systolic 134–142; BP diastolic 83–98; PULSE 75–92; RESP 16–18; TEMP 36.4–37.3; O2SAT 92–97; BMI 30.8
[2023-09-30] MEDS: oxyCODONE 5 mg IR Tab/Cap PO ×2 (01:18→08:29)
[2023-09-30] MEDS: ceFAZolin 2,000 MG in sodium chloride 0.9% (plus) 50 ML 100 MG IV ×2 (03:33→10:40)
[2023-09-30] MEDS: ketorolac 30 mg/mL INJ 15 MG IVP (03:36)
[2023-09-30 06:02] LABS: Basophils % 0.5 %; Eosinophils # 0.2 10^3/uL (0.0-0.8); Eosinophils % 2.2 %; Hematocrit 39.8 % (37-53); Lymphocytes # 1.3 10^3/uL (0.8-4.8); Lymphocytes % 14.9 %; Mean Corpuscular HGB Conc 33.7 g/dL (30-55); Mean Corpuscular Hemoglobin 29.7 pg (27-33); Mean Corpuscular Volume 88.2 fl (82-101); Mean Platelet Volume 9.3 fL (7.4-10.4); Monocytes # 0.6 10^3/uL (0.2-0.9); Monocytes % 6.8 %; Neutrophils % 75.3 %; Nucleated Red Blood Cells % 0 %; Platelet Count 215 10^3/cmm (157-399); Red Blood Count 4.51 10^6/uL (3.85-5.65); Red Cell Distribution Width 14.5 % (12.1-15.1); White Blood Count 8.77 10^3/uL (3.29-11.43)
[2023-09-30 06:24] LABS: Blood Urea Nitrogen 14 mg/dL (6-20); Calcium 9.2 mg/dL (8.5-10.5); Carbon Dioxide 23 mmol/L (22-29); Chloride 102 mmol/L (98-107); Creatinine Clr Calc Pharmacy 90.9642; Glucose 91 mg/dL (65-115); Osmolality Calculated 284 mOsm/kg (285-295); Sodium 137 mmol/L (136-145)
--- NOTE | 2023-09-30 08:14 | P.PN_ITS ---
<Statement entered by Mino Philip DO - 10/04/23 23:19> Agree with PAs assessment and plan, patient seen and evaluated prior to discharge he is doing well and ready for discharge home today. No issues or complications overnight. Mino Philip DO Subjective 2 Subjective: Patient is a 53-year-old male and is 1 day postop left total knee arthroplasty. Denies any acute events overnight. Patient has gotten up with Physical therapy yesterday and has been ambulating. Denies any fevers. He has been able to keep food and fluids down. Vitals/I&O/Wt Last Vital Signs Temp 97.9 F 09/30/23 07:52 Pulse 92 09/30/23 07:52 Resp 18 09/30/23 07:52 BP 142/86 09/30/23 07:52 Pulse Ox 97 09/30/23 07:52 O2 Del Method Room Air 09/30/23 07:52 O2 Flow Rate 6 09/29/23 12:32 09/29/23 09/30/23 09/30/23 22:59 06:59 14:59 Intake Total 250 / 900 1149 / 0 Balance 250 / 875 1149 / 2024 Weight last 48 hrs Weight 215 lb Weight 215 lb Weight 215 lb Physical Exam 2 Const: COMMON NORMALS: no acute distress and alert Resp: COMMON NORMALS: normal respiratory effort and No retractions Cardio: COMMON NORMALS: Peripheral pulses 2+ throughout PERIPHERAL PULSES: Peripheral pulses 2+ throughout Extremity: NARRATIVE EXTREMITY EXAM: Left lower extremity?Dario wrapped bandage and dressing is on dry and intact. Active range of motion 0 to about 80 degrees. Sensation to foot intact. Pedal pulse 2+. Patient can perform straight leg raise, dorsiflex and plantarflexion of foot. Neuro: SENSORIUM/ORIENTATION: Yes alert Skin: GENERAL SKIN EXAM: dry skin Urinary Catheter Management: [place]: Cath Placed During This Visit: yes Urinary Catheter Date of Insertion: 09/29/23 Urinary Catheter Time of Insertion: 08:53 Data 09/30/23 05:09 09/30/23 05:09 Xray Ortho: Radiologist's impression: Ordering Provider/Ordering MD: Mino Philip Date of Service: 09/29/23 Procedure(s): XR knee LT 1-2V 84198 Accession Number(s): [id number] Report Number: [id number] WS: [id number] Exam: XR knee LT 1-2V 12083 Date/Time of Exam: 09/29/2023 12:25 PM Reason For Exam: post L TKA Comparison 08/15/2023. The LEFT total knee replacement is noted. Position is satisfactory. Postoperative changes in the adjacent soft tissues. IMPRESSION: 1. LEFT total knee replacement in satisfactory position. A&P Assessment and plan (1) S/P total knee replacement using cement: Qualifiers: Laterality: right Qualified Code(s): Z96.651 - Presence of right artificial knee joint Plan Plan: -Imaging and Labs reviewed -Hospitalist on board for medical management. -DVT prophylaxis- elquis 2.5 mg BID -Weight-bear as tolerated on left leg -Pain control -PT Pt is doing well 1 day postop Left total knee replacement. Pt is cleared for discharge home today. Attestations 2 Medical Necessity Statement*: Ongoing care for left total knee arthroplasty Coding Level of Care Code Acute Code for Chg Fwd Diagnoses Status post total right knee replacement using cement Z96.651 Laterality: right
[2023-09-30] MEDS: apixaban 5 mg Tablet 2.5 MG PO (08:27)
[2023-09-30] MEDS: iron polysaccharide complex 150 mg Capsule PO (08:28)
[2023-09-30] MEDS: calcium carb-vit d 600mg/400unit 1 Tablet 1 EACH PO (08:28)
[2023-09-30] MEDS: chlorhexidine gluconate 0.12% Btl 473 mL 30 ML MUCOUS MEM (08:28)
[2023-09-30] MEDS: multivitamin therapeutic Tablet 1 TAB PO (08:28)
[2023-09-30] MEDS: docusate sodium 100 mg Capsule PO (08:28)
[2023-09-30] MEDS: acetaminophen 1,000 MG/100 ML PIGGYBACK 400 MG IV (08:29)
--- NOTE | 2023-09-30 08:29 | PM.CONSULT ---
Providers/Reason For Consult Attending Physician: Mino Philip DO Primary Care Provider: Jose Ewing DO History of Present Illness History of Present Illness Silas Solares is a 53 year old male Medications/Allergies Home Medications Medication Instructions Recorded Confirmed Last Taken Type aspirin 325 mg tablet 325 mg PO DAILY 05/12/23 09/29/23 09/08/23 History nitroglycerin 0.4 mg sublingual 0.4 mg sublingual Q5M PRN Chest 05/14/23 09/29/23 Unknown Rx tablet Pain #25 tabs losartan 100 mg tablet 50 mg (1/2 x 100 mg) PO DAILY #90 05/15/23 09/29/23 09/28/23 Rx tabs metoprolol succinate 50 mg 25 mg (1/2 x 50 mg) PO DAILY #90 05/15/23 09/29/23 09/29/23 Rx tablet,extended release 24 hr tabs amlodipine 10 mg tablet 10 mg PO DAILY #90 tabs 08/11/23 09/29/23 09/28/23 Rx atorvastatin 40 mg tablet 20 mg (1/2 x 40 mg) PO BEDTIME #90 08/11/23 09/29/23 09/28/23 Rx tabs isosorbide mononitrate 30 mg 30 mg PO DAILY #90 tabs 08/11/23 09/29/23 09/29/23 Rx tablet,extended release 24 hr varenicline 1 mg tablet (Chantix) 1 mg PO BID 08/27/23 09/29/23 09/28/23 History hydrocodone 7.5 mg-acetaminophen 1 tab PO BID PRN Pain 09/19/23 09/29/23 Unknown History 325 mg tablet Allergies Allergy/AdvReac Type Severity Reaction Status Date / Time morphine Allergy ADR-Itching Verified 09/19/23 08:18 Current Medications Generic Name Dose Route Start Last Admin Trade Name Freq PRN Reason Stop Dose Admin Calcium Carbonate 1 each 09/29/23 18:00 09/29/23 17:48 Calcium Carb-Vit D 600mg/400unit 1 Tablet PO 1 each BID SARHAI Administration Chlorhexidine Gluconate 30 ml 09/29/23 13:00 09/29/23 21:20 Chlorhexidine Gluconate 0.12% Btl 473 Ml MUCOUS MEM 30 ml QID SARAHI Administration Docusate Sodium 100 mg 09/29/23 18:00 09/29/23 17:48 Docusate Sodium 100 Mg Capsule PO 100 mg BID SARAHI Administration Acetaminophen 1,000 mg in 100 mls @ 400 mls/hr 09/29/23 16:30 09/30/23 00:10 Acetaminophen IV 09/30/23 08:44 Infused Q8H SARAHI Infusion Lactated Ringer's 1,000 mls @ 100 mls/hr 09/29/23 12:56 09/29/23 23:36 Lactated Ringers IV 100 mls/hr .Q10H SARAHI Administration Cefazolin Sodium 2,000 mg/ 50 mls @ 100 mls/hr 09/29/23 19:30 09/30/23 04:06 Sodium Chloride IV 09/30/23 11:59 Infused Q8H SARAHI Infusion Protocol Ketorolac Tromethamine 15 mg 09/29/23 12:56 09/30/23 03:36 Ketorolac 30 Mg/Ml Inj IVP 15 mg Q6H PRN Administration MODERATE TO SEVERE PAIN Mupirocin 1 applic 09/29/23 18:00 09/29/23 17:48 Mupirocin Oint 22 Gm NASAL 10/04/23 17:59 1 applic BID SARAHI Administration Protocol Oxycodone HCl 5 - 10 mg 09/29/23 12:56 09/30/23 01:18 Oxycodone 5 Mg Ir Tab/Cap PO 5 mg Q4H PRN Administration MODERATE PAIN Polysaccharide Iron Complex 150 mg 09/29/23 18:00 09/29/23 17:48 Iron Polysaccharide Complex 150 Mg Capsule PO 150 mg BIDWM SARAHI Administration PFSH Acute PFSH: Medical History Abnormal heart rhythm Atrial fibrillation, around 30 years of age, cardioversion, after alcohol intake Essential hypertension Surgical History H/O shoulder replacement H/O knee surgery H/O wrist surgery Family History Other CAD (coronary artery disease) Social History Smoking and tobacco/nicotine status: former use of tobacco/nicotine Quit status (tobacco/nicotine): has quit using Former quit date comment: 09/2022 Second hand smoke exposure: No Alcohol intake: current Alcohol intake frequency: holidays/special occasions only Alcohol type: beer Substance/Drug Use: never Adopted: No Caregiver/support person: No Lives independently: Yes Marital status: Single Number of children: 1 service: No Current occupational status: employed 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 Current occupational exposures/hazards: Yes Pets and animals: No Do you think of yourself as: Straight/Heterosexual Current gender identity: Male Vitals/I&O/Wt Last Vital Signs Temp 97.9 F 09/30/23 07:52 Pulse 92 09/30/23 07:52 Resp 18 09/30/23 07:52 BP 142/86 09/30/23 07:52 Pulse Ox 97 09/30/23 07:52 O2 Del Method Room Air 09/30/23 07:52 O2 Flow Rate 6 09/29/23 12:32 09/29/23 09/30/23 09/30/23 22:59 06:59 14:59 Intake Total 250 / 900 1149 Balance 250 / 875 1149 Weight last 48 hrs Weight 97.522 kg Weight 97.522 kg Weight 97.522 kg Physical Exam Urinary Catheter Management: [place]: Cath Placed During This Visit: yes Urinary Catheter Date of Insertion: 09/29/23 Urinary Catheter Time of Insertion: 08:53 Data 09/30/23 05:09 09/30/23 05:09 Coding Level of Care Code Acute Code for Everton Sharpe
[2023-09-30] MEDS: metoprolol succinate ER (24 HR) 50 mg Tablet 25 MG PO (09:19)
[2023-09-30] MEDS: losartan 50 mg Tablet PO (09:19)
[2023-09-30] MEDS: amlodipine 10 mg Tablet PO (09:19)
[2023-09-30] MEDS: mupirocin oint 22 gm 1 APPLIC NASAL (09:23)
--- NOTE | 2023-09-30 09:32 | PC.CHAP ---
Pastoral Care Encounter/Spiritual Assessment Type of Contact [] Declined pressure vessel inspector visit [] Patient/Family/Request visit [] Outpatient visit [] Follow-up visit [] Physician referral [] Code/Alert [x] Routine visit [] Staff referral [] Actively dying [] Patient sleeping [] Family support [] [] Out of room [] Palliative care [] [] Receiving care in room [] Pre-surgical visit [] Trauma [] Long length of stay [] ICU visit [] Other: Relational/Emotional Strength [x] Patient feels connected with others/family/visitors/staff [] Distress [] Loneliness/isolation [] Abandonment Spirituality of Patient [x] Person of Laure [] Attends Druze of their Laure [x] Believes in Prayer [] Reads Bible or Presybeterian materials [] There are Spiritual issues to be addressed Fashion Merchandiser Interventions [x] Prayer [x] Active listening [] Non-anxious presence [x] Spiritual/emotional support [] Crisis/trauma care [] Spiritual counseling [] Bereavement support [] Provided bereavement packet [] Provided Bible/devotional materials [] Provided toy/stuffed animal, coloring book to patient or family member [] Provided Communion [] Anointing/[place] [] Salvation [x] Completed spiritual assessment [] Other: Impact on Illness or Injury [] Angry [] Fearful [] Anxious [] Often cries [] Exhaustion [] Unable to work [] Unable to attend methodist [] Unable to walk/stand [] Unable to read [] Unable to drive [] Unable to eat/drink [] Unable to sleep [] Unable to be with family [] Patient intubated [] Other: Summary Time spent with patient 5 min
--- NOTE | 2023-09-30 11:00 | P.DS_ITS ---
Discharge Providers Date of Admission: 09/29/23 12:15 Date of Discharge: 09/30/2023 Attending Provider at Admission: Mino Philip DO Attending Provider at Discharge: Mino Philip DO Consults: Dr. Dowd?hospitalist Primary Care Provider: Jose Ewing DO Diagnoses at Discharge Discharge Diagnosis (1) S/P total knee replacement using cement: Status: Acute Qualifiers: Laterality: right Qualified Code(s): Z96.651 - Presence of right artificial knee joint Reason for Visit Reason for Visit: M17.12 Brief History: Status post left total knee arthroplasty Hospital Course Hospital Course Patient presented to the preoperative holding area with plan for left total knee arthroplasty after patient has been worked up in the outpatient setting for failed conservative treatment of [left ] knee degenerative joint disease. Once cleared by anesthesia for surgery patient subsequently was taken back to the operative suite underwent anesthesia per anesthesia department and then subsequently underwent a [ left] total knee arthroplasty. Procedure was performed without any complications patient was taken to PACU in stable condition patient recovered well in PACU and then was admitted to the floor postoperatively internal medicine was consulted and on board for medical management and assistance with care. Patient received appropriate PT/OT, postoperative antibiotics, postoperative TXA, pain control, postoperative DVT prophylaxis. Elevation and ice. Patient encouraged for knee range of motion allowed weightbearing as tolerated to the operative lower extremity. Dressing was changed as needed, labs were monitored daily. Patient recovered well postoperatively and worked well and progressed well with therapy. It was determined on postoperative day [1 ] the patient was stable for discharge from an orthopedic standpoint and medicine. Patient was comfortable with discharge and plan was discharged home. Patient received appropriate discharge instructions as well as pain medication and DVT prophylaxis postoperatively. Given appropriate instructions for dressing management. Patient will follow-up with Dr. Philip/orthopedics in the office in 2 weeks. All questions answered. Understand if there is any issues questions or concerns and contact the office. Physical Exam Const: COMMON NORMALS: no acute distress and alert Resp: COMMON NORMALS: normal respiratory effort and No retractions Cardio: COMMON NORMALS: Peripheral pulses 2+ throughout PERIPHERAL PULSES: Peripheral pulses 2+ throughout Extremity: NARRATIVE EXTREMITY EXAM: Left lower extremity?Dario wrapped bandage and dressing is on dry and intact. Active range of motion 0 to about 80 degrees. Sensation to foot intact. Pedal pulse 2+. Patient can perform straight leg raise, dorsiflex and plantarflexion of foot. No calf tenderness Neuro: SENSORIUM/ORIENTATION: Yes alert Skin: GENERAL SKIN EXAM: dry skin Urinary Catheter Management: [place]: Cath Placed During This Visit: yes Urinary Catheter Date of Insertion: 09/29/23 Urinary Catheter Time of Insertion: 08:53 Discharge Data Studies Completed and Pending Completed Studies During Hospitalization Category Date Time Status XR knee LT 1-2V [id number] Routine Exams 09/29/23 12:23 Completed Laboratory Results WBC 8.77 10^3/uL (3.29-11.43) 09/30/23 05:09 RBC 4.51 10^6/uL (3.85-5.65) 09/30/23 05:09 Hgb 13.40 g/dL (11.27-16.99) 09/30/23 05:09 Hct 39.8 % (37-53) 09/30/23 05:09 MCV 88.2 fl (82-101) 09/30/23 05:09 MCH 29.7 pg (27-33) 09/30/23 05:09 MCHC 33.7 g/dL (30-55) 09/30/23 05:09 RDW 14.5 % (12.1-15.1) 09/30/23 05:09 Plt Count 215 10^3/cmm (157-399) 09/30/23 05:09 MPV 9.3 fL (7.4-10.4) 09/30/23 05:09 Neut % (Auto) 75.3 % 09/30/23 05:09 Lymph % (Auto) 14.9 % 09/30/23 05:09 [place] % (Auto) 6.8 % 09/30/23 05:09 Eos % (Auto) 2.2 % 09/30/23 05:09 Baso % (Auto) 0.5 % 09/30/23 05:09 Neut # (Auto) 6.60 10^3/uL (1.8-7.7) 09/30/23 05:09 Lymph # (Auto) 1.3 10^3/uL (0.8-4.8) 09/30/23 05:09 [place] # (Auto) 0.6 10^3/uL (0.2-0.9) 09/30/23 05:09 Eos # (Auto) 0.2 10^3/uL (0.0-0.8) 09/30/23 05:09 Baso # (Auto) 0.0 10^3/uL (0.0-0.1) 09/30/23 05:09 Nucleated RBC % (auto) 0 % 09/30/23 05:09 Nucleated RBCs # 0.0 /100WBC 09/30/23 05:09 Sodium 137 mmol/L (136-145) 09/30/23 05:09 Potassium 4.0 mmol/L (3.5-5.1) 09/30/23 05:09 Chloride 102 mmol/L (98-107) 09/30/23 05:09 Carbon Dioxide 23 mmol/L (22-29) 09/30/23 05:09 Anion Gap 16.0 (5-19) 09/30/23 05:09 BUN 14 mg/dL (6-20) 09/30/23 05:09 Creatinine 1.1 mg/dL (0.7-1.2) 09/30/23 05:09 GFR Calculation 70.0 mL/min (90-130) L 09/30/23 05:09 Glucose 91 mg/dL (65-115) 09/30/23 05:09 Calculated Osmolality 284 mOsm/kg (285-295) L 09/30/23 05:09 Calcium 9.2 mg/dL (8.5-10.5) 09/30/23 05:09 Urine Color Yellow (Yellow) 09/29/23 08:10 Urine Appearance Clear (CLEAR) 09/29/23 08:10 Urine pH 5 (5-7) 09/29/23 08:10 Ur Specific [place] 1.020 (1.005-1.030) 09/29/23 08:10 Urine Protein Neg (Negative) 09/29/23 08:10 Urine Glucose (UA) Norm (Normal) 09/29/23 08:10 Urine Ketones Negative (Negative) 09/29/23 08:10 Urine Blood Neg (Negative) 09/29/23 08:10 Urine Nitrate Negative (Negative) 09/29/23 08:10 Urine Bilirubin Neg (Negative) 09/29/23 08:10 Urine Urobilinogen Norm mg/dL (Negative) 09/29/23 08:10 Ur Leukocyte Esterase Negative (Negative) 09/29/23 08:10 Blood Type O Positive 09/29/23 08:00 Rho(D) Type Rh positive 09/29/23 08:00 Antibody Screen Negative 09/29/23 08:00 Vitals Last Vital Signs Temp 97.5 F L 09/30/23 11:45 Pulse 79 09/30/23 11:45 Resp 18 09/30/23 11:45 BP 134/98 09/30/23 11:45 Pulse Ox 93 09/30/23 11:45 O2 Del Method Room Air 09/30/23 11:45 O2 Flow Rate 6 09/29/23 12:32 Discharge Plan Discharge Patient Disposition: Home Condition: Stable Prescriptions: New Eliquis 2.5 mg tablet 2.5 mg PO BID 14 Days Qty: 28 0RF Continued amlodipine 10 mg tablet 10 mg PO DAILY Qty: 90 3RF atorvastatin 40 mg tablet 20 mg PO BEDTIME Qty: 90 3RF isosorbide mononitrate 30 mg tablet extended release 24 hr 30 mg PO DAILY Qty: 90 0RF nitroglycerin 0.4 mg Tablet, Sublingual 0.4 mg sublingual Q5M PRN (Reason: Chest Pain) Qty: 25 0RF metoprolol succinate 50 mg tablet extended release 24 hr 25 mg PO DAILY Qty: 90 3RF losartan 100 mg tablet 50 mg PO DAILY Qty: 90 3RF Held aspirin 325 mg Tablet 325 mg PO DAILY Hold Instructions: Resume on 10/13/23. Discontinued hydrocodone-acetaminophen 7.5-325 mg tablet 1 tab PO BID PRN (Reason: Pain) No Action varenicline 1 mg tablet See Rx Instructions .ROUTE .COMPLEX Qty: 60 1RF Dose Instruction: TAKE ONE TABLET BY MOUTH TWICE DAILY Rx Instructions: TAKE ONE TABLET BY MOUTH TWICE DAILY oxycodone 5 mg tablet 5 mg PO Q6H PRN (Reason: pain postop) 7 Days Qty: 28 0RF Discharge Orders: Discharge Order (Routine); Ordered 09/30/23 Ordered By: Mino Philip Referrals: Jose Ewing DO [Primary Care Provider] - (We have notified your physician's clinic of the need for a follow-up appointment to be scheduled. If you have not heard from them within the next 2 business days, please call them directly. ) Mino Philip DO [Physician] - 10/07/23 9:30 am Discharge Diet: Regular Discharge Activity: Limit activity as instructed Patient Instructions: Oxycodone, Rapid Release (By mouth), Ondansetron (By mouth) (Zofran, Zofran ODTVíctoruplenz), Apixaban (By mouth) (Eliquis), Precautions after Total Joint Replacement Surgery (DC), Joint Replacement Surgery (DC) Activity Restrictions/Additional Instructions: Keep incisions clean dry and intact, leave Silverlon bandage dressings on in place for 7 days after that may rinse incisions with warm soapy water pat dry and redress with a dry dressing. Patient may weight-bear as tolerate to the operative extremity Utilize crutches as needed Encourage knee range of motion Ice and elevate as needed for pain and swelling Take pain medication as prescribed Take antinausea medication as needed The prescribed Eliquis twice daily for the next 14 days for blood clot prevention May supplement for pain with ibuprofen [id number] as needed No baths or soaks Follow-up in the orthopedic office in 2 weeks Contact the office for any questions or concerns Discharge Attestations Time Spent in Discharge Care*: less than 30 min Quality Metrics Clinical Quality Measures [ No reported AMI, CVA or VTE this stay] Coding Level of Care Code Acute Code for Chg Fwd Diagnoses Status post total right knee replacement using cement Z96.651 Laterality: right Time Spent (min) 20
== END 2023-09-30 11:58 | disposition home or self-care (01) ==
LOC: MEDSURG 12:16
PROVIDERS: Physician Assistant; Admitting Provider Student in an Organized Health Care Education/Training Program; PCP Family Medicine; Visit Provider Student in an Organized Health Care Education/Training Program
PROC: 8E0Y0CZ Robotic Assisted Procedure of Lower Extremity, Open Approach (ICD-10-PCS; CPT 27447; principal; 2023-09-29 09:45)
DX: M17.12 Unilateral primary osteoarthritis, left knee (principal); I10 Essential (primary) hypertension; Z79.82 Long term (current) use of aspirin; Z87.891 Personal history of nicotine dependence
CPT/HCPCS: 20985; 27447; 36415; 51702; 73560; 80048; 81003; 85025; 86850; 86900; 97110; 97116; 97161; 97165; C1776; G0378; J0131; J0171; J0690; J1885; J2250; J2371; J2704; J2795; J3010; J3370; J7030; J7120

== ENCOUNTER → 2023-10-16 13:51 | Outpatient (BNVA) | payer BC, MEDICAID, SELFPAY | PROVIDERS: PCP Family Medicine; Visit Provider Physician Assistant | DX: Z96.652 Presence of left artificial knee joint | CPT/HCPCS: 73560; 73565 ==

== ENCOUNTER → 2023-12-02 13:36 | Outpatient (BNVA) | payer BC, MEDICAID, SELFPAY | PROVIDERS: PCP Family Medicine; Visit Provider Student in an Organized Health Care Education/Training Program | DX: Z96.652 Presence of left artificial knee joint (principal); S46.002A Unspecified injury of muscle(s) and tendon(s) of the rotator cuff of left shoulder, initial encounter; X58.XXXA Exposure to other specified factors, initial encounter | CPT/HCPCS: 73560; 73565 ==

== ENCOUNTER 2023-12-30 07:45 | Outpatient (CLI) | payer BC, MEDICAID, SELFPAY ==
--- NOTE | 2023-12-30 08:00 | MR_ITS ---
WS: [id number] MRI LEFT SHOULDER HISTORY: Left shoulder Pain COMPARISON: Shoulder radiograph 09/12/2023 TECHNIQUE: Multiplanar sequences of the shoulder joint are submitted. Moderate AC joint arthritis. Osteophyte encroaching upon the distal supraspinatus at the level of the medial humeral head. Small amount of fluid in the subacromial and subdeltoid bursa. No os acromion. Biceps tendon remains in the bicipital groove. There is a small amount of increased fluid in the da ps tendon sheath. Markedly high riding humeral head abuts the undersurface of the acromion. The visible supraspinatus t endon is not identified. Supraspinatus tendon appears completely torn and retracted to the medial hum eral head. Moderate fraying of the distal visualized retracted tendon. Mild supraspinatus atrophy. No edema. Subscapularis tendon and infraspinatus tendons and teres minor appear appropriate. Significant loss of cartilage involving the humeral head. No fractures or marrow edema. No labral tea rs. MR/MR shoulder LT wo con* [id number] IMPRESSION: 1. Complete tear of the supraspinatus tendon with retraction to the medial hum eral head. 2. Advanced degenerative changes involving the humeral head. Humeral head is h igh riding. 3. Moderate AC joint arthritis encroaching upon the medial humeral head. 4. Mild biceps tenosynovitis. 5. Mild supraspinatus muscle atrophy.
== END 2023-12-30 07:46 | disposition home or self-care (01) ==
LOC: RAD 07:45
PROVIDERS: PCP Family Medicine; Visit Provider Student in an Organized Health Care Education/Training Program
DX: S46.812A Strain of other muscles, fascia and tendons at shoulder and upper arm level, left arm, initial encounter (principal); X58.XXXA Exposure to other specified factors, initial encounter; M13.812 Other specified arthritis, left shoulder; M25.712 Osteophyte, left shoulder; M67.814 Other specified disorders of tendon, left shoulder; M75.22 Bicipital tendinitis, left shoulder; M62.512 Muscle wasting and atrophy, not elsewhere classified, left shoulder
CPT/HCPCS: 73221

== ENCOUNTER 2024-03-17 09:36 | Day surgery (SDC) | payer BC, MEDICAID, SELFPAY ==
[2024-03-17] VITALS (13 sets, daily range): BP systolic 101–119; BP diastolic 72–88; PULSE 60–94; RESP 13–23; TEMP 36.1–36.6; O2SAT 92–97; BMI 30.8
[2024-03-17] MEDS: sodium chloride 0.9% 1,000 ML 30 ML IV (10:30)
[2024-03-17] MEDS: ketorolac 30 mg/mL INJ IVP (10:33)
[2024-03-17] MEDS: acetaminophen 1,000 MG/100 ML PIGGYBACK 400 MG IV (10:38)
[2024-03-17] MEDS: scopolamine 1.5 Patch 1 PATCH TRANSDERMA (10:39)
--- NOTE | 2024-03-17 11:55 | ANES.PREANE2 ---
Pre-Anesthetic Assessment Height/Weight: Height 1.78 m Weight 97.522 kg Temp Pulse Resp BP Pulse Ox O2 Del Method 97.6 F 68 16 114/79 96 Room Air 03/17/24 10:08 03/17/24 10:08 03/17/24 10:08 03/17/24 10:08 03/17/24 10:08 03/17/24 10:08 Operation Date: 03/17/24 11:25 Proposed Procedures p Shoulder Arthroscopy(Left) - Mino Cedrick, DO s Rotator Cuff Repair - Arthroscopy(Left) - Mino Itasca, DO s AC Joint Resection(Left) - Mino [place]a, DO s Bicep Tenotomy vs Bicep Tenotomy(Left) - Mino [place]asca, DO s Subacromial Decompression(Left) - Mino Cedrick, DO Familial anesthetic complications: None Was Beta Rita taken within 24 hours: N/A Was Clonidine taken within 24 hours: N/A Last intake: Intake Last Liquid Date 03/16/24 Last Liquid Time 22:00 Last Solid Date 03/16/24 Last Solid Time 21:30 Social No alcohol and No tobacco Exam alert, oriented x 3, clear to auscultation bilaterally and regular rate & rhythm Airway Mallampati: Class II Dentition: full CV/HEM Hypertension 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 Metabolic Hyperlipidemia Anesthetic Plan ASA status: 2 Anesthesia: General and Regional (specify below) Risk of > 500 ml blood loss (7ml/kg in children): No Medications/Allergies Home Medications Medication Instructions Recorded Confirmed Last Taken Type aspirin 325 mg tablet 325 mg PO DAILY 05/12/23 03/16/24 03/04/24 History nitroglycerin 0.4 mg sublingual 0.4 mg sublingual Q5M PRN Chest 05/14/23 03/16/24 Unknown Rx tablet Pain #25 tabs methocarbamol 500 mg tablet 500 mg PO Q8H muscle spasms 30 10/08/23 03/16/24 Unknown Rx days #90 tabs amlodipine 10 mg tablet 10 mg PO DAILY #90 tabs 11/04/23 03/16/24 03/17/24 Rx isosorbide mononitrate 30 mg 30 mg PO DAILY #90 tabs 11/04/23 03/16/24 03/17/24 Rx tablet,extended release 24 hr metoprolol succinate 50 mg 25 mg (1/2 x 50 mg) PO DAILY #90 11/04/23 03/16/24 03/17/24 Rx tablet,extended release 24 hr tabs rosuvastatin 10 mg tablet 10 mg PO DAILY #90 tabs 02/18/24 03/16/24 03/16/24 Rx hydrocodone 10 mg-acetaminophen 1 tab PO BID PRN pain 30 days #90 03/09/24 03/16/24 03/16/24 Rx 325 mg tablet tabs losartan 100 mg tablet 50 mg PO DAILY 03/16/24 03/16/24 03/16/24 History ondansetron 4 mg disintegrating 4 mg PO Q8H PRN nausea and 03/17/24 Unknown Rx tablet vomiting 3 days #9 tabs Allergies Allergy/AdvReac Type Severity Reaction Status Date / Time morphine Allergy ADR-Itching Verified 03/16/24 10:06 Current Medications Generic Name Dose Route Start Last Admin Trade Name Freq PRN Reason Stop Dose Admin Sodium Chloride 1,000 mls @ 30 mls/hr 03/17/24 10:00 03/17/24 10:30 Sodium Chloride 0.9% IV 03/18/24 09:59 30 mls/hr .Q24H SARAHI Administration PFSH Anesthesia Medical History Abnormal heart rhythm Atrial fibrillation, around 30 years of age, cardioversion, after alcohol intake Essential hypertension Surgical History H/O shoulder replacement H/O knee surgery H/O wrist surgery Family History Other CAD (coronary artery disease) Social History Smoking and tobacco/nicotine status: former use of tobacco/nicotine Quit status (tobacco/nicotine): has quit using Former quit date comment: 09/2022 Second hand smoke exposure: No Alcohol intake: current Alcohol intake frequency: holidays/special occasions only Alcohol type: beer Substance/Drug Use: never Adopted: No Caregiver/support person: No Lives independently: Yes Marital status: Single Number of children: 1 service: No Current occupational status: employed 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
--- NOTE | 2024-03-17 12:11 | SUR.PREOP ---
NERVE BLOCK PERFORMED.PT TOLERATED PROCEDURE WELL. NSR ON MONITOR.
--- NOTE | 2024-03-17 12:13 | ANES.PROC ---
Anesthesia Procedures Procedure/Date: 03/17/24 Nerve Block ^: Nerve Block 1: Main Anesthesia: general anesthesia Time Out Performed: Yes Consent: requested by attending/covering physician, from patient, from other, risks and benefits reviewed and patient agrees to proceed Nerve block location: interscalene (L) Anesthesia monitors applied: pulse oximetry, EKG, BP cuff and oxygen Nerve block position: semi sitting Anesthetic Used: ropivicaine 0.5% (20 ml) and with decadron (4 mg) Ultrasound used to: recognize landmarks, visualize and ID brachial plexus, in supraclavicular region and visualize and ID interscalene groove Nerve Stimulator Used?: No Interscalene/Femoral BLK: 2 stimuplex 22 g needle used for position and inplane approach, visualize local anesthetic spread and no vascular puncture identified Patient Tolerated Procedure: well Complications: none
[2024-03-17] MEDS: midazolam 1 mg/mL INJ 2 mL 2 MG IVP (12:40)
--- NOTE | 2024-03-17 12:46 | SUR.PREOP ---
medicated per doctor Reveles.
--- NOTE | 2024-03-17 12:48 | W.PM.OPSFHP ---
Same Day Surgery H&P Indication for Procedure/HPI DATE OF PROCEDURE: March 17, 2024 CHIEF COMPLAINT/INDICATIONFOR SURGICAL PROCEDURE: Left shoulder rotator cuff tear, AC joint arthritis, subacromial impingement, biceps tendinitis PREOP DIAGNOSIS: Left shoulder rotator cuff tear, AC joint arthritis, subacromial impingemen PLANNED PROCEDURE: Operation Date: 03/17/24 11:25 Proposed Procedures p Shoulder Arthroscopy(Left) - Mino Philip DO s Rotator Cuff Repair - Arthroscopy(Left) - Mino Philip DO s AC Joint Resection(Left) - Mino Philip DO s Bicep Tenotomy vs Bicep Tenotomy(Left) - Mino Philip DO s Subacromial Decompression(Left) - Mino Philip DO Medications/Allergies* Home Medications Medication Instructions Recorded Confirmed Type aspirin 325 mg tablet 325 mg PO DAILY 05/12/23 03/16/24 History losartan 100 mg tablet 50 mg PO DAILY 03/16/24 03/16/24 History Allergies/Adverse Reactions Allergy/AdvReac Type Severity Reaction Status Date / Time morphine Allergy ADR-Itching Verified 03/16/24 10:06 Current Medications: Generic Name Dose Route Start Last Admin Trade Name Freq PRN Reason Stop Dose Admin Sodium Chloride 1,000 mls @ 30 mls/hr 03/17/24 10:00 03/17/24 10:30 Sodium Chloride 0.9% IV 03/18/24 09:59 30 mls/hr .Q24H SARAHI Administration Midazolam HCl 2 mg 03/17/24 09:50 03/17/24 12:40 Midazolam 1 Mg/Ml Inj 2 Ml IVP 2 mg Q5M PRN Administration Preop Anxiety Pertinent History/Comorbid Conditions* Medical History (Updated 02/18/24 @ 08:54 by Jose Ewing DO) Abnormal heart rhythm Atrial fibrillation, around 30 years of age, cardioversion, after alcohol intake Essential hypertension Surgical History (Updated 10/16/23 @ 15:09 by GODFREY Sauer) H/O shoulder replacement H/O knee surgery H/O wrist surgery Family History (Updated 11/13/22 @ 10:50 by Alfonso Peng MD) CAD (coronary artery disease) Social History Smoking and tobacco/nicotine status: former use of tobacco/nicotine Quit status (tobacco/nicotine): has quit using Former quit date comment: 09/2022 Second hand smoke exposure: No Alcohol intake: current Alcohol intake frequency: holidays/special occasions only Alcohol type: beer Substance/Drug Use: never Adopted: No Caregiver/support person: No Lives independently: Yes Marital status: Single Number of children: 1 service: No Current occupational status: employed 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 Current occupational exposures/hazards: Yes Pets and animals: No Do you think of yourself as: Straight/Heterosexual Current gender identity: Male Pertinent Exam Findings alert, oriented x 3, operative site marked and procedure specific exam findings Please refer to detailed orthopedic examination on 01/23/2024: Shoulder exam: left Tenderness over bicepital joint C-Spine ROM: No pain Spurlings:negative ROM: Passive up to 180 Active forward flexion 45 degrees TTP Internal Rotation 5/5 left External Rotation 4/5 left O'Briens: Jobes: Pain -4/5 weakness Scanlon Impingement: positive Speeds Test: Positive Weakness Crossover/Neers test: Positive tenderness over AC joint Tenderness to palpation over left AC joint, over bicipital groove, and rotator cuff footprint. Minimal tenderness posteriorly. No C-spine pain at range of motion. Negative Spurling's. Passively goes up to 180, but actively forward flexion up to about 45 degrees. Pain with Geremias's with 4 out of 5 weakness. Positive Scanlon. Weakness and Speed's as well as pain. Positive [place]'s. 4 plus out of 5 on the external rotation. 5 out of 5 on internal rotation. Positive drop arm test Recommendations Surgery/Procedure today Other Plans: Plan to proceed to the OR today for left shoulder diagnostic and surgical arthroscopy with rotator cuff repair possible rotator cuff augmentation, subacromial decompression, AC joint resection, biceps tenotomy versus tenodesis. Patient understands the ins and outs procedure the, the risk benefits complication alternatives with surgery and through shared decision make elects proceed with surgical intervention all questions answered at this time. Coding Level of Care Code Acute Code for [place] Fwjonny
[2024-03-17] MEDS: ceFAZolin 2,000 MG in sodium chloride 0.9% (plus) 50 ML 100 MG IV (13:19)
[2024-03-17] MEDS: EPINEPHrine 1 mg/mL INJ 2 MG XX (14:30)
--- NOTE | 2024-03-17 15:48 | P.BOP_ITS ---
Date of Procedure: 03/17/2024 Surgeon: Mino Philpi DO Orange Picker Machine Operator(s): Behzad Philip PA-C Procedure(s) performed: Left shoulder diagnostic and surgical arthroscopy with massive rotator cuff partial repair Left shoulder diagnostic and surgical arthroscopy with subacromial balloon spacer Left shoulder diagnostic and surgical arthroscopy with biceps tenodesis Left shoulder diagnostic and surgical arthroscopy with labral debridement Left shoulder diagnostic and surgical arthroscopy with subacromial decompression (bursectomy and acromioplasty) Left shoulder diagnostic and surgical arthroscopy with AC joint resection (distal clavicle excision) Findings of the procedure(s): Patient was found to have a massive rotator cuff tear retracted this did have good tendon excursion but was only able to get this pulled over about 75% as result I medialized the articular margin slightly as well as then placed a medial to medial row anchors and 2 lateral row anchors for double row speed bridge repair which ultimately equated to a partial repair of this massive rotator cuff tear. At this point in time I made the decision to utilize a subacromial balloon spacer to back up this partial repair of the rotator cuff tear. Patient also underwent subacromial decompression AC joint resection labral debridement as well as biceps tenodesis. Then patient subsequently had subacromial balloon spacer placed without any issues or complications placed in a sling and taken PACU stable condition. Estimated blood loss: 15 mL Specimen(s) removed: None Post-operative diagnosis: Left shoulder massive supraspinatus rotator cuff tendon tear, biceps tendinitis/SLAP tear, labral tearing, subacromial impingement, AC joint arthritis
--- NOTE | 2024-03-17 15:55 | PM.OP ---
Operative Report Date of procedure: March 17, 2024 Surgeon: Mino Philip DO Chicken Sexer: Behzad Philip PA-C: PA was necessary for assistance in this case with shoulder positioning to execute the procedure, assistance with instrumentation, as well as implant fixation when necessary, assist with wound closure and dressing application. Procedure: Preoperative diagnosis: Left shoulder rotator cuff tear, AC joint arthritis, subacromial impingement, biceps tendinitis Post-op diagnosis:? Left shoulder massive supraspinatus rotator cuff tendon tear, biceps tendinitis/SLAP tear, labral tearing, subacromial impingement, AC joint arthritis Procedure done: Left shoulder diagnostic and surgical arthroscopy with massive rotator cuff partial repair Left shoulder diagnostic and surgical arthroscopy with subacromial balloon spacer Left shoulder diagnostic and surgical arthroscopy with biceps tenodesis Left shoulder diagnostic and surgical arthroscopy with labral debridement Left shoulder diagnostic and surgical arthroscopy with subacromial decompression (bursectomy and acromioplasty) Left shoulder diagnostic and surgical arthroscopy with AC joint resection (distal clavicle excision) Surgeon: Mino Philip DO Estimated blood?loss: [15]mL IV fluids: See anesthesia record Implants: Arthrex 2.9 BC loop and tack biceps tenodesis implant system Arthrex 4.75 double row speed bridge kit [facility] space subacromial balloon spacer Arthrex scorpion and Arthrex fiber link Complications: None Condition: stable Disposition: same day Brief History: Patient been seen and worked up in the outpatient setting for?Left?shoulder?pain.? Pt had an MRI which showed findings below.? Patient's failed conservative treatment and has weakness.? We talked about treatment options far as nonoperative and operative intervention..? We talked about risk benefits complication alternatives surgical nonsurgical treatment options.? Understanding risk of surgery pt agrees to proceed with surgical intervention.? All questions have been answered at this time.? Patient elects proceed with surgery for left shoulder diagnostic and surgical arthroscopy with rotator cuff repair possible rotator cuff augmentation, subacromial decompression, AC joint resection, biceps tenotomy versus tenodesis MR/MR shoulder LT wo con* [id number] IMPRESSION: 1. Complete tear of the supraspinatus tendon with retraction to the medial humeral head. 2. Advanced degenerative changes involving the humeral head. Humeral head is high riding. 3. Moderate AC joint arthritis encroaching upon the medial humeral head. 4. Mild biceps tenosynovitis. 5. Mild supraspinatus muscle atrophy. Procedure: Patient seen evaluated in the preoperative holding area.? Consent reviewed and signed with patient.? Once again reviewed patient's MRI results as well as? planned surgical intervention.? Correct extremity marked.? Patient seen evaluated by anesthesia department received regional anesthesia.? Once ready for surgery was taken back to the operative suite.? Patient then subsequently underwent anesthesia per the anesthesia department was transported onto the OR table.? Patient was then placed into a?lateral decubitus position with a beanbag and was appropriately secured to the bed.? All bony prominences well-padded.? Patient then had the?Left upper extremity was then prepped and draped in standard orthopedic fashion.? Patient received appropriate preoperative antibiotics.? Final timeout performed. The?Left upper extremity was then held in hanging from traction utilizing sterile technique.? Next started with standard diagnostic and surgical arthroscopy with posterior portal position introduced arthroscope into the glenohumeral joint.? Visualized the glenohumeral joint I then introduced a spinal needle within the rotator cuff interval to confirm appropriate anterior portal placement.? Once this was confirmed I then made my small incision and then introduced my arthroscopic shaver into the glenohumeral joint.? After flushing the joint fluid, was clearly evident patient had biceps tendon tearing as well as Superior labral tear. Patient had appreciable unstable biceps anchor most pronounced in the superior labrum. Given there appears to be healthy intra-articular tendon plan was for an intra-articular biceps tenodesis at the superior portion as it enters the intertubercular groove. Thermal wand introduced into the rotator interval. I then release of the rotator interval to have appropriate visualization and the ability to perform biceps tenodesis. At this point I established a purple passport cannula which was introduced. Next I performed an Arthrex loop and tap biceps tenodesis. Passer was then made around the tendon luggage tag stitch around and then thru the tendon and around twice I then utilized a thermal wand to release the biceps tendon at the anchor to perform with tenotomy. I then loaded with suture onto an Arthrex 4.75 swivel lock suture anchor. A punch was then placed in appropriate position at the entry point into the intertubercular groove just superior to the subscapularis tendon. Punch was then introduced to the appropriate depth. The suture loaded on the swivel lock was then advanced held under appropriate tension and shoulder lock anchor was then advanced and had excellent fixation. Excess suture was then cut biceps tenodesis was complete. I then utilized a thermal wand to seal the edges of the superior labrum. Next I evaluated the subscapularis tendon which was intact and no evidence of tear. ?Next there was significant?labral tearing at biceps anchor and circumferential.? ? I then subsequently utilized a a arthroscopic shaver and thermal wand to perform a?labral debridement.? This point time I then visualized the glenohumeral joint.? 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 Axillary pouch was free of?loose bodies from viewing the posterior portal.? Next a visualized the rotator cuff superiorly and there was found to be a massive rotator cuff tear retracted to the glenohumeral joint. I utilized a spinal needle to carroll this?location.? ?This completed my work within the glenohumeral joint all fluid was suctioned free of the joint.? ?Next I reintroduced the arthroscope posteriorly.? And went to the subacromial space.? I established my?lateral working portal at the site of which my spinal needle was marking of the rotator cuff tear.? Thermal wand was then introduced?laterally and then I subsequently performed extensive bursectomy of the subacromial space.? Patient had a?large anterior bone spur.? At this point time I proceeded with my AC joint resection thermal wand was used and track to the anterior edge of the acromion and then tracked all the way to the AC joint.? Once identified the AC joint this was very arthritic in nature.? Thermal wand was placed anteriorly to establish appropriate plane for AC joint resection.? Once appropriate margins and anterior inferior and anterior capsule was released I then introduced arthroscopic shaver and a bur and performed AC joint resection of both the acromion to cope plane at the AC joint and a distal clavicle resection was then performed totaling 1 cm in size and was confirmed.? This completed my AC joint resection and I then introduced the arthroscopic shaver?laterally while continuing to view posteriorly.? I then performed an acromioplasty to complete my subacromial decompression prior to fixing the rotator cuff tear.? Next the arthroscopic shaver was then used previous spinal needle spot that is marked the hole in the supraspinatus rotator cuff this was consistent with a full-thickness tear.? This was a massive size rotator cuff repair that was retracted all the way to the glenohumeral joint to utilize arthroscopic soft tissue grasper and was able to have tissue excursion to bring this right to the medial border of the articular margin. As a result this was amendable for a double row speed bridge repair however I did have to medialize my rotator cuff footprint given the retraction. I for started off with an arthroscopic bur and medialized the articular margin medially to accommodate for a better bone on bone repair. Once this footprint was prepared and debrided with a ring curette I then introduced arthroscopic shaver to debride and then was prepared for the repair. Once again utilized tissue grasper to confirm appropriate tissue excursion as well as location for the repair. Next a utilized a spinal needle to introduce man's angle perpendicular the 2 medial row anchors that were loaded with suture tape. I did utilize a fiber link suture to have excellent tension during my repair which was held by my office administrative assistant this was passed in our scopic scorpion and uses luggage tag fashion to maintain control of the rotator cuff during repair. Next I selected appropriate sized blue passport cannula this was then placed and then subsequently shuttled all 4 of my sutures from anterior to posterior fashion and appropriate spread to have excellent purchase within the thickness of the rotator cuff tendon for a repair. Once this was completed I then put prepared the location for the lateral anterior posterior anchors. I then subsequently loaded the fiber link suture and the first and third sutures loaded these up for the anterior lateral anchor 4.75 swivel lock the sutures were then subsequent loaded a punch was then subsequently placed and then under is much tension as possible to bring the tendon over this was then impacted and secured and had excellent fixation all excess sutures were removed. Loaded the second and fourth suture tape for the posterior lateral anchor this was subsequently punched under appropriate tension and then advanced. This had excellent fixation and the rotator cuff moved as a unit after the repair was performed. ?I then switched the arthroscope to the?lateral portal to confirm this repair.? I took the?shoulder?through range of motion and the rotator cuff repair was stable and moved as a unit. Given I had to rely on slightly overtensioning just to get the tendon excursion as well as there is a small area given this being a massive tear unable to get complete possible bony contact given this was a massive repair as a result at this point in time I elected I think patient would benefit from a subacromial balloon spacer as given this was a massive tear and I feel as though balloon would help encourage compression of the rotator cuff footprint downward onto the bony footprint after the repair as well as to also offer pain relief and be a cushion if unfortunately if the repair does fail. As result I elected to proceed with a subacromial balloon spacer As a result I utilized [place] orthopedic in space?subacromial?balloon system I subsequently made an appropriate measurement selected appropriate sized balloon I then opened up lateral portal slightly to accommodate for the?subacromial?balloon inserting device this was placed into appropriate position to its black line and then the instructional material director sheath was subsequently removed and the?subacromial?balloon was exposed I then subsequently filled this up to the appropriate fluid volume per the size and per [facility]?subacromial?balloon and space protocol this was subsequently insufflated had excellent positioning and at this point in time I utilized the release on the device and the guide was then subsequently removed and?subacromial?balloon spacer remained in excellent position shoulder was taken through range of motion and balloon had excellent positioning as well as protection of the exposed humeral head superiorly underneath the acromion.? This completed the procedure. All fluid was suctioned from the?shoulder.? All instruments were removed.? The?lateral incision was then closed with nylon stitches.? As well as the portal sites closed with portal nylon stitches.? Xeroform 4 x 4's ABD and tape was then applied to the?Left?shoulder?and was placed into a?shoulder?abduction pillow sling for rotator cuff repair.? Patient was then awakened from anesthesia and then taken back to PACU in stable condition.? Patient tolerated procedure without any issues. Disposition: Patient taken back in stable condition recovering well.? Dressings on in place clean dry and intact.? Will be nonweightbearing to the?Left upper extremity.? Follow rotator cuff repair protocol.? Patient to follow-up with me in the office in 2 weeks.? Patient will receive appropriate discharge instruction as well as pain medication postoperatively.? All questions answered.? We will contact the office for any questions or concerns.
--- NOTE | 2024-03-17 16:00 | PM.PACU ---
PACU note Narrative: Patient is a 54-year-old male who just underwent a left shoulder arthroscopy. Patient transferred to PACU in stable condition. Pain is well controlled. shoulder Dressing on , dry and in place. Patient's operative arm is in a shoulder immobilizer. Patient is awake and alert and able to respond to my questions accordingly. Patient's fingers are warm with good perfusion. Normal cap refill under 2 seconds. Patient able to wiggle fingers. Unable to assess further range of motion in arm due to sling. Unable to assess sensation due to residual localized anesthetic. Exam: awake Disposition: discharged
--- NOTE | 2024-03-17 17:20 | ANE.PACU2 ---
Inpatient post-anesthesia follow up: Airway intact: Yes Vital signs: Temperature 97.9 F Pulse Rate 61 Respiratory Rate 16 Blood Pressure 110/76 Pulse Oximetry 93 Oxygen Delivery Me thod Room Air Oxygen Flow Rate 8 Fraction of Inspir ed Oxygen Hydration adequate: Yes Nausea and vomiting: No Pain level: 1 Mental status: Baseline
--- NOTE | 2024-03-17 17:26 | SUR.PHASEII ---
17:15 ROM, SENSATION AND CAP REFILL PRESENT OF FINGERS OF LEFT HAND.
== END 2024-03-17 17:20 | disposition home or self-care (01) ==
PROVIDERS: PCP Family Medicine; Visit Provider Student in an Organized Health Care Education/Training Program
PROC: (CPT 29805; principal; 2024-03-17 11:05)
PROC: 0LQ24ZZ Repair Left Shoulder Tendon, Percutaneous Endoscopic Approach (ICD-10-PCS; CPT 29827; 2024-03-17 11:05)
PROC: 0RSH0ZZ Reposition Left Acromioclavicular Joint, Open Approach (ICD-10-PCS; CPT 29824; 2024-03-17 11:05)
PROC: (CPT 29826; 2024-03-17 11:05)
PROC: (CPT 23430; 2024-03-17 11:05)
PROC: (CPT 29824; 2024-03-17 11:05)
PROC: (CPT 29999; 2024-03-17 11:05)
DX: M75.102 Unspecified rotator cuff tear or rupture of left shoulder, not specified as traumatic (principal); S43.432A Superior glenoid labrum lesion of left shoulder, initial encounter; X58.XXXA Exposure to other specified factors, initial encounter; M75.42 Impingement syndrome of left shoulder; M19.012 Primary osteoarthritis, left shoulder; I10 Essential (primary) hypertension; Z87.891 Personal history of nicotine dependence; Z79.82 Long term (current) use of aspirin; I48.91 Unspecified atrial fibrillation
CPT/HCPCS: 29824; 29826; 29827; 29828; C1713; C1889; J0131; J0171; J0690; J1100; J1885; J2250; J2405; J2704; J2795; J3010; J3490; J7030

== ENCOUNTER → 2024-06-08 09:30 | Outpatient (BNVA) | payer BC, MEDICAID, SELFPAY | PROVIDERS: PCP Family Medicine; Visit Provider Family Medicine | DX: I10 Essential (primary) hypertension (principal); R79.89 Other specified abnormal findings of blood chemistry; N17.9 Acute kidney failure, unspecified | CPT/HCPCS: 80053; 85027 ==

== ENCOUNTER → 2024-09-07 08:30 | Outpatient (BNVA) | payer BC, MEDICAID, SELFPAY | PROVIDERS: PCP Family Medicine; Visit Provider Family Medicine | DX: E78.5 Hyperlipidemia, unspecified (principal); I10 Essential (primary) hypertension; Z12.5 Encounter for screening for malignant neoplasm of prostate | CPT/HCPCS: 80053; 80061; G0103 ==

== ENCOUNTER → 2024-09-28 12:49 | Outpatient (BNVA) | payer BC, MEDICAID, SELFPAY | PROVIDERS: PCP Family Medicine; Visit Provider Student in an Organized Health Care Education/Training Program | DX: Z96.652 Presence of left artificial knee joint (principal); Z47.1 Aftercare following joint replacement surgery | CPT/HCPCS: 73560; 73565 ==

== ENCOUNTER → 2024-10-22 08:46 | Outpatient (BNVA) | payer BC, MEDICAID, SELFPAY | PROVIDERS: PCP Family Medicine; Visit Provider Student in an Organized Health Care Education/Training Program | DX: M75.102 Unspecified rotator cuff tear or rupture of left shoulder, not specified as traumatic (principal); M19.012 Primary osteoarthritis, left shoulder | CPT/HCPCS: 77002 ==